=== PATIENT | female | born 1995 | race Caucasian/White ===

== ENCOUNTER 2016-06-17 17:48 | Inpatient (IN) | payer OTHER ==
[~2016-06-17] VITALS: Ht 170.2 cm; Wt 74.9 kg
[~2016-06-17 17:48] MED LIST: ACET50TA PO; IBUP-1114 PO; PRENTAB7 PO
[2016-06-17] MEDS ORDERED: IPRATROPIUM 0.5MG/ALBUTEROL 2.5MG INH SOL UD 3ML (DUONEB)(J7620) As Ordered ONE (18:19)
[2016-06-17] MEDS ORDERED: ALBUTEROL SULFATE 2.5 MG/0.5 ML INH NEB SOLN As Ordered ONE (18:20)
[2016-06-17] MEDS ORDERED: methylPREDNISolone INJ 125 MG/2 ML VIAL (J2930) As Ordered ONE (18:27)
[2016-06-17] MEDS ORDERED: ACETAMINOPHEN 325 MG TAB As Ordered ONE (18:27)
[2016-06-17 18:41] LABS: ABG BASE EXCESS -0.2 (-2.0-2.0); ABG DEVICE NASAL CANN; ABG HCO3 22.5 MEQ/L (22.0-26.0); ABG PARTIAL PRESSURE CO2 30.8 mmHg (35.0-45.0); ABG PARTIAL PRESSURE O2 80.4 mmHg (75.0-100.0); ABG STANDARD HCO3 24.3 MEQ/L (22.0-26.0); ABG TOTAL CO2 23.5 MEQ/L (22.0-29.0); ABG pH (ARTERIAL) 7.482 UNITS (7.350-7.450)
[2016-06-17 19:18] LABS: MEAN CORPUSCULAR HEMOGLOBIN 28.5 pg (27.0-33.0); MEAN CORPUSCULAR HGB CONC 34.3 g/dl (32.0-36.5); MEAN CORPUSCULAR VOLUME 83.1 fl (80.0-96.0); PLATELET COUNT, AUTOMATED 242 k/mm3 (150-450); WHITE BLOOD COUNT 29.4 K/mm3 (4.0-10.0)
[2016-06-17 19:20] LABS: CONTROL LINE HCG INT CTR LINE PRESENT
--- NOTE | 2016-06-17 19:28 | REP ---
Chest one-view HISTORY: Shortness of breath Comparison: 01/23/2015 The lungs are clear. The heart is normal in size. The pulmonary vasculature is normal in appearance. Impression: No acute disease. Signed by Victor Manuel Ramirez MD 06/17/2016 07:20 P
[2016-06-17 19:32] LABS: ALBUMIN 3.4 GM/DL (3.2-5.2); ALBUMIN/GLOBULIN RATIO 0.94 (1.00-1.93); ALKALINE PHOSPHATASE 78 U/L (45-117); ALT/SGPT 32 U/L (12-78); ANION GAP 11 MEQ/L (8-16); AST/SGOT 29 U/L (15-37); BILIRUBIN,DIRECT 0.3 MG/DL (0.0-0.2); BILIRUBIN,TOTAL 0.7 MG/DL (0.2-1.0); BLOOD UREA NITROGEN 5 MG/DL (7-18); CALCIUM LEVEL 8.3 MG/DL (8.5-10.1); CARBON DIOXIDE LEVEL 25 MEQ/L (21-32); CHLORIDE LEVEL 101 MEQ/L (98-107); CREATININE FOR GFR 0.97 MG/DL (0.55-1.02); GLOMERULAR FILTRATION RATE > 60.0 (>60); GLUCOSE, FASTING 134 MG/DL (70-105); POTASSIUM SERUM 3.2 MEQ/L (3.5-5.1); SODIUM LEVEL 137 MEQ/L (136-145)
[2016-06-17] MEDS ORDERED: ONDANSETRON 4MG/2ML VIAL (J2405) IV PRN (20:00)
[2016-06-17] MEDS: IPRATROPIUM 0.5MG/ALBUTEROL 2.5MG INH SOL UD 3ML (DUONEB)(J7620) NEB SCH (20:00)
[2016-06-17] MEDS ORDERED: ALBUTEROL SULFATE 2.5 MG/0.5 ML INH NEB SOLN INH PRN (20:00)
[2016-06-17 20:02] LABS: AMPHETAMINES LEVEL URINE NEGATIVE (NEGATIVE); BENZODIAZEPINES URINE NEGATIVE (NEGATIVE); COCAINE METABOLITE URINE POSITIVE (NEGATIVE); METHADONE URINE NEGATIVE (NEGATIVE); OPIATES URINE POSITIVE (NEGATIVE); TRICYCLIC ANTIDEPRESS URINE NEGATIVE (NEGATIVE)
[2016-06-17 20:03] LABS: CONTROL LINE INT CTR LINE PRESENT
[2016-06-17 20:13] LABS: MAGNESIUM LEVEL 1.6 MG/DL (1.8-2.4)
[2016-06-17 20:29] LABS: BANDS 2 % (< 11); BASOPHILS 1 % (0-4)
[2016-06-17 20:30] LABS: DIFF SLIDE NUMBER 391
--- NOTE | 2016-06-17 20:58 | HPE ---
DATE OF ADMISSION: 06/17/2016 This is a patient without a primary medical provider. CHIEF COMPLAINT: Overdose. The following is a brief summary of her presentation: This is a 20-year-old who experienced an overdose today. She has never had an overdose before. She is a chronic user of four bags of heroin a day for several years. She has been in a 25-day rehabilitation program at [facility] around a year ago. She has not been feeling well for the last few days. She has had a fever and a cough without production of sputum. She describes no chest pain associated with cough, but she has had paroxysms of cough leading to nausea but no vomiting. She has had no change in bowel or bladder habits. No abdominal pain. She has been having chills and diaphoresis. She ALLERGIES: She has no known drug allergies. MEDICATIONS: She does not take any medications at home, does not use any puffers. PAST MEDICAL HISTORY: Notable for: Anxiety. Back pain. Depression. Opiate dependency. PAST SURGICAL HISTORY: Unremarkable. SOCIAL HISTORY: She smokes a half a pack a day. She lives in [place]. She is [place]. She does not use any alcohol. She has been using intravenous (IV) heroin for a couple of years. She has never had a positive HIV test. She denies sharing needles. FAMILY HISTORY: Notable for mother who is 42, alive and well and father who is 46, alive and well. REVIEW OF SYSTEMS: Notable for no headache, no visual changes. No runny nose, no sore throat. No neck pain. She has a cough, which is nonproductive. No chest pain. No palpitations. No focal weakness. She denies any sores on her body or areas of discomfort on her skin. No abdominal pain. No focal weakness. She has never had a seizure. PHYSICAL EXAMINATION: Blood pressure is 112/63, pulse 108, temperature 103.1, 98% on 2 liters nasal cannula. Weight is 58.97 kg giving her a body mass index of 20.4. She is awake and interactive, somewhat flattened affect. She is diaphoretic. Head is normocephalic. Sinuses are nontender. Pupils are equal, round, and reactive, anicteric. Nasal septum is midline. Mucous membranes are moist. Neck is supple. No cervical or supraclavicular adenopathy. Breathing is symmetrical. I:E ratio is 1:3. Somewhat diminished throughout. No wheezes, rales or rhonchi. Heart is in a regular rate and rhythm. Emergency room (ER) physician noted a murmur, which I do not appreciate currently. Radial pulses are 2+. Capillary refill is less than 2 seconds. There are multiple track walter noted on her hand. She has tattoos. Abdomen: Soft, doughy, nontender. Hypoactive bowel sounds. No lower extremity edema. She is moving all four extremities. Cranial nerves II-XII are grossly intact. Sodium is 137, potassium 3.2, chloride 101, carbon dioxide 25, BUN 5, creatinine 0.97, glucose is 134, calcium is 8.3, total bilirubin is 0.7, direct bilirubin is 0.3. AST 29, ALT 32, alkaline phosphatase is 78, C-reactive protein is 10.9, albumin 3.4, TSH is 0.117. White cell count is 29.4 without a differential. Hemoglobin 11.9. Platelets 242. ESR 47. UA is pending. Toxicology screen is pending. Urine and blood culture are pending. Chest x-ray shows no acute disease. EKG shows no prolongation of the NC interval and sinus tachycardia with a rate of 101. ASSESSMENT: This is a 20-year-old with a likely upper respiratory infection. No evidence of pneumonia at this point on x-ray but possible bronchitis and/or endocarditis. The patient will require a two midnight hospital stay. PLAN: 1. Infectious disease. To treat for early pneumonia and/or bronchitis as well as endocarditis. The patient will be treated with ceftriaxone, Zithromax, as well as IV vancomycin. Blood cultures have been sent in the emergency department. Transthoracic echo is ordered. Erythrocyte sedimentation rate (ESR) will be repeated in the morning. The patient has a significant white cell count which may be augmented by the demargination related to her overdose event. 2. The patient has opiate dependence. Will likely go into withdrawal. I have started her on methadone with instructions to hold for sedation. 3. The patient has hypokalemia which will be repleted. 4. The patient has a low thyroid-stimulating hormone (TSH). Will check a free T4. 5. The patient uses tobacco. Will order a nicotine patch.
[2016-06-17] MEDS ORDERED: cefTRIAXone SOD 1 GM VIAL (J0696) As Ordered ONE (21:13)
[2016-06-17 21:42] LABS: FREE T4 1.51 NG/DL (0.76-1.46)
--- NOTE | 2016-06-17 22:05 | ECGEPIP ---
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
[2016-06-17] MEDS ORDERED: POTASSIUM CHLORIDE 10 MEQ SR TABLET PO SCH (23:00)
[2016-06-18] MEDS ORDERED: VANCOMYCIN 1000 MG/20 ML VIAL (J3370) As Ordered ONE ×3 (00:41→16:22)
[2016-06-18] MEDS: VANCOMYCIN HCL 1,000 MG, VIAL MATE ADAPTER 1 EACH in D5W 250 ML IV SCH ×3 (00:58→16:26)
[2016-06-18] MEDS ORDERED: POTASSIUM CHLORIDE 10 MEQ SR TABLET As Ordered ONE (01:00)
[2016-06-18] MEDS: SENOKOT S TAB PO SCH ×3 (01:02→20:23)
[2016-06-18] MEDS: METHADONE 10 MG TAB (S0109) PO SCH ×4 (01:03→20:24)
--- NOTE | 2016-06-18 01:37 | PHACANCOPD ---
PHARMACY VANCOMYCIN DOSING Pt Demographics Demographics Patient Age:20 , Weight: , Gender: female Adjusted Body Weight Date: 06/18/16, Adjusted Body Weight: [58.97] Kg(ACTUAL WT) Vancomycin Vancomycin Target Ranges: 15-20 mcg/ml Vancomycin Load Y/N: No Load Dose Date Time Vancomycin Load Dose: Date: Time: Vancomycin Dose Date: 06/18/16. Current Vancomycin Dose: [1 gm iv Q8H] Intermittent Dosing?: No Labs Labs Laboratory Tests 06/17/16 18:43 Red Blood Count 4.13, Mean Corpuscular Volume 83.1, Mean Corpuscular Hemoglobin 28.5, Mean Corpuscular Hemoglobin Concent 34.3, Red Cell Distribution Width 13.0 Micro Microbiology 06/17/16 Blood Culture, Received Pending 06/17/16 Blood Culture, Received Pending 06/17/16 Blood Culture, Received Pending 06/17/16 Influenza Virus Type A Antigen - Final, Complete 06/17/16 Influenza Virus Type B Antigen - Final, Complete 06/17/16 Urine Culture, Received Pending Creatinine Clearance Date:06/18/16. Creatinine Clearance: [86.9]CALCULATED. Pending Labs VANCO TROUGH ORDERED FOR 06/18@1500 Assessment and Plan Maintaining Current Dose?: Yes Reason for dose change: No Dose Change Pharmacist Note Pharmacist Note Date: 06/18/16. Pharmacist note:NEW ADMISSION W/Vancomycin consult to treat pneumonia(Azithromycin 500mg IV Q24H,Ceftriaxone 2 GM Q24H and Vancomycin ordered).Patient CRCL calculated as 86.9>Will begin w/Vancomycin 1 GM IV Q8H- draw trough @ 1500 on 06/18 .Will continue to monitor SCr and levels. TING GANDHI [facility]ARMAC[facility] Jun 18, 2016 01:37
[2016-06-18] MEDS ORDERED: AZITHROMYCIN INJ 500MG VIAL (J0456) As Ordered ONE (01:52)
[2016-06-18] MEDS: AZITHROMYCIN INJ 500 MG, VIAL MATE ADAPTER 1 EACH in D5W 250 ML IV SCH ×2 (01:56→23:19)
[2016-06-18] MEDS: NS 1,000 ML IV SCH ×2 (01:56→02:32)
[2016-06-18 04:00] VITALS: BP 109/63
[2016-06-18 08:00] VITALS: BP 107/70
[2016-06-18 08:21] LABS: ANION GAP 9 MEQ/L (8-16); BLOOD UREA NITROGEN 5 MG/DL (7-18); CALCIUM LEVEL 8.5 MG/DL (8.5-10.1); CARBON DIOXIDE LEVEL 25 MEQ/L (21-32); CHLORIDE LEVEL 112 MEQ/L (98-107); CREATININE FOR GFR 0.59 MG/DL (0.55-1.02); GLOMERULAR FILTRATION RATE > 60.0 (>60); GLUCOSE, FASTING 102 MG/DL (70-105); POTASSIUM SERUM 3.9 MEQ/L (3.5-5.1); SODIUM LEVEL 146 MEQ/L (136-145)
[2016-06-18] MEDS ORDERED: D5W 1,000 ML IV SCH (08:30)
[2016-06-18] MEDS: IPRATROPIUM 0.5MG/ALBUTEROL 2.5MG INH SOL UD 3ML (DUONEB)(J7620) NEB SCH ×4 (08:35→20:41)
[2016-06-18] MEDS ORDERED: IPRATROPIUM 0.5MG/ALBUTEROL 2.5MG INH SOL UD 3ML (DUONEB)(J7620) As Ordered ONE ×3 (08:35→15:40)
[2016-06-18 08:40] LABS: BASO # 0.1 K/mm3 (0.0-0.2); BASO % 0.4 % (0.0-1.0); EOS % 0.2 % (0.0-3.0); LARGE UNSTAINED CELL # 0.1 K/mm3 (0.0-0.4); LARGE UNSTAINED CELL % 0.3 % (0.0-4.0); LYMPH % 4.6 % (24.0-44.0); MEAN CORPUSCULAR HEMOGLOBIN 27.1 pg (27.0-33.0); MEAN CORPUSCULAR VOLUME 84.9 fl (80.0-96.0); MONO # 0.4 K/mm3 (0.0-0.8); MONO % 2.1 % (0.0-5.0); NEUTROPHILS # 18.6 K/mm3 (1.8-7.7); NEUTROPHILS % 92.4 % (36.0-66.0); PLATELET COUNT, AUTOMATED 206 k/mm3 (150-450); RED CELL DISTRIBUTION WIDTH 14.4 % (11.5-14.5); WHITE BLOOD COUNT 20.1 K/mm3 (4.0-10.0)
[2016-06-18] MEDS ORDERED: ENOXAPARIN 40 MG/0.4 ML SYRINGE (J1650) As Ordered ONE (08:55)
[2016-06-18] MEDS ORDERED: NICOTINE 21MG/24HR 1 EA TRANSDERMAL As Ordered ONE (08:55)
[2016-06-18] MEDS: ENOXAPARIN 40 MG/0.4 ML SYRINGE (J1650) SC SCH (09:00)
[2016-06-18 09:28] LABS: ERYTHROCYTE SEDIMENTATION RATE 48 mm/hr (0-20)
[2016-06-18] MEDS: NICOTINE 14 MG/24 HR TRANSDERMAL TD SCH (09:51)
[2016-06-18 10:08] LABS: CONTROL LINE INT CTR LINE PRESENT; HIV SCRN NEGATIVE (NEGATIVE); HIV SCRN1 NEGATIVE (NEGATIVE)
[2016-06-18 12:00] VITALS: BP 106/66
[2016-06-18 15:36] LABS: ANION GAP 12 MEQ/L (8-16); BLOOD UREA NITROGEN 5 MG/DL (7-18); CALCIUM LEVEL 8.4 MG/DL (8.5-10.1); CARBON DIOXIDE LEVEL 23 MEQ/L (21-32); CHLORIDE LEVEL 110 MEQ/L (98-107); CREATININE FOR GFR 0.77 MG/DL (0.55-1.02); GLOMERULAR FILTRATION RATE > 60.0 (>60); GLUCOSE, FASTING 150 MG/DL (70-105); POTASSIUM SERUM 3.1 MEQ/L (3.5-5.1); SODIUM LEVEL 145 MEQ/L (136-145)
[2016-06-18 16:00] VITALS: BP 108/66
[2016-06-18] MEDS ORDERED: METHADONE 10 MG TAB (S0109) As Ordered ONE (16:22)
[2016-06-18] MEDS ORDERED: VANCOMYCIN HCL 500 MG in D5W MINI-BAG PLUS 100 ML IV ONE (17:00)
[2016-06-18] MEDS ORDERED: POTASSIUM CHLORIDE 10% LIQ 20 MEQ/15 ML UDC PO ONE (18:00)
--- NOTE | 2016-06-18 18:17 | IPNPDOC ---
Assessment/Plan Date Seen The patient was seen on 06/18/16. Plan / VTE VTE Prophylaxis Ordered?: Yes Plan Plan Text Viral Upper respiratory tract infection versus early pneumonia Chest x-ray with no acute findings noted Respiratory panel ordered Continue with ceftriaxone, Zithromax IV vancomycin for possible underlying endocarditis given the patient's history of IV drug use Blood cultures pending Transthoracic echo pending. Patient's respiratory status improved since admission Leukocytosis Likely secondary to above Downward trending from 29-20K this morning Blood cultures pending Patient has been afebrile today We will continue to monitor her white blood cell count Opiate dependence I discussed extensively the need for the patient abstain from drug abuse as her toxicology screen was positive for cannabinoids, cocaine, and opiates We Have offered her help regarding getting into a rehabilitation facility-she states that she is on the waiting list for [facility] Continue methadone Hypokalemia Repleted Tobacco use. Continue nicotine patch. Subjective Review of Systems CC/HPI The patient is a 20-year-old female admitted with a reason for visit of Pneumonia. General: Denies: Chills, Night Sweats Constitutional: Denies: Chills, Fever Skin: Denies: Lesions, Rash Pulmonary: Reports: Cough, Denies: Dyspnea Gastrointestinal: Denies: Abdominal Pain, Nausea, Vomiting Hematologic: Denies: Bleeding Excessively, Bruising Objective Physical Examination General Exam: Positive: Alert, Cooperative, No Acute Distress ENT Exam: Positive: Atraumatic, Mucous membr. moist/pink Neck Exam: Negative: JVD Chest Exam: Positive: Clear to auscultation, Negative: Rales, Rhonchi, Wheezing Heart Exam: Positive: Normal S1, Normal S2, Rate Normal Abdomen Exam: Positive: Soft, Negative: Tenderness Extremity Exam: Negative: Edema, Tenderness Vital Signs/I&O Vital Signs Date Time Temp Pulse Resp B/P Pulse Ox O2 Delivery O2 Flow Rate FiO2 06/18/16 16:26 18 06/18/16 16:00 97.2 69 108/66 94 Room Air I&O- Last 24 Hours up to 6 AM 06/18/16 06:00 Output Total 300 ml Balance -300 ml Laboratory Data Labs 24H Laboratory Tests 2 06/17/16 18:27: Arterial Blood pH 7.482H, Arterial Blood Partial Pressure CO2 30.8L, Arterial Blood Partial Pressure O2 80.4, Arterial Blood Total CO2 23.5, Arterial Blood HCO3 22.5, Arterial Blood Base Excess -0.2, Arterial Blood Oxygen Saturation 96.6, Blood Gas Bicarbonate Standard 24.3, Oxygen Delivery Device NASAL ANMOL 06/17/16 18:43: Acetaminophen Level < 2.0L, Aspartate Amino Transf (AST/SGOT) 29, Alanine Aminotransferase (ALT/SGPT) 32, Alkaline Phosphatase 78, Total Bilirubin 0.7, Direct Bilirubin 0.3H, Albumin 3.4, Albumin/Globulin Ratio 0.94L, Anion Gap 11, Neutrophils 87H, Band Neutrophils 2, Lymphocytes (Manual) 7L, Monocytes (Manual ) 3, Basophils (Manual) 1, Red Blood Cell Morphology NORMAL, Platelet Estimate NORMAL, C-Reactive Protein, Quantitative 10.90H, Calcium Level 8.3L, Erythrocyte Sedimentation Rate 47H, Ethyl Alcohol Level 0.003, Free Thyroxine 1.51H, Glomerular Filtration Rate > 60.0, Human Chorionic Gonadotropin, Qual NEGATIVE, Lactic Acid Level 1.1, Magnesium Level 1.6L, Salicylates Level 1.9L, Thyroid Stimulating Hormone (TSH) 0.117L, Total Protein 7.0 06/17/16 19:39: Urine Amorphous Sediment SMALLH, Urine Amphetamine Level NEGATIVE, Urine Benzodiazepines Screen NEGATIVE, Urine Cannabinoids POSITIVEH, Urine Cocaine Metabolite POSITIVEH, Urine Opiates Screen POSITIVEH, Urine Appearance CLEAR, Urine Color STRAW, Urine pH 7.0, Urine Specific [place] 1.001L, Urine Protein NEGATIVE, Urine Glucose (UA) NEGATIVE, Urine Ketones NEGATIVE, Urine Urobilinogen 0.2, Urine Bilirubin NEGATIVE, Urine Leukocyte Esterase 1+H, Urine Bacteria (Auto) 1+H, Urine Barbiturates, Qualitative NEGATIVE, Urine Blood 1+H, Urine Calcium Carbonate Cryst(Auto) , Urine Calcium Oxalate Cryst (Auto) , Urine Calcium Phosphate [place] (Auto) , Urine Cellular Casts , Urine Cystine Crystals , Urine Granular Casts (Auto) , Urine Hyaline Casts (Auto) 0, Urine Leucine Crystals , Urine Methadone Screen NEGATIVE, Urine Mucus (Auto) , Urine Nitrite NEGATIVE, Urine Oval Fat Bodies (Auto) , Urine RBC (Auto) 0, Urine Renal Epithelial Cells , Urine Sperm (Auto) , Urine Squamous Epithelial Cells 1 , Urine Transitional Epithelial Cells , Urine Trichomonas (Auto) , Urine Tricyclic Antidepressants NEGATIVE, Urine Triple Phosphate Cryst (Auto) , Urine Tyrosine Crystals , Urine Uric Acid Crystals (Auto) , Urine WBC (Auto) 1, Urine Waxy Casts (Auto) , Urine Yeast-Like Cells (Auto) 06/18/16 07:39: Anion Gap 9, C-Reactive Protein, Quantitative 12.10H, Calcium Level 8.5, Erythrocyte Sedimentation Rate 48H, Glomerular Filtration Rate > 60.0, Magnesium Level 2.0, White Blood Count 20.1H, Red Blood Count 4.22, Hemoglobin 11.4L, Hematocrit 35.8L, Mean Corpuscular Volume 84.9, Mean Corpuscular Hemoglobin 27.1, Mean Corpuscular Hemoglobin Concent 32.0, Red Cell Distribution Width 14.4, Platelet Count 206, Neutrophils (%) (Auto) 92.4H, Lymphocytes (%) (Auto) 4.6L, Monocytes (%) (Auto) 2.1, Eosinophils (%) (Auto) 0.2, Basophils (%) (Auto) 0.4, Neutrophils # (Auto) 18.6H, Lymphocytes # (Auto) 1.0L, Monocytes # (Auto) 0.4, Eosinophils # (Auto) 0.0, Basophils # (Auto) 0.1, Blood Urea Nitrogen 5L, Creatinine 0.59, Sodium Level 146#H, Potassium Level 3.9 #, Chloride Level 112H, Carbon Dioxide Level 25, HIV (1&2) Antibody NEGATIVE, HIV P24 Antigen NEGATIVE, Large Unclassified Cells # 0.1, Large Unclassified Cells % 0.3 06/18/16 14:57: Anion Gap 12, Blood Urea Nitrogen 5L, Creatinine 0.77, Sodium Level 145, Potassium Level 3.1#L, Chloride Level 110H, Carbon Dioxide Level 23, Calcium Level 8.4L, Glomerular Filtration Rate > 60.0, Vancomycin Level Trough 11.5 CBC/BMP Laboratory Tests 06/17/16 18:43 Red Blood Count 4.13, Mean Corpuscular Volume 83.1, Mean Corpuscular Hemoglobin 28.5, Mean Corpuscular Hemoglobin Concent 34.3, Red Cell Distribution Width 13.0 06/18/16 07:39 Red Blood Count 4.22, Mean Corpuscular Volume 84.9, Mean Corpuscular Hemoglobin 27.1, Mean Corpuscular Hemoglobin Concent 32.0, Red Cell Distribution Width 14.4 , Calcium Level 8.5, Neutrophils (%) (Auto) 92.4 H, Lymphocytes (%) (Auto) 4.6 L , Monocytes (%) (Auto) 2.1, Eosinophils (%) (Auto) 0.2, Basophils (%) (Auto) 0.4 , Neutrophils # (Auto) 18.6 H, Lymphocytes # (Auto) 1.0 L, Monocytes # (Auto) 0.4, Eosinophils # (Auto) 0.0, Basophils # (Auto) 0.1 06/18/16 14:57 Calcium Level 8.4 L Microbiology Microbiology 06/17/16 Blood Culture, Received Pending 06/17/16 Blood Culture, Received Pending 06/17/16 Blood Culture, Received Pending 06/17/16 Influenza Virus Type A Antigen - Final, Complete 06/17/16 Influenza Virus Type B Antigen - Final, Complete 06/17/16 Urine Culture - Final, Complete IGNACIO TOBAR MD Jun 18, 2016 18:17
--- NOTE | 2016-06-18 19:53 | ECHO ---
DATE OF PROCEDURE: 06/18/2016 REFERRING PHYSICIAN: Dr. Guthrie INDICATION: Fever. HEIGHT: 170 cm WEIGHT:59 kg. DIMENSIONS: IVS- 0.7 LV- 4.6 LVPW- 0.7 LA- 3.7 Aorta- 3.0 FINDINGS: The study is of good technical quality. Left ventricle is normal size and systolic function with estimated ejection fraction (EF) 60-65%. Right ventricle is also normal size and systolic function. All four cardiac valves were well seen and appear normal. No pericardial effusion is noted. Inferior vena cava is normal size. Aortic root, aortic arch and visualized segment of abdominal aorta all appear normal. Doppler interrogation reveals trace aortic insufficiency and no aortic stenosis. There is no significant mitral stenosis or insufficiency and trace tricuspid insufficiency. Calculated pulmonary artery pressure is within normal limits. Trace pulmonic insufficiency is also seen. Mitral inflow pattern and tissue Doppler imaging of mitral annulus reveal normal diastolic function. CONCLUSIONS: 1. Study is of good technical quality. 2. Normal left ventricle (LV) size, systolic and diastolic function. 3. No hemodynamically significant valvular disease. 4. Normal central venous pressure and pulmonary artery pressure. COMMENTS: Subacute bacterial endocarditis (SBE) prophylaxis is not recommended. Study does not provide supportive evidence for bacterial endocarditis, but if high clinical suspicion is present transesophageal echocardiogram will provide more anatomical detail. [facility]
--- NOTE | 2016-06-18 19:57 | EDDOCDS ---
Nurse's Notes [facility] Name: Mily Pagan Age: 20 yrs Sex: Female : 1995 Arrival Date: 06/17/2016 Time: 17:48 Bed Admit Hold Private MD: Diagnosis: Fever, unspecified-rule out endocarditis; heart murmur;Poisoning by unspecified drugs, medicaments and biological substances, accidental (unintentional)-heroine overdose;Hypoxemia Presentation: 06/17 17:52 Presenting complaint: EMS states: Patient was found unconscious after using 4 bags of kcs heroin - given 2 mg of Narcan IN and then followed with a 2nd 2 mg after unable to get IV access - patient was coming around after that. Initially patient had agonal respirations and respirations were being assisted. Suicide/Homicide risk assessment- the patient denies having any suicidal and/or homicidal ideations and does not present with any other emotional, behavioral or mental health complaints. 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 Transition of care: patient was not received from another setting of care. Care prior to arrival: See EMS report. Medications administered prior to arrival: Narcan Glucose check. 220. 17:52 Method Of Arrival: Ambulance kcs 18:01 Adult Sepsis Screening: Patient has new or worsening altered mentation (1 point). kcs Patient's respiratory rate is less than 22. Systolic blood pressure is greater than 100. Patient has a qSOFA score of 0- Negative Sepsis Screen. 18:01 Acuity: SUZIE Level 3 kcs Triage Assessment: 17:55 General: Appears comfortable, well developed, well nourished, well groomed, Behavior is kcs cooperative, quiet. Pain: Location: head Pain currently is 10 out of 10 on a pain scale. HIV screening NA for this visit Offered previously. The patient is triaged at the bedside. See Assessment in Nurses Notes section of ED record. Neurological: Level of Consciousness is awake, alert. Respiratory: Airway is patent Respiratory effort is even, unlabored, Respiratory pattern is regular, symmetrical. Derm: Skin is intact, is healthy with good turgor, Skin is dry, Skin is normal. APPLICATIONS SUPPORT ANALYST: 06/18 00:53 Unknown cf2 Historical: - Allergies: No known drug Allergies; - Home Meds: 1. none - PMHx: Anxiety; back pain; Depression; opiate dependency; - PSHx: none; - Social history: Smoking status: Patient uses tobacco products, light tobacco smoker. No barriers to communication noted, The patient speaks fluent Welsh, Patient uses street drugs, heroin. - Family history: Not pertinent. - : The pt / caregiver states he / she is not on anticoagulants. Home medication list is obtained from family members. - Exposure Risk Screening:: None identified. Screenin/23 19:28 Screening information is obtained from the patient. Fall risk: At risk due to apparent kc3 chemical impairment, The following interventions are performed due to a positive Fall Risk Screen: Fall Risk is added to Special Handling on the patient Summary Screen. A Fall Risk Bracelet was applied to the patient. Side Rails are placed in the up position. A Call Ponce is given with instruction to call for help when getting out of bed. Fall Alert bracelet is placed on the patient. Assistance ADL's: requires no assistance with activities of daily living. 22:00 Abuse/DV Screen: The patient / caregiver reports he/she is: not in a situation that cf2 causes fear, pain or injury. Nutritional screening: No deficits noted. Advance Directives: Further advance directive information is declined. home support is adequate. Assessment: 18:30 General: Appears uncomfortable, Behavior is appropriate for age, cooperative, fussy. kc3 Pain: Denies pain. Neurological: Level of Consciousness is awake, alert, obeys commands, Oriented to person, place, time. Cardiovascular: Rhythm is regular. Respiratory: Respiratory effort is even, unlabored. Derm: Skin is intact, Skin temperature is hot multiple minor lacerations from previous drug use to multiple body areas. Musculoskeletal: Circulation, motion, and sensation intact. 19:30 General: Appears in no apparent distress, Behavior is appropriate for age, cooperative. js15 Neurological: Level of Consciousness is awake, alert, obeys commands, Oriented to person, place, time. Cardiovascular: Rhythm is sinus tachycardia. Respiratory: Airway is patent Respiratory effort is even, unlabored, Respiratory pattern is regular, symmetrical. Derm: Skin is intact, Skin is moist, Skin temperature is hot. 19:41 General: Patient up to bedside commode to urinate with help of RN. Sample obtained and kas2 sent to lab.. 20:30 Reassessment: Patient appears in no apparent distress at this time. Pt resting on js15 stretcher with eyes open, significant other at bedside, respirations even and unlabored; skin pink, moist, warm, will continue to monitor. 21:30 Reassessment: Patient appears in no apparent distress at this time. Pt resting on js15 stretcher with eyes closed, respirations even and unlabored; skin pink, warm, dry. 22:30 General: Appears in no apparent distress, to be sleeping. Cardiovascular: Rhythm is. js15 Cardiovascular: Rhythm is sinus rhythm. Respiratory: Airway is patent Respiratory effort is even, unlabored, Respiratory pattern is regular, symmetrical. Derm: Skin is intact, Skin is normal. 23:46 General: Patient received from previous shift resting comfortably, offers no complaints cf2 at present time. 06/18 00:49 Adult Sepsis Screening: The patient does not have new or worsening altered mentation. cf2 Patient's respiratory rate is less than 22. Systolic blood pressure is greater than 100. Patient has a qSOFA score of 0- Negative Sepsis Screen. General: Patient resting comfortably. Offers no complaints at present time. . 19:46 Adult Sepsis Screening: The patient does not have new or worsening altered mentation. nn1 Patient's respiratory rate is less than 22. Systolic blood pressure is greater than 100. Patient has a qSOFA score of 0- Negative Sepsis Screen. General: Appears in no apparent distress. Pain: Denies pain. Neurological: Level of Consciousness is awake, alert, obeys commands. Respiratory: Airway is patent Respiratory effort is even, unlabored, Respiratory pattern is regular, symmetrical. Derm: Skin is normal. Vital Signs: 06/17 17:59 BP 116 / 57; Pulse 104; Resp 20; Temp 103.1(O); Pulse Ox 90% on 2 lpm NC; Weight 58.97 jlf kg; Height 5 ft. 7 in. (170.18 cm); Pain 10/10; 18:08 BP 107 / 55 (auto/); kc3 18:10 Pulse 112 MON; Pulse Ox 92% ; kc3 18:30 BP 110 / 65 (auto/); kc3 18:30 Pulse 100 MON; Pulse Ox 95% ; kc3 19:07 BP 112 / 63 (auto/); kc3 19:07 Pulse 108 MON; Pulse Ox 94% ; kc3 19:29 Pulse 79 MON; Pulse Ox 98% ; js15 19:30 BP 141 / 71 (auto/); js15 20:00 BP 123 / 84 (auto/); js15 20:00 Pulse 81 MON; Pulse Ox 99% ; js15 21:00 Temp 96.9(O); js15 21:26 Pulse 62 MON; Pulse Ox 99% ; js15 21:27 BP 131 / 58 (auto/); js15 21:30 BP 125 / 63 (auto/); js15 21:30 Pulse 61 MON; Pulse Ox 99% ; js15 21:44 Pulse 55 MON; Pulse Ox 100% ; js15 21:45 BP 132 / 69 (auto/); js15 22:00 Pulse Ox 100% ; cf2 22:00 BP 129 / 80 (auto/); cf2 22:12 Pulse 62 MON; Pulse Ox 100% ; js15 22:15 BP 129 / 66 (auto/); 15 22:29 Pulse 53 MON; Pulse Ox 99% ; 15 22:30 BP 133 / 76 (auto/); 15 22:44 Pulse 53 MON; Pulse Ox 99% ; 15 22:45 BP 125 / 72 (auto/); js15 23:00 BP 132 / 80 (auto/); 15 23:00 Pulse 69 MON; Pulse Ox 97% ; js15 23:15 BP 137 / 80 (auto/); js15 23:15 Pulse 62 MON; Pulse Ox 97% ; js15 23:29 Pulse 62 MON; Pulse Ox 97% ; 15 23:30 BP 144 / 88 (auto/); js15 23:44 Pulse 69 MON; Pulse Ox 97% ; js15 23:45 BP 144 / 90 (auto/); 15 06/18 00:00 Pulse 58 MON; Pulse Ox 100% ; cf2 00:00 BP 170 / 129 (auto/); cf2 00:15 Pulse 58 MON; Pulse Ox 99% ; cf2 00:15 BP 168 / 106 (auto/); cf2 00:24 Pulse 74 MON; Pulse Ox 97% ; cf2 00:28 Pulse 64 MON; Pulse Ox 96% ; cf2 00:30 Pulse 62 MON; Pulse Ox 100% ; cf2 00:33 Pulse 56 MON; Pulse Ox 98% ; cf2 00:37 Pulse 60 MON; Pulse Ox 99% ; cf2 00:44 Pulse 62 MON; Pulse Ox 99% ; cf2 19:51 BP 132 / 82; Pulse 54; Resp 18; Temp 96.6(O); Pulse Ox 95% on R/A; nn1 06/17 17:59 Body Mass Index 20.36 (58.97 kg, 170.18 cm) [facility] Vitals: 06/17 17:55 Log In Time N/A - ambulance arrival. [facility] ED Course: 17:48 Patient visited by Summer Chung, Building Performance Specialist. deg 17:48 Patient moved to Waiting deg 17:57 Amalia Duran,RN is Primary Nurse. kcs 17:57 Patient moved to 3 kcs 17:59 Patient visited by Bryce Stoddard PCA. jlf 17:59 Patient visited by Bryce Stoddard PCA. jlf 18:01 Triage Initiated kcs 18:05 Ludwin Wiley MD is Attending Physician. ml 18:06 Patient visited by Ludwin Wiley MD. ml 18:15 Patient visited by Bryce Stoddard PCA. jlf 18:15 Pt greeted and oriented to ED. Patient advised of names of staff involved in care, [facility] location of call ponce, wait times and NPO status. Patient has correct armband on for positive identification. Placed in psych safe attire. Bed in low position. Side rails up X2. ekg monitor on. Pulse ox on. NIBP on. 18:16 Patient visited by Bryce Stoddard PCA. jlf 18:33 -Arterial Blood Gas Sent. js11 18:40 Inserted saline lock: 20 gauge in right and blood collected. The patient tolerated the kc3 procedure well. right EJ placed by Dr. Woody. 18:46 BLOOD CULTURES Sent. kc3 18:46 BLOOD CULTURES Sent. kc3 18:50 Lactic Acid (Woody tube on ice) Sent. kc3 18:50 Acetaminophen Level Sent. kc3 18:50 Basic Metabolic Profile Sent. kc3 18:50 Complete Blood Count Sent. kc3 18:50 Ethyl Alcohol (ethanol) Sent. kc3 18:50 HCG,Serum Qualitative Sent. kc3 18:50 Liver Profile Sent. kc3 18:50 Thyroid Stimulating Hormone Sent. kc3 18:50 Salicylate Level Sent. kc3 19:21 Jasson Guthrie MD is Hospitalizing Provider. ml 19:26 EKG done. (by ED staff). Reviewed by Ludwin Wiley MD. jlm 19:42 Patient visited by Jessica Ramos RN. kas2 19:42 Urine collected. Clean catch specimen. Urine specimen sent to lab. kas2 19:58 Chest, 1 View Returned. EDMS 20:04 -Influenza A&B Rapid Antigen - Nose Sent. js15 20:43 Patient moved to Admit Hold tmm1 20:44 [facility] Payment Agreement was scanned into [employer] and attached to record. gjb 21:45 Primary Nurse role handed off by Amalia Duran RN carol 22:00 The patient / caregiver is instructed regarding the plan of care and ED course. Report cf2 given to ER hold Nurse. 22:00 No procedures done that require assistance. cf2 22:08 EKG-ADULT Returned. EDMS 23:25 Paty Martinez RN is Primary Nurse. cf2 23:25 Patient visited by Paty Martinez RN. cf2 23:40 Patient visited by Paty Martinez RN. cf2 06/18 00:16 Mary Kay Gomes RN is Primary Nurse. carol 00:27 moved to hospital bed. Repositioned patient. Linen changed. ekg monitor on. Pulse jlm ox on. NIBP on. 00:29 Patient visited by Petra Muhammad, Building Performance Specialist. jlm 00:40 Patient visited by Petra Muhammad, Building Performance Specialist. jlm 00:40 Assisted to bedside commode. jlm 00:49 Patient visited by Paty Martinez RN. cf2 01:29 Primary Nurse role handed off by Mary Kay Gomes RN carol 09:34 T-Sheet-- Draft Copy was scanned into [employer] and attached to record. gb 19:04 Patient visited by Montez Price PCA. kb5 Administered Medications: 06/17 18:41 Drug: Albuterol 5 mg [albuterol sulfate 2.5 mg/0.5 mL solution for nebulization (1 mL)] js11 Route: Nebulizer; 18:41 Drug: Albuterol-Ipratropium 3 ml [ipratropium-albuterol 0.5 mg-3 mg(2.5 mg base)/3 mL js11 nebulization soln (3 mL)] Route: Inhalation; 18:50 Drug: Acetaminophen 650 mg [acetaminophen 325 mg tablet (2 tabs)] Route: PO; kc3 21:00 Follow up: Temp 96.9 Oral; Response: Temperature is decreased 15 19:00 Drug: NS 0.9% 1000 ml [sodium chloride 0.9 % intravenous solution] Route: IV; Rate: js15 bolus; Site: right jugular; 21:30 Follow up: IV Status: Completed infusion; IV Intake: 1000ml 15 19:01 Drug: Solu-MEDROL 125 mg [Solu-Medrol 500 mg intravenous solution (125 mg)] Route: IVP; kc3 Site: right jugular; 21:25 Drug: cefTRIAXone 2 grams [ceftriaxone 1 gram solution for injection] Route: IVPB; js15 Infused Over: 30 mins; Site: right jugular; 21:30 Drug: NS 0.9% 1000 ml [sodium chloride 0.9 % intravenous solution] Route: IV; Rate: js15 bolus; Site: right jugular; 06/18 00:45 Drug: vancomycin (loading dose for pt. wt. 40-49kg) 1000 mg [vancomycin 500 mg cf2 intravenous solution] Route: IVPB; Site: left antecubital; Intake: 06/17 21:30 IV: 1000.00ml; Total: 1000.00ml. js15 RT: 18:33 ABG's drawn from left radial artery allens test done and positive pressure held for 5 js11 minutes no bleeding noted specimen sent pt. tolerated well. 18:41 Initial Med Neb Given as ordered Patient was instructed and evaluated on procedure js11 Patient tolerated procedure well without adverse effect. Respiratory: Breath sounds are diminished bilaterally. Order Results: Lab Order: -Arterial Blood Gas; SPEC'M 06/17/16 18:27 Test: ABG pH (ARTERIAL); Value: 7.482; Range: 7.350-7.450; Abnormal: Above high normal; Units: UNITS; Status: F Test: ABG PARTIAL PRESSURE CO2; Value: 30.8; Range: 35.0-45.0; Abnormal: Below low normal; Units: mmHg; Status: F Test: ABG PARTIAL PRESSURE O2; Value: 80.4; Range: 75.0-100.0; Units: mmHg; Status: F Test: ABG TOTAL CO2; Value: 23.5; Range: 22.0-29.0; Units: MEQ/L; Status: F Test: ABG HCO3; Value: 22.5; Range: 22.0-26.0; Units: MEQ/L; Status: F Test: ABG BASE EXCESS; Value: -0.2; Range: -2.0-2.0; Status: F Test: ABG STANDARD HCO3; Value: 24.3; Range: 22.0-26.0; Units: MEQ/L; Status: F Test: ABG O2 SATURATION; Value: 96.6; Range: 95.0-99.0; Units: %; Status: F Test: ABG DEVICE; Value: NASAL ANMOL; Status: F Lab Order: Acetaminophen Level; SPEC'M 06/17/16 18:43 Test: ACETAMINOPHEN LEVEL; Value: < 2.0; Range: 10.0-30.0; Abnormal: Below low normal; Units: UG/ML; Status: F Lab Order: Basic Metabolic Profile; SPEC'M 06/17/16 18:43 Test: GLUCOSE, FASTING; Value: 134; Range: 70-105; Abnormal: Above high normal; Units: MG/DL; Status: F Test: BLOOD UREA NITROGEN; Value: 5; Range: 7-18; Abnormal: Below low normal; Units: MG/DL; Status: F Test: CREATININE FOR GFR; Value: 0.97; Range: 0.55-1.02; Units: MG/DL; Status: F Test: SODIUM LEVEL; Range: 136-145; Units: MEQ/L; Status: I Test: POTASSIUM SERUM; Range: 3.5-5.1; Units: MEQ/L; Status: I Test: CHLORIDE LEVEL; Range: 98-107; Units: MEQ/L; Status: I Test: CARBON DIOXIDE LEVEL; Range: 21-32; Units: MEQ/L; Status: I Test: ANION GAP; Range: 8-16; Units: MEQ/L; Status: I Test: CALCIUM LEVEL; Range: 8.5-10.1; Units: MG/DL; Status: I Test: GLOMERULAR FILTRATION RATE; Value: > 60.0; Range: >60; Status: F Test: SODIUM LEVEL; Value: 137; Range: 136-145; Units: MEQ/L; Status: F Test: POTASSIUM SERUM; Value: 3.2; Range: 3.5-5.1; Abnormal: Below low normal; Units: MEQ/L; Status: F Test: CHLORIDE LEVEL; Value: 101; Range: 98-107; Units: MEQ/L; Status: F Test: CARBON DIOXIDE LEVEL; Value: 25; Range: 21-32; Units: MEQ/L; Status: F Test: ANION GAP; Value: 11; Range: 8-16; Units: MEQ/L; Status: F Test: CALCIUM LEVEL; Value: 8.3; Range: 8.5-10.1; Abnormal: Below low normal; Units: MG/DL; Status: F Test Note: ; Units are mL/min/1.73 m2 Chronic Kidney Disease Staging per NKF: Stage I & II GFR >=60 Normal to Mildly Decreased Stage III GFR 30-59 Moderately Decreased Stage IV GFR 15-29 Severely Decreased Stage V GFR <15 Very Little GFR Left ESRD GFR <15 on 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 Lab Order: Complete Blood Count; [facility] 06/17/16 18:43 Test: WHITE BLOOD COUNT; Value: 29.4; Range: 4.0-10.0; Abnormal: Above high normal; Units: K/mm3; Status: F Test: RED BLOOD COUNT; Value: 4.13; Range: 4.00-5.40; Units: M/mm3; Status: F Test: HEMOGLOBIN; Value: 11.8; Range: 12.0-16.0; Abnormal: Below low normal; Units: g/dl; Status: F Test: HEMATOCRIT; Value: 34.3; Range: 36.0-47.0; Abnormal: Below low normal; Units: %; Status: F Test: MEAN CORPUSCULAR VOLUME; Value: 83.1; Range: 80.0-96.0; Units: fl; Status: F Test: MEAN CORPUSCULAR HEMOGLOBIN; Value: 28.5; Range: 27.0-33.0; Units: pg; Status: F Test: MEAN CORPUSCULAR HGB CONC; Value: 34.3; Range: 32.0-36.5; Units: g/dl; Status: F Test: RED CELL DISTRIBUTION WIDTH; Value: 13.0; Range: 11.5-14.5; Units: %; Status: F Test: PLATELET COUNT, AUTOMATED; Value: 242; Range: 150-450; Units: k/mm3; Status: F Lab Order: Drug Eval Toxicology ED Only; SPEC'M 06/17/16 19:39 Test: AMPHETAMINES LEVEL URINE; Value: NEGATIVE; Range: NEGATIVE; Status: F Test: BARBITURATES URINE; Value: NEGATIVE; Range: NEGATIVE; Status: F Test: BENZODIAZEPINES URINE; Value: NEGATIVE; Range: NEGATIVE; Status: F Test: CANNABINOIDS URINE; Value: POSITIVE; Range: NEGATIVE; Abnormal: Above high normal; Status: F Test: COCAINE METABOLITE URINE; Value: POSITIVE; Range: NEGATIVE; Abnormal: Above high normal; Status: F Test: METHADONE URINE; Value: NEGATIVE; Range: NEGATIVE; Status: F Test: OPIATES URINE; Value: POSITIVE; Range: NEGATIVE; Abnormal: Above high normal; Status: F Test: TRICYCLIC ANTIDEPRESS URINE; Value: NEGATIVE; Range: NEGATIVE; Status: F Test Note: ; FALSE POSITIVE RESULTS CAN BE CAUSED BY THE USE OF PANTOPRAZOLE (PROTONIX). Lab Order: Ethyl Alcohol (ethanol); SPEC'M 06/17/16 18:43 Test: ETHYL ALCOHOL (ETHANOL); Value: 0.003; Range: 0.000-0.010; Units: %; Status: F Lab Order: HCG,Serum Qualitative; SPEC'M 06/17/16 18:43 Test: HCG, SERUM QUALITATIVE; Value: NEGATIVE; Range: NEGATIVE; Status: F Lab Order: Liver Profile; SPEC'M 06/17/16 18:43 Test: AST/SGOT; Value: 29; Range: 15-37; Units: U/L; Status: F Test: ALT/SGPT; Value: 32; Range: 12-78; Units: U/L; Status: F Test: ALKALINE PHOSPHATASE; Value: 78; Range: 45-117; Units: U/L; Status: F Test: BILIRUBIN,TOTAL; Value: 0.7; Range: 0.2-1.0; Units: MG/DL; Status: F Test: BILIRUBIN,DIRECT; Value: 0.3; Range: 0.0-0.2; Abnormal: Above high normal; Units: MG/DL; Status: F Test: TOTAL PROTEIN; Value: 7.0; Range: 6.4-8.2; Units: GM/DL; Status: F Test: ALBUMIN; Value: 3.4; Range: 3.2-5.2; Units: GM/DL; Status: F Test: ALBUMIN/GLOBULIN RATIO; Value: 0.94; Range: 1.00-1.93; Abnormal: Below low normal; Status: F Lab Order: Salicylate Level; [facility] 06/17/16 18:43 Test: SALICYLATE LEVEL; Value: 1.9; Range: 5.0-30.0; Abnormal: Below low normal; Units: MG/DL; Status: F Lab Order: Thyroid Stimulating Hormone; [facility] 06/17/16 18:43 Test: THYROID STIMULATING HORMONE; Value: 0.117; Range: 0.358-3.740; Abnormal: Below low normal; Units: uIU/ML; Status: F Lab Order: Lactic Acid (Woody tube on ice); [facility] 06/17/16 18:43 Test: LACTIC ACID LEVEL, LACTATE; Value: 1.1; Range: 0.4-2.0; Units: MMOL/L; Status: F Lab Order: -Blood Culture; [facility] 06/17/16 18:43 Test: BLOOD CULTURE; Value: No growth after 24 hours . All specimens observed; Status: F Test: BLOOD CULTURE; Value: for 7 days. Results final at that time.; Status: F Lab Order: BLOOD CULTURES; [facility] 06/17/16 18:43 Test: BLOOD CULTURE; Value: No growth after 24 hours . All specimens observed; Status: F Test: BLOOD CULTURE; Value: for 7 days. Results final at that time.; Status: F Lab Order: UA; [facility] 06/17/16 19:39 Test: APPEARANCE, URINE; Value: CLEAR; Range: CLEAR; Status: F Test: COLOR, URINE; Value: STRAW; Range: YELLOW; Status: F Test: PH,URINE; Value: 7.0; Range: 5.0-9.0; Units: UNITS; Status: F Test: SPECIFIC GRAVITY URINE AUTO; Value: 1.001; Range: 1.002-1.035; Abnormal: Below low normal; Status: F Test: PROTEIN, URINE AUTO; Value: NEGATIVE; Range: NEGATIVE; Units: mg/dL; Status: F Test: GLUCOSE, URINE (UA) AUTO; Value: NEGATIVE; Range: NEGATIVE; Units: mg/dL; Status: F Test: KETONE, URINE AUTO; Value: NEGATIVE; Range: NEGATIVE; Units: mg/dL; Status: F Test: UROBILINOGEN, URINE AUTO; Value: 0.2; Range: 0.0-2.0; Units: mg/dL; Status: F Test: BILIRUBIN, URINE AUTO; Value: NEGATIVE; Range: NEGATIVE; Status: F Test: NITRITE, URINE AUTO; Value: NEGATIVE; Range: NEGATIVE; Status: F Test: LEUKOCYTE ESTERASE, URINE AUTO; Value: 1+; Range: NEGATIVE; Abnormal: Above high normal; Status: F Test: BLOOD, URINE BLOOD; Value: 1+; Range: NEGATIVE; Abnormal: Above high normal; Status: F Test: WBC, URINE AUTO; Value: 1; Range: 0-3; Units: /HPF; Status: F Test: RBC, URINE AUTO; Value: 0; Range: 0-3; Units: /HPF; Status: F Test: BACTERIA, URINE AUTO; Value: 1+; Range: NEGATIVE; Abnormal: Above high normal; Status: F Test: SQUAMOUS EPITHELIAL CELL UR AU; Value: 1; Range: 0-6; Units: /HPF; Status: F Test: HYALINE CAST, URINE AUTO; Value: 0; Range: 0-1; Units: /LPF; Status: F Test: AMORPHOUS SEDIMENT; Value: SMALL; Range: NEGATIVE; Abnormal: Above high normal; Status: F Lab Order: Urine Culture; SPEC'M 06/17/16 19:39 Test: URINE CULTURE; Value: <EXTERNAL COMMENT eCWMed> FULL REPORT IN LAB NOTES (eCW and Medent).; Status: F Test: URINE CULTURE; Value: URINE CULTURE RESULT NO GROWTH CLINICAL SIGNIFICANCE 1 ORGANISM; Status: F Lab Order: -Influenza A&B Rapid Antigen - Nose; SPEC'M 06/17/16 19:56 Test: INFLUENZA A RAPID SCR by ICA; Value: INFLUENZA A RESULTS NEGATIVE; Status: F Test: INFLUENZA A RAPID SCR by ICA; Value: Comments:; Status: F Test: INFLUENZA B RAPID SCR by ICA; Value: INFLUENZA B RESULTS NEGATIVE; Status: F Test Note: ; The Influenza test is a direct rapid immunoassay for the qualitative detection of Influenza viral antigen. Cell culture (Viral Culture) testing should be considered to confirm NEGATIVE results and to assist in detecting other viruses that can provide similar clinical symptoms. Please contact the lab within 24 hours ([phone] if confirmatory testing is desired. Lab Order: ESR; [facility]' 06/17/16 18:43 Test: ERYTHROCYTE SEDIMENTATION RATE; Value: 47; Range: 0-20; Abnormal: Above high normal; Units: mm/hr; Status: F Lab Order: C REACTIVE PROTEIN QUANTITATIV; [facility]' 06/17/16 18:43 Test: C REACTIVE PROTEIN QUANTITATIV; Value: 10.90; Range: 0.00-0.30; Abnormal: Above high normal; Units: MG/DL; Status: F Lab Order: C REACTIVE PROTEIN QUANTITATIV; [facility]' 06/18/16 07:39 Test: C REACTIVE PROTEIN QUANTITATIV; Value: 12.10; Range: 0.00-0.30; Abnormal: Above high normal; Units: MG/DL; Status: F Lab Order: ERYTHROCYTE SEDIMENTATION RATE; [facility]' 06/18/16 07:39 Test: ERYTHROCYTE SEDIMENTATION RATE; Value: 48; Range: 0-20; Abnormal: Above high normal; Units: mm/hr; Status: F Lab Order: CBC WITH DIFFERENTIAL; [facility] 06/18/16 07:39 Test: WHITE BLOOD COUNT; Value: 20.1; Range: 4.0-10.0; Abnormal: Above high normal; Units: K/mm3; Status: F Test: RED BLOOD COUNT; Value: 4.22; Range: 4.00-5.40; Units: M/mm3; Status: F Test: HEMOGLOBIN; Value: 11.4; Range: 12.0-16.0; Abnormal: Below low normal; Units: g/dl; Status: F Test: HEMATOCRIT; Value: 35.8; Range: 36.0-47.0; Abnormal: Below low normal; Units: %; Status: F Test: MEAN CORPUSCULAR VOLUME; Value: 84.9; Range: 80.0-96.0; Units: fl; Status: F Test: MEAN CORPUSCULAR HEMOGLOBIN; Value: 27.1; Range: 27.0-33.0; Units: pg; Status: F Test: MEAN CORPUSCULAR HGB CONC; Value: 32.0; Range: 32.0-36.5; Units: g/dl; Status: F Test: RED CELL DISTRIBUTION WIDTH; Value: 14.4; Range: 11.5-14.5; Units: %; Status: F Test: PLATELET COUNT, AUTOMATED; Value: 206; Range: 150-450; Units: k/mm3; Status: F Test: NEUTROPHILS %; Value: 92.4; Range: 36.0-66.0; Abnormal: Above high normal; Units: %; Status: F Test: LYMPH %; Value: 4.6; Range: 24.0-44.0; Abnormal: Below low normal; Units: %; Status: F Test: MONO %; Value: 2.1; Range: 0.0-5.0; Units: %; Status: F Test: EOS %; Value: 0.2; Range: 0.0-3.0; Units: %; Status: F Test: BASO %; Value: 0.4; Range: 0.0-1.0; Units: %; Status: F Test: LARGE UNSTAINED CELL %; Value: 0.3; Range: 0.0-4.0; Units: %; Status: F Test: NEUTROPHILS #; Value: 18.6; Range: 1.8-7.7; Abnormal: Above high normal; Units: K/mm3; Status: F Test: LYMPH #; Value: 1.0; Range: 1.5-6.5; Abnormal: Below low normal; Units: K/mm3; Status: F Test: MONO #; Value: 0.4; Range: 0.0-0.8; Units: K/mm3; Status: F Test: EOS #; Value: 0.0; Range: 0.0-0.50; Units: K/mm3; Status: F Test: BASO #; Value: 0.1; Range: 0.0-0.2; Units: K/mm3; Status: F Test: LARGE UNSTAINED CELL #; Value: 0.1; Range: 0.0-0.4; Units: K/mm3; Status: F Lab Order: BASIC METABOLIC PROFILE; SPEC'M 06/18/16 07:39 Test: GLUCOSE, FASTING; Value: 102; Range: 70-105; Units: MG/DL; Status: F Test: BLOOD UREA NITROGEN; Value: 5; Range: 7-18; Abnormal: Below low normal; Units: MG/DL; Status: F Test: CREATININE FOR GFR; Value: 0.59; Range: 0.55-1.02; Units: MG/DL; Status: F Test: GLOMERULAR FILTRATION RATE; Value: > 60.0; Range: >60; Status: F Test: SODIUM LEVEL; Value: 146; Range: 136-145; Abnormal: High; Units: MEQ/L; Status: F Test: POTASSIUM SERUM; Value: 3.9; Range: 3.5-5.1; Abnormal: Delta; Units: MEQ/L; Status: F Test: CHLORIDE LEVEL; Value: 112; Range: 98-107; Abnormal: Above high normal; Units: MEQ/L; Status: F Test: CARBON DIOXIDE LEVEL; Value: 25; Range: 21-32; Units: MEQ/L; Status: F Test: ANION GAP; Value: 9; Range: 8-16; Units: MEQ/L; Status: F Test: CALCIUM LEVEL; Value: 8.5; Range: 8.5-10.1; Units: MG/DL; Status: F Test Note: ; Units are mL/min/1.73 m2 Chronic Kidney Disease Staging per NKF: Stage I & II GFR >=60 Normal to Mildly Decreased Stage III GFR 30-59 Moderately Decreased Stage IV GFR 15-29 Severely Decreased Stage V GFR <15 Very Little GFR Left ESRD GFR <15 on TRACER 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 Lab Order: HIV 1&2 ANTIBODY SCREEN; SPEC'M 06/18/16 07:39 Test: HIV SCRN; Value: NEGATIVE; Range: NEGATIVE; Status: F Test: HIV SCRN1; Value: NEGATIVE; Range: NEGATIVE; Status: F Test Note: ; This assay was performed utilizing an immunochromatographic principle technique for the simultaneous & separate qualitative detection of free HIV-1 p24 antigen & antibodies to HIV-1 & HIV-2. The estimated sensitivity of this antigen/antibody combination assay for HIV-1 infection is 99.9%. The overall specificity is 99.6%. Lab Order: HEPATITIS PROFILE; SPEC'M 06/18/16 07:39 Test: HEPATITIS C VIRUS SERGEY INDEX; Range: <0.8; Units: INDEX; Status: I Test: HEPATITIS B SURFACE ANTIGEN; Range: NEGATIVE; Status: I Test: HEPATITIS B CORE ANTIBODY IGM; Range: NEGATIVE; Status: I Test: HEPATITIS A ANTIBODY IGM; Range: NEGATIVE; Status: I Lab Order: MAGNESIUM LEVEL; [facility] 06/17/16 18:43 Test: MAGNESIUM LEVEL; Value: 1.6; Range: 1.8-2.4; Abnormal: Below low normal; Units: MG/DL; Status: F Lab Order: DIFFERENTIAL; [facility] 06/17/16 18:43 Test: PLATELET ESTIMATE; Range: NORMAL; Status: I Test: NEUTROPHILS; Value: 87; Range: 35-75; Abnormal: Above high normal; Units: %; Status: F Test: BANDS; Value: 2; Range: < 11; Units: %; Status: F Test: LYMPHOCYTES; Value: 7; Range: 16-52; Abnormal: Below low normal; Units: %; Status: F Test: MONOCYTES; Value: 3; Range: 0-8; Units: %; Status: F Test: BASOPHILS; Value: 1; Range: 0-4; Units: %; Status: F Test: RBC MORPHOLOGY; Value: NORMAL; Status: F Test: PLATELET ESTIMATE; Value: NORMAL; Range: NORMAL; Status: F Lab Order: FREE T4; [facility] 06/17/16 18:43 Test: FREE T4; Value: 1.51; Range: 0.76-1.46; Abnormal: Above high normal; Units: NG/DL; Status: F Lab Order: MAGNESIUM LEVEL; [facility] 06/18/16 07:39 Test: MAGNESIUM LEVEL; Value: 2.0; Range: 1.8-2.4; Units: MG/DL; Status: F Lab Order: VANCOMYCIN LEVEL TROUGH; [facility] 06/18/16 14:57 Test: VANCOMYCIN LEVEL TROUGH; Value: 11.5; Range: 10.0-20.0; Units: UG/ML; Status: F Lab Order: BASIC METABOLIC PROFILE; [facility] 06/18/16 14:57 Test: GLUCOSE, FASTING; Value: 150; Range: 70-105; Abnormal: Above high normal; Units: MG/DL; Status: F Test: BLOOD UREA NITROGEN; Value: 5; Range: 7-18; Abnormal: Below low normal; Units: MG/DL; Status: F Test: CREATININE FOR GFR; Value: 0.77; Range: 0.55-1.02; Units: MG/DL; Status: F Test: GLOMERULAR FILTRATION RATE; Value: > 60.0; Range: >60; Status: F Test: SODIUM LEVEL; Value: 145; Range: 136-145; Units: MEQ/L; Status: F Test: POTASSIUM SERUM; Value: 3.1; Range: 3.5-5.1; Units: MEQ/L; Status: F Test: CHLORIDE LEVEL; Value: 110; Range: 98-107; Abnormal: Above high normal; Units: MEQ/L; Status: F Test: CARBON DIOXIDE LEVEL; Value: 23; Range: 21-32; Units: MEQ/L; Status: F Test: ANION GAP; Value: 12; Range: 8-16; Units: MEQ/L; Status: F Test: CALCIUM LEVEL; Value: 8.4; Range: 8.5-10.1; Abnormal: Below low normal; Units: MG/DL; Status: F Test Note: ; Units are mL/min/1.73 m2 Chronic Kidney Disease Staging per NKF: Stage I & II GFR >=60 Normal to Mildly Decreased Stage III GFR 30-59 Moderately Decreased Stage IV GFR 15-29 Severely Decreased Stage V GFR <15 Very Little GFR Left ESRD GFR <15 on TRACER 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 Radiology Order: EKG-ADULT Test: EKG-ADULT REASON FOR EXAMINATION: fever, sob; Stationary ECG Study; [facility] - ED; ; Test Date: 2016-06-17; Pat Name: MILY PAGAN Department:; Room: -; Gender: F 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 The heart is normal in size. The pulmonary vasculature is; normal in appearance.; ; Impression: No acute disease.; ; ; Signed by; Victor Manuel Ramirez MD 06/17/2016 07:20 P; Outcome: 19:23 Decision to Hospitalize by Provider. ml 22:00 Discharge Assessment: Patient awake, alert and oriented x 3. No cognitive and/or cf2 functional deficits noted. Patient verbalized understanding of disposition instructions. Patient awake and alert. Oriented to person, place and time. Patient verbalized understanding of disposition instructions. patient administered narcotics - no. The following High Risk Discharge criteria are identified: None. Admitted ER hold admission. Condition: stable. Property :Personal belongings accompany Pt. 06/18 00:53 No special radiology studies were completed. cf2 19:45 Discharge Assessment: Patient awake, alert and oriented x 3. No cognitive and/or nn1 functional deficits noted. Patient verbalized understanding of disposition instructions. Admitted to PCU accompanied by nurse, accompanied by tech, via stretcher, on monitor, with chart. Admission hand-off: Report called to Jessica Forrester RN. Property :Personal belongings accompany Pt. 19:56 Patient left the ED. nn1 Signatures: Dispatcher [employer] EDMS Ludwin Wiley MD MD ml Sleeman, Kacey, RN RN kcs Summer Chung, Building Performance Specialist Unit deg Barnhardt, Edith, Reg Reg gb Dee, Montez, PETROLEUM SUPPLY SPECIALIST PETROLEUM SUPPLY SPECIALIST [id number] Chyna Cooper, PETROLEUM SUPPLY SPECIALIST PETROLEUM SUPPLY SPECIALIST carol Baltazar Albarran js11 Amirah Vizcaino, PETROLEUM SUPPLY SPECIALIST PETROLEUM SUPPLY SPECIALIST tmm1 Bryce Stoddard, PETROLEUM SUPPLY SPECIALIST PETROLEUM SUPPLY SPECIALIST jlf Petra Muhammad, Building Performance Specialist Unit [facility] Kianna RodriguezRN RN js15 Yolande Hong,RN RN nn1 Amalia Duran,YNES RN kc3 Samantha Costello Kim, RN RN kas2 Paty Martinez,RN RN cf2 Corrections: (The following items were deleted from the chart) 06/17 18:15 17:59 BP 116 / 57; Pulse 104bpm; Resp 20bpm; Pulse Ox 92%; Temp 103.1F Oral; 58.97 kg; jlf Height 5 ft. 7 in.; BMI: 20.3; Pain 10/10; jlf 19:39 19:36 C REACTIVE PROTEIN QUANTITATIV+LAB sent. js15 EDMS MTDD
--- NOTE | 2016-06-18 19:57 | EDDOCDS ---
Physician Documentation [facility] Name: Mily Howell Age: 20 yrs Sex: Female : 1995 Arrival Date: 06/17/2016 Time: 17:48 Bed Admit Hold Private MD: Disposition: 06/17/16 19:23 Hospitalization ordered by Jasson Guthrie for Inpatient Admission. Preliminary diagnosis are Fever, unspecified - rule out endocarditis; heart murmur, Poisoning by unspecified drugs, medicaments and biological substances, accidental (unintentional) - heroine overdose, Hypoxemia. - Bed requested for PCU. - Status is Inpatient Admission. nn1 - Condition is Stable. - Problem is new. - Symptoms are unchanged. Historical: - Allergies: No known drug Allergies; - Home Meds: 1. none - PMHx: Anxiety; back pain; Depression; opiate dependency; - PSHx: none; - Social history: Smoking status: Patient uses tobacco products, light tobacco smoker. No barriers to communication noted, The patient speaks fluent Yoruba, Patient uses street drugs, heroin. - Family history: Not pertinent. - : The pt / caregiver states he / she is not on anticoagulants. Home medication list is obtained from family members. - Exposure Risk Screening:: None identified. 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 7 in. (170.18 cm); Pain 10/10; 18:08 BP 107 / 55 (auto/); kc3 18:10 Pulse 112 MON; Pulse Ox 92% ; kc3 18:30 BP 110 / 65 (auto/); kc3 18:30 Pulse 100 MON; Pulse Ox 95% ; kc3 19:07 BP 112 / 63 (auto/); kc3 19:07 Pulse 108 MON; Pulse Ox 94% ; kc3 19:29 Pulse 79 MON; Pulse Ox 98% ; js15 19:30 BP 141 / 71 (auto/); js15 20:00 BP 123 / 84 (auto/); js15 20:00 Pulse 81 MON; Pulse Ox 99% ; js15 21:00 Temp 96.9(O); js15 21:26 Pulse 62 MON; Pulse Ox 99% ; js15 21:27 BP 131 / 58 (auto/); js15 21:30 BP 125 / 63 (auto/); js15 21:30 Pulse 61 MON; Pulse Ox 99% ; js15 21:44 Pulse 55 MON; Pulse Ox 100% ; js15 21:45 BP 132 / 69 (auto/); js15 22:00 Pulse Ox 100% ; cf2 22:00 BP 129 / 80 (auto/); cf2 22:12 Pulse 62 MON; Pulse Ox 100% ; js15 22:15 BP 129 / 66 (auto/); js15 22:29 Pulse 53 MON; Pulse Ox 99% ; js15 22:30 BP 133 / 76 (auto/); js15 22:44 Pulse 53 MON; Pulse Ox 99% ; js15 22:45 BP 125 / 72 (auto/); js15 23:00 BP 132 / 80 (auto/); js15 23:00 Pulse 69 MON; Pulse Ox 97% ; js15 23:15 BP 137 / 80 (auto/); js15 23:15 Pulse 62 MON; Pulse Ox 97% ; js15 23:29 Pulse 62 MON; Pulse Ox 97% ; js15 23:30 BP 144 / 88 (auto/); js15 23:44 Pulse 69 MON; Pulse Ox 97% ; js15 23:45 BP 144 / 90 (auto/); 15 06/18 00:00 Pulse 58 MON; Pulse Ox 100% ; cf2 00:00 BP 170 / 129 (auto/); cf2 00:15 Pulse 58 MON; Pulse Ox 99% ; cf2 00:15 BP 168 / 106 (auto/); cf2 00:24 Pulse 74 MON; Pulse Ox 97% ; cf2 00:28 Pulse 64 MON; Pulse Ox 96% ; cf2 00:30 Pulse 62 MON; Pulse Ox 100% ; cf2 00:33 Pulse 56 MON; Pulse Ox 98% ; cf2 00:37 Pulse 60 MON; Pulse Ox 99% ; cf2 00:44 Pulse 62 MON; Pulse Ox 99% ; cf2 19:51 BP 132 / 82; Pulse 54; Resp 18; Temp 96.6(O); Pulse Ox 95% on R/A; 06/17 17:59 Body Mass Index 20.36 (58.97 kg, 170.18 cm) [facility] MDM: 06/17 18:14 Consult PFS/PSA/Negotiations Director ordered. ml 18:14 Consult PFS/PSA/Negotiations Director: Patient's case requires discussion with on-call ml Psychiatrist ordered. 18:14 PSA/PFS to call Nursing Alterations Expert, to enter patient data on [place] Safe Act if patient ml involuntarily admitted or transferred for SI or HI ordered. 18:14 Sounding Device Operator/Pulse Ox/q 15 min VS ordered. ml 18:14 Confirm accurate psychiatric medication list and times of last dosage ordered. ml 18:14 Detain Pt Until Medically/PFS Cleared ordered. ml 18:14 IV Saline Lock ordered. ml 18:14 Rhythm Strip to chart ordered. ml 18:14 Oxygen at 4L/Min NC or Home dosage ordered. ml 18:14 Solu-MEDROL 125 mg IVP once ordered. ml 18:14 Albuterol 5 mg Nebulizer once ordered. ml 18:14 Albuterol-Ipratropium 3 ml Inhalation once ordered. ml 18:14 Call Respiratory ordered. ml 18:14 Call Respiratory ordered. ml 18:14 Acetaminophen Tablet 650 mg PO once ordered. ml 18:15 -Blood Culture (Adults Only), peripheral from different site, or from device/port/PICC ml etc. if present ordered. 18:15 -Arterial Blood Gas Ordered. EDMS 18:15 Acetaminophen Level Ordered. EDMS 18:15 Basic Metabolic Profile Ordered. EDMS 18:15 Complete Blood Count Ordered. EDMS 18:15 Drug Eval Toxicology ED Only Ordered. EDMS 18:15 Ethyl Alcohol (ethanol) Ordered. EDMS 18:15 HCG,Serum Qualitative Ordered. EDMS 18:15 Liver Profile Ordered. EDMS 18:15 Salicylate Level Ordered. EDMS 18:15 Thyroid Stimulating Hormone Ordered. EDMS 18:15 Call Respiratory complete. deg 18:16 Call Respiratory complete. deg 18:16 Lactic Acid (Woody tube on ice) Ordered. EDMS 18:16 NS 0.9% 1000 ml IV at bolus once ordered. ml 18:16 -Blood Culture Ordered. EDMS 18:16 Chest, 1 View Ordered. EDMS 18:16 ECG WITH READING ER PHYS+CARDIAG ordered. EDMS 18:22 -Blood Culture (Adults Only), peripheral from different site, or from device/port/PICC deg etc. if present complete. 18:23 BLOOD CULTURES Ordered. EDMS 18:26 UA Ordered. EDMS 18:26 Urine Culture Ordered. EDMS 18:39 NS 0.9% 1000 ml IV at bolus once ordered. ml 18:41 [facility] Production Lapping Machine Operator Order ordered. ml 18:43 BED REQUEST+ADM ordered. EDMS 18:45 [facility] Production Lapping Machine Operator Order complete. tmm1 18:46 BLOOD CULTURES Ordered. EDMS 18:46 BLOOD CULTURES Ordered. EDMS 19:12 Obtain sample by nasopharyngeal swab ordered. ml 19:13 -Influenza A&B Rapid Antigen - Nose Ordered. EDMS 19:13 Mis. Nursing Order ordered. ml 19:13 cefTRIAXone 2 grams IVPB once over 30 mins; dilute in 50mL of NS or D5W ordered. ml 19:14 vancomycin (loading dose for pt. wt. 40-49kg) 1000 mg IVPB once ordered. ml 19:14 ESR Ordered. EDMS 19:34 Consult PFS/PSA/Negotiations Director complete. cl 19:34 Consult PFS/PSA/Negotiations Director: Patient's case requires discussion with on-call cl Psychiatrist complete. 19:34 PSA/PFS to call Nursing Alterations Expert, to enter patient data on [place] Safe Act if patient cl involuntarily admitted or transferred for SI or HI complete. 19:59 Admission / Observation Status ordered. EDMS 19:59 ECHOCARD,DOPPLER/COLOR FLOW ordered. EDMS 20:00 OTHER CUSTOM DIETS ordered. EDMS 20:00 C REACTIVE PROTEIN QUANTITATIV Ordered. EDMS 20:01 ERYTHROCYTE SEDIMENTATION RATE Ordered. EDMS 20:01 CBC WITH DIFFERENTIAL Ordered. EDMS 20:01 BASIC METABOLIC PROFILE Ordered. EDMS 20:01 HIV 1&2 ANTIBODY SCREEN Ordered. EDMS 20:01 HEPATITIS PROFILE Ordered. EDMS 20:01 RESPIRATORY PANEL Ordered. EDMS 20:13 SPUTUM CULTURE AND GRAM STAIN Ordered. EDMS 20:31 -Arterial Blood Gas Reviewed. ml 20:31 Acetaminophen Level Reviewed. ml 20:31 Basic Metabolic Profile Reviewed. ml 20:31 Complete Blood Count Reviewed. ml 20:31 Drug Eval Toxicology ED Only Reviewed. ml 20:31 Liver Profile Reviewed. ml 20:31 Salicylate Level Reviewed. ml 20:31 Thyroid Stimulating Hormone Reviewed. ml 20:31 UA Reviewed. ml 20:31 ESR Reviewed. ml 20:31 C REACTIVE PROTEIN QUANTITATIV Reviewed. ml 20:31 MAGNESIUM LEVEL Reviewed. ml 20:31 Ethyl Alcohol (ethanol) Reviewed. ml 20:31 HCG,Serum Qualitative Reviewed. ml 20:31 Lactic Acid (Woody tube on ice) Reviewed. ml 20:31 -Influenza A&B Rapid Antigen - Nose Reviewed. ml 20:31 Chest, 1 View Reviewed. ml 20:31 MANUAL DIFFFERENTIAL Ordered. EDMS 20:44 [facility] Payment Agreement was scanned into [employer] and attached to record. b 20:44 Financial registration complete. gjb 22:21 MAGNESIUM LEVEL Ordered. EDMS 06/18 01:32 VANCOMYCIN LEVEL TROUGH Ordered. EDMS 09:34 T-Sheet-- Draft Copy was scanned into [employer] and attached to record. gb 12:14 REGULAR DIET ordered. EDMS 14:16 BASIC METABOLIC PROFILE Ordered. EDMS 18:12 RESPIRATORY PANEL Ordered. EDMS 19:32 CBC WITH DIFFERENTIAL Ordered. EDMS 19:32 BASIC METABOLIC PROFILE Ordered. EDMS 19:34 C REACTIVE PROTEIN QUANTITATIV Ordered. EDMS 19:34 ERYTHROCYTE SEDIMENTATION RATE Ordered. EDMS Administered Medications: 06/17 18:41 Drug: Albuterol 5 mg [albuterol sulfate 2.5 mg/0.5 mL solution for nebulization (1 mL)] js11 Route: Nebulizer; 18:41 Drug: Albuterol-Ipratropium 3 ml [ipratropium-albuterol 0.5 mg-3 mg(2.5 mg base)/3 mL js11 nebulization soln (3 mL)] Route: Inhalation; 18:50 Drug: Acetaminophen 650 mg [acetaminophen 325 mg tablet (2 tabs)] Route: PO; kc3 21:00 Follow up: Temp 96.9 Oral; Response: Temperature is decreased js15 19:00 Drug: NS 0.9% 1000 ml [sodium chloride 0.9 % intravenous solution] Route: IV; Rate: js15 bolus; Site: right jugular; 21:30 Follow up: IV Status: Completed infusion; IV Intake: 1000ml js15 19:01 Drug: Solu-MEDROL 125 mg [Solu-Medrol 500 mg intravenous solution (125 mg)] Route: IVP; kc3 Site: right jugular; 21:25 Drug: cefTRIAXone 2 grams [ceftriaxone 1 gram solution for injection] Route: IVPB; js15 Infused Over: 30 mins; Site: right jugular; 21:30 Drug: NS 0.9% 1000 ml [sodium chloride 0.9 % intravenous solution] Route: IV; Rate: js15 bolus; Site: right jugular; 06/18 00:45 Drug: vancomycin (loading dose for pt. wt. 40-49kg) 1000 mg [vancomycin 500 mg cf2 intravenous solution] Route: IVPB; Site: left antecubital; Signatures: Dispatcher [employer] EDMS Ludwin Wiley MD MD ml Grace Rome, RN RN kcs Summer Chung, Distributor Of Directories Unit deg Theodore, Héctor, PSA PSA cl Barnhardt, Edith, Reg Reg gb McLear, Amirah, SUPPLIES PACKER SUPPLIES PACKER tmm1 Michelle Sorensen, RN RN sls2 Yolande HongRN RN nn1 Samantha Costello Christina,RN RN cf2 Baltazar Albarran js11 Kianna Rodriguez RN js15 Amalia Duran RN kc3 The chart was reviewed and I authenticate all verbal orders and agree with the evaluation and treatment provided.Corrections: (The following items were deleted from the chart) 06/17 18:16 18:15 ARTERIAL BLOOD GAS+LAB ordered. EDMS EDMS 19:39 19:14 C REACTIVE PROTEIN QUANTITATIV+LAB ordered. EDMS EDMS 19:42 18:39 Straight cath ordered. ml js15 20:12 20:00 MAGNESIUM LEVEL ordered. EDMS EDMS 20:28 20:12 DIFFERENTIAL ordered. EDMS EDMS 21:11 20:12 FREE T4 ordered. EDMS EDMS 22:20 20:01 MAGNESIUM LEVEL ordered. EDMS EDMS 06/18 14:16 08:32 BASIC METABOLIC PROFILE ordered. EDMS EDMS Attachments: 06/17 20:44 [facility] Payment Agreement gjb 06/18 09:34 T-Sheet-- Draft Copy gb MTDD
[2016-06-18 20:55] VITALS: BP 114/55
[2016-06-18] MEDS: cefTRIAXone SOD 2 GM in D5W MINI-BAG PLUS 50 ML IV SCH (22:23)
[2016-06-18] MEDS ORDERED: SLF 3 ML SYR IV PRN (22:45)
[2016-06-18 23:59] VITALS: BP 120/69
[2016-06-19] MEDS: VANCOMYCIN HCL 1,000 MG, VIAL MATE ADAPTER 1 EACH in D5W 250 ML IV SCH ×3 (00:57→16:23)
[2016-06-19 04:00] VITALS: BP 135/83
[2016-06-19] MEDS: SLF 3 ML SYR IV SCH ×3 (05:58→22:17)
[2016-06-19] MEDS: KETOROLAC 30 MG/ML VIAL (J1885) IV PRN ×3 (05:58→21:45)
[2016-06-19 06:25] LABS: BASO % 0.1 % (0.0-1.0); EOS % 0.1 % (0.0-3.0); LARGE UNSTAINED CELL # 0.2 K/mm3 (0.0-0.4); LARGE UNSTAINED CELL % 0.9 % (0.0-4.0); LYMPH # 2.4 K/mm3 (1.5-6.5); LYMPH % 13.2 % (24.0-44.0); MEAN CORPUSCULAR HEMOGLOBIN 27.6 pg (27.0-33.0); MEAN CORPUSCULAR HGB CONC 32.6 g/dl (32.0-36.5); MEAN CORPUSCULAR VOLUME 84.5 fl (80.0-96.0); MONO # 0.6 K/mm3 (0.0-0.8); MONO % 3.4 % (0.0-5.0); NEUTROPHILS # 14.7 K/mm3 (1.8-7.7); NEUTROPHILS % 82.4 % (36.0-66.0); PLATELET COUNT, AUTOMATED 195 k/mm3 (150-450); RED CELL DISTRIBUTION WIDTH 13.2 % (11.5-14.5); WHITE BLOOD COUNT 17.9 K/mm3 (4.0-10.0)
[2016-06-19 06:40] LABS: ANION GAP 9 MEQ/L (8-16); BLOOD UREA NITROGEN 6 MG/DL (7-18); CALCIUM LEVEL 8.4 MG/DL (8.5-10.1); CARBON DIOXIDE LEVEL 25 MEQ/L (21-32); CHLORIDE LEVEL 111 MEQ/L (98-107); CREATININE FOR GFR 0.73 MG/DL (0.55-1.02); GLOMERULAR FILTRATION RATE > 60.0 (>60); GLUCOSE, FASTING 84 MG/DL (70-105); POTASSIUM SERUM 3.9 MEQ/L (3.5-5.1); SODIUM LEVEL 145 MEQ/L (136-145)
[2016-06-19 06:51] LABS: ERYTHROCYTE SEDIMENTATION RATE 40 mm/hr (0-20)
[2016-06-19] MEDS: IPRATROPIUM 0.5MG/ALBUTEROL 2.5MG INH SOL UD 3ML (DUONEB)(J7620) NEB SCH ×4 (07:24→20:00)
[2016-06-19 08:00] VITALS: BP 112/67
[2016-06-19] MEDS: METHADONE 10 MG TAB (S0109) PO SCH ×3 (09:16→20:28)
[2016-06-19] MEDS: SENOKOT S TAB PO SCH ×2 (09:16→20:27)
[2016-06-19] MEDS: NICOTINE 14 MG/24 HR TRANSDERMAL TD SCH (09:17)
[2016-06-19] MEDS: ENOXAPARIN 40 MG/0.4 ML SYRINGE (J1650) SC SCH (09:17)
[2016-06-19] MEDS ORDERED: MOM 30ML SUSPENSION UDC PO PRN (10:30)
--- NOTE | 2016-06-19 11:27 | PHACANCOPD ---
PHARMACY VANCOMYCIN DOSING Pt Demographics Demographics Patient Age:20 , Weight:74.900 , Gender: female Adjusted Body Weight Date: 06/18/16, Adjusted Body Weight: [58.97] Kg(ACTUAL WT) Vancomycin Vancomycin Target Ranges: 15-20 mcg/ml Vancomycin Load Y/N: No Load Dose Date Time Vancomycin Load Dose: Date: Time: Vancomycin Dose Date: 06/18/16. Current Vancomycin Dose: [1 gm iv Q8H] Intermittent Dosing?: No Labs Micro Microbiology 06/17/16 Blood Culture - Preliminary, Resulted No growth after 24 hours . All specim... 06/17/16 Blood Culture - Preliminary, Resulted No growth after 24 hours . All specim... 06/17/16 Blood Culture - Preliminary, Resulted No growth after 24 hours . All specim... 06/17/16 Influenza Virus Type A Antigen - Final, Complete 06/17/16 Influenza Virus Type B Antigen - Final, Complete 06/17/16 Urine Culture - Final, Complete Creatinine Clearance Date:06/18/16. Creatinine Clearance: [86.9]CALCULATED. Pending Labs VANCO TROUGH ORDERED FOR 06/18@1500 Assessment and Plan Maintaining Current Dose?: Yes Reason for dose change: Change in serum Cr, No Dose Change Pharmacist Note Pharmacist Note 06/19/16: I have scheduled a follow-up trough to be drawn 06/20/16 @ 0700. Scr and ouput remain stable. We will continue to monitor and make further dose adjustments as needed. Date: 06/18/16. Pharmacist note:NEW ADMISSION W/Vancomycin consult to treat pneumonia(Azithromycin 500mg IV Q24H,Ceftriaxone 2 GM Q24H and Vancomycin ordered).Patient CRCL calculated as 86.9>Will begin w/Vancomycin 1 GM IV Q8H- draw trough @ 1500 on 06/18 .Will continue to monitor SCr and levels. EMEKA SEBASTIAN PHARMACY Jun 19, 2016 11:27
--- NOTE | 2016-06-19 11:43 | IPNPDOC ---
Assessment/Plan Date Seen The patient was seen on 06/19/16. Plan / VTE VTE Prophylaxis Ordered?: Yes Plan Plan Text Viral Upper respiratory tract infection versus early pneumonia Chest x-ray with no acute findings noted Respiratory panel pending Continue with ceftriaxone, Zithromax Blood cultures negative thus far Transthoracic echo with no obvious vegetations noted Patient's respiratory status improved since admission Leukocytosis Likely secondary to above Downward trending from 29-20K-->17K this morning Blood cultures unrevealing thus far Patient has been afebrile today We will continue to monitor her white blood cell count Hepatitis C Infection Patient noted to have a positive Hepatitis C Ab test HCV RNA level pending Will follow up Opiate dependence I discussed extensively the need for the patient abstain from drug abuse as her toxicology screen was positive for cannabinoids, cocaine, and opiates We Have offered her help regarding getting into a rehabilitation facility-[facility] Continue methadone Hypokalemia Repleted Tobacco use. Continue nicotine patch. Subjective Review of Systems CC/HPI The patient is a 20-year-old female admitted with a reason for visit of Pneumonia. General: Denies: Chills, Night Sweats Constitutional: Denies: Chills, Fever Eyes: Denies: Pain, Vision change ENT: Denies: Ear Pain, Head Aches Pulmonary: Denies: Dyspnea Gastrointestinal: Denies: Abdominal Pain, Nausea, Vomiting Hematologic: Denies: Bleeding Excessively, Bruising Objective Physical Examination General Exam: Positive: Alert, Cooperative, No Acute Distress ENT Exam: Positive: Atraumatic, Mucous membr. moist/pink Neck Exam: Negative: JVD Chest Exam: Positive: Clear to auscultation, Negative: Rales, Rhonchi, Wheezing Heart Exam: Positive: Normal S1, Normal S2, Rate Normal Abdomen Exam: Positive: Soft, Negative: Tenderness Extremity Exam: Negative: Edema, Tenderness Vital Signs/I&O Vital Signs Date Time Temp Pulse Resp B/P Pulse Ox O2 Delivery O2 Flow Rate FiO2 06/19/16 09:16 18 06/19/16 08:07 Room Air 06/19/16 08:00 96.2 67 112/67 94 I&O- Last 24 Hours up to 6 AM 06/19/16 06:00 Intake Total 2535 ml Output Total 1250 ml Balance 1285 ml Laboratory Data Labs 24H Laboratory Tests 2 06/18/16 14:57: Anion Gap 12, Blood Urea Nitrogen 5L, Creatinine 0.77, Sodium Level 145, Potassium Level 3.1#L, Chloride Level 110H, Carbon Dioxide Level 23, Calcium Level 8.4L, Glomerular Filtration Rate > 60.0, Vancomycin Level Trough 11.5 06/19/16 05:51: Anion Gap 9, Blood Urea Nitrogen 6L, Creatinine 0.73, Sodium Level 145, Potassium Level 3.9#, Chloride Level 111H, Carbon Dioxide Level 25, Calcium Level 8.4L, Glomerular Filtration Rate > 60.0, White Blood Count 17.9H, Red Blood Count 3.92L, Hemoglobin 10.8L, Hematocrit 33.1L, Mean Corpuscular Volume 84.5, Mean Corpuscular Hemoglobin 27.6, Mean Corpuscular Hemoglobin Concent 32.6 , Red Cell Distribution Width 13.2, Platelet Count 195, Neutrophils (%) (Auto) 82.4H, Lymphocytes (%) (Auto) 13.2L, Monocytes (%) (Auto) 3.4, Eosinophils (%) ( Auto) 0.1, Basophils (%) (Auto) 0.1, Neutrophils # (Auto) 14.7H, Lymphocytes # ( Auto) 2.4, Monocytes # (Auto) 0.6, Eosinophils # (Auto) 0.0, Basophils # (Auto) 0.0, C-Reactive Protein, Quantitative 6.11H, Erythrocyte Sedimentation Rate 40H , Large Unclassified Cells # 0.2, Large Unclassified Cells % 0.9 CBC/BMP Laboratory Tests 06/18/16 14:57 Calcium Level 8.4 L 06/19/16 05:51 Calcium Level 8.4 L, Red Blood Count 3.92 L, Mean Corpuscular Volume 84.5, Mean Corpuscular Hemoglobin 27.6, Mean Corpuscular Hemoglobin Concent 32.6, Red Cell Distribution Width 13.2, Neutrophils (%) (Auto) 82.4 H, Lymphocytes (%) (Auto) 13.2 L, Monocytes (%) (Auto) 3.4, Eosinophils (%) (Auto) 0.1, Basophils (%) ( Auto) 0.1, Neutrophils # (Auto) 14.7 H, Lymphocytes # (Auto) 2.4, Monocytes # ( Auto) 0.6, Eosinophils # (Auto) 0.0, Basophils # (Auto) 0.0 Microbiology Microbiology 06/17/16 Blood Culture - Preliminary, Resulted No growth after 24 hours . All specim... 06/17/16 Blood Culture - Preliminary, Resulted No growth after 24 hours . All specim... 06/17/16 Blood Culture - Preliminary, Resulted No growth after 24 hours . All specim... 06/17/16 Influenza Virus Type A Antigen - Final, Complete 06/17/16 Influenza Virus Type B Antigen - Final, Complete 06/17/16 Urine Culture - Final, Complete IGNACIO TOBAR MD Jun 19, 2016 11:42
[2016-06-19 12:00] VITALS: BP 128/76
[2016-06-19] MEDS: ACETAMINOPHEN TAB 650MG DOSE (2X325MG) PO PRN ×2 (12:26→16:24)
[2016-06-19 14:35] VITALS: BP 138/72
[2016-06-19 22:00] VITALS: BP 138/87
[2016-06-19] MEDS: cefTRIAXone SOD 2 GM in D5W MINI-BAG PLUS 50 ML IV SCH (22:17)
[2016-06-19] MEDS: AZITHROMYCIN INJ 500 MG, VIAL MATE ADAPTER 1 EACH in D5W 250 ML IV SCH (22:17)
[2016-06-20] MEDS: VANCOMYCIN HCL 1,000 MG, VIAL MATE ADAPTER 1 EACH in D5W 250 ML IV SCH ×2 (00:19→08:41)
[2016-06-20 06:00] VITALS: BP 140/84
[2016-06-20] MEDS: SLF 3 ML SYR IV SCH ×3 (06:01→21:31)
[2016-06-20] MEDS: IPRATROPIUM 0.5MG/ALBUTEROL 2.5MG INH SOL UD 3ML (DUONEB)(J7620) NEB SCH ×4 (07:04→19:20)
[2016-06-20 08:18] LABS: BASO # 0.1 K/mm3 (0.0-0.2); BASO % 1.1 % (0.0-1.0); EOS # 0.1 K/mm3 (0.0-0.50); EOS % 1.3 % (0.0-3.0); LARGE UNSTAINED CELL # 0.1 K/mm3 (0.0-0.4); LARGE UNSTAINED CELL % 1.1 % (0.0-4.0); LYMPH # 2.1 K/mm3 (1.5-6.5); LYMPH % 18.6 % (24.0-44.0); MEAN CORPUSCULAR HEMOGLOBIN 27.1 pg (27.0-33.0); MEAN CORPUSCULAR HGB CONC 32.4 g/dl (32.0-36.5); MEAN CORPUSCULAR VOLUME 83.7 fl (80.0-96.0); MONO # 0.5 K/mm3 (0.0-0.8); MONO % 4.3 % (0.0-5.0); NEUTROPHILS # 7.9 K/mm3 (1.8-7.7); NEUTROPHILS % 73.6 % (36.0-66.0); PLATELET COUNT, AUTOMATED 199 k/mm3 (150-450); RED CELL DISTRIBUTION WIDTH 14.2 % (11.5-14.5); WHITE BLOOD COUNT 10.7 K/mm3 (4.0-10.0)
[2016-06-20 08:35] LABS: ANION GAP 9 MEQ/L (8-16); BLOOD UREA NITROGEN 4 MG/DL (7-18); CALCIUM LEVEL 8.9 MG/DL (8.5-10.1); CARBON DIOXIDE LEVEL 29 MEQ/L (21-32); CHLORIDE LEVEL 101 MEQ/L (98-107); CREATININE FOR GFR 0.79 MG/DL (0.55-1.02); GLOMERULAR FILTRATION RATE > 60.0 (>60); GLUCOSE, FASTING 90 MG/DL (70-105); POTASSIUM SERUM 3.9 MEQ/L (3.5-5.1); SODIUM LEVEL 139 MEQ/L (136-145)
[2016-06-20] MEDS: KETOROLAC 30 MG/ML VIAL (J1885) IV PRN ×2 (08:40→16:19)
[2016-06-20] MEDS: NICOTINE 14 MG/24 HR TRANSDERMAL TD SCH (08:41)
[2016-06-20] MEDS: SENOKOT S TAB PO SCH ×2 (08:41→20:50)
[2016-06-20] MEDS: METHADONE 10 MG TAB (S0109) PO SCH ×3 (08:41→20:50)
[2016-06-20] MEDS: ENOXAPARIN 40 MG/0.4 ML SYRINGE (J1650) SC SCH (08:42)
--- NOTE | 2016-06-20 11:28 | IPNPDOC ---
Assessment/Plan Date Seen The patient was seen on 06/20/16. Plan / VTE VTE Prophylaxis Ordered?: Yes Plan Plan Text Viral Upper respiratory tract infection versus Pneumonia Chest x-ray with no acute findings noted Respiratory panel negative Continue with ceftriaxone, Zithromax Transthoracic echo with no obvious vegetations noted Patient is complaining of some pleuritic chest pain this morning, we will order a CTA to r/o PE ?Bacteremia 1 Bottle Preliminarily Positive for Gram Positive Rods 2 Previous Blood Cultures negative Possibly a contaminant--No obvious source of infection identified at this time, patient is afebrile with downward trending WBC Will repeat BC x 2 Patient already covered with Vancomycin Will continue to monitor Leukocytosis Likely secondary to above Downward trending from 29-20K-->17K-->10K this morning Patient has been afebrile today We will continue to monitor her white blood cell count Hepatitis C Infection Patient noted to have a positive Hepatitis C Ab test on this admission However, upon looking back on previous lab studies--it appears that the patient is already noted to have Hepatitis C Patient asked today about this---she states that she has been following up with Dr. Osuna as an outpatient for this. Advised to continue to do so Opiate dependence I discussed extensively the need for the patient abstain from drug abuse as her toxicology screen was positive for cannabinoids, cocaine, and opiates We Have offered her help regarding getting into a rehabilitation facility-she states that she is on the waiting list for [facility] Continue methadone Accidental Overdose Patient states that she had been feeling sick from a viral infection and was still taking IV Heroin despite not feeling well, she reports that she has been abusing drugs for years She became more lethargic and was brought to the ER for evaluation The patient denies any intent to harm herself or others, she denies any depressive symptoms, she denies any history of suicidal attempts or thoughts in the past, and she denies any stressors in her life at this time Her boyfriend was next to her when the incident occurred and he reports that it was not an intentional episode, and his story also corroborates with the patient 's The patient reports that she is scheduled to follow up at [facility] for enrollment into a Methadone program I did discuss the case with Dr. Valenzuela of Psychiatry and he agrees that there is no need for involuntary inpatient psych commitment at this time given the patient's presentation noted above Hypokalemia Repleted Tobacco use. Continue nicotine patch. Subjective Review of Systems CC/HPI The patient is a 20-year-old female admitted with a reason for visit of Pneumonia. General: Denies: Chills, Night Sweats Constitutional: Denies: Chills, Fever Eyes: Denies: Pain, Vision change ENT: Denies: Ear Pain, Head Aches Skin: Denies: Lesions, Rash Pulmonary: Denies: Cough, Dyspnea Cardiovascular: Denies: Chest Pain, Palpitations Gastrointestinal: Denies: Nausea, Vomiting Genitourinary: Denies: Dysuria, Frequency Hematologic: Denies: Bleeding Excessively, Bruising Objective Physical Examination General Exam: Positive: Alert, Cooperative, No Acute Distress ENT Exam: Positive: Atraumatic, Mucous membr. moist/pink Neck Exam: Negative: JVD Chest Exam: Positive: Clear to auscultation, Negative: Rales, Rhonchi, Wheezing Heart Exam: Positive: Normal S1, Normal S2, Rate Normal Abdomen Exam: Positive: Soft, Negative: Tenderness Extremity Exam: Negative: Edema, Tenderness Vital Signs/I&O Vital Signs Date Time Temp Pulse Resp B/P Pulse Ox O2 Delivery O2 Flow Rate FiO2 06/20/16 09:00 Room Air 06/20/16 08:41 20 06/20/16 06:00 98.9 71 140/84 91 I&O- Last 24 Hours up to 6 AM 06/20/16 06:00 Intake Total 2045 ml Output Total 2475 ml Balance -430 ml Laboratory Data Labs 24H Laboratory Tests 2 06/20/16 08:00: Anion Gap 9, White Blood Count 10.7H, Red Blood Count 4.70, Hemoglobin 12.7, Hematocrit 39.4, Mean Corpuscular Volume 83.7, Mean Corpuscular Hemoglobin 27.1 , Mean Corpuscular Hemoglobin Concent 32.4, Red Cell Distribution Width 14.2, Platelet Count 199, Neutrophils (%) (Auto) 73.6H, Lymphocytes (%) (Auto) 18.6L, Monocytes (%) (Auto) 4.3, Eosinophils (%) (Auto) 1.3, Basophils (%) (Auto) 1.1H , Neutrophils # (Auto) 7.9H, Lymphocytes # (Auto) 2.1, Monocytes # (Auto) 0.5, Eosinophils # (Auto) 0.1, Basophils # (Auto) 0.1, C-Reactive Protein, Quantitative 10.10H, Blood Urea Nitrogen 4L, Creatinine 0.79, Sodium Level 139, Potassium Level 3.9, Chloride Level 101, Carbon Dioxide Level 29, Calcium Level 8.9, Glomerular Filtration Rate > 60.0, Large Unclassified Cells # 0.1, Large Unclassified Cells % 1.1, Vancomycin Level Trough 18.0 CBC/BMP Laboratory Tests 06/20/16 08:00 Calcium Level 8.9, Red Blood Count 4.70, Mean Corpuscular Volume 83.7, Mean Corpuscular Hemoglobin 27.1, Mean Corpuscular Hemoglobin Concent 32.4, Red Cell Distribution Width 14.2, Neutrophils (%) (Auto) 73.6 H, Lymphocytes (%) (Auto) 18.6 L, Monocytes (%) (Auto) 4.3, Eosinophils (%) (Auto) 1.3, Basophils (%) ( Auto) 1.1 H, Neutrophils # (Auto) 7.9 H, Lymphocytes # (Auto) 2.1, Monocytes # ( Auto) 0.5, Eosinophils # (Auto) 0.1, Basophils # (Auto) 0.1 Microbiology Microbiology 06/19/16 Blood Culture, Received Pending 06/19/16 Blood Culture, Received Pending 06/17/16 Blood Culture - Preliminary, Resulted 06/17/16 Blood Culture - Preliminary, Resulted No Growth after 48 hours. All Specime... 06/17/16 Blood Culture - Preliminary, Resulted No Growth after 48 hours. All Specime... 06/19/16 Respiratory Virus Panel (PCR) ([facility]) - Final, Complete 06/17/16 Influenza Virus Type A Antigen - Final, Complete 06/17/16 Influenza Virus Type B Antigen - Final, Complete 06/17/16 Urine Culture - Final, Complete IGNACIO TOBAR MD Jun 20, 2016 11:28
[2016-06-20] MEDS ORDERED: ISOVUE-370 76% 100ML VIAL (Q9967) As Ordered ONE (11:48)
[2016-06-20] MEDS: ACETAMINOPHEN TAB 650MG DOSE (2X325MG) PO PRN ×2 (12:34→20:51)
--- NOTE | 2016-06-20 12:51 | REP ---
CT pulmonary angiogram: With IV contrast. History: Shortness of breath. Question pulmonary embolism. Comparison studies: Comparison chest x-ray June 17, 2016. Contrast dose: 75 cc's of Isovue [address] technique: Helical scanning is acquired and overlapping 1.5 mm and contiguous 3 mm axial images are reformatted. In addition, a 3-D work station is deployed to generate thick slab maximum intensity projection images in sagittal and coronal imaging projections. CT pulmonary angiographic findings: There is good opacification of the pulmonary arterial tree. There is no CT evidence of pulmonary embolism. Maximum intensity projection images show no filling defect or vessel cutoff. The thoracic aorta is normal in coarse, contour, and homogeneous in contrast enhancement. No evidence of dissection or aneurysm seen. There is no evidence of pericardial effusion. There is a small quantity of left pleural fluid. There is a large infiltrate in the left lower lobe with some partial atelectasis in the basilar segments of the left lower lobe. Discoid atelectasis is seen in the right lower lobe as well. The infiltrate in the left lower lobe extends to the superior segment and is compatible with pneumonia. Visualized upper abdominal structures are unremarkable. No bony destructive lesion is seen. Impression: Large dense infiltrate left lower lobe consistent with pneumonia. Small left pleural effusion. No CT evidence of pulmonary embolism. Otherwise unremarkable. Signed by Paresh Ellington MD 06/20/2016 02:59 P
[2016-06-20 14:00] VITALS: BP 124/78
[2016-06-20] MEDS: AZITHROMYCIN 250 MG TAB PO SCH (14:38)
[2016-06-20 20:35] VITALS: BP 121/82
[2016-06-20] MEDS: cefTRIAXone SOD 2 GM in D5W MINI-BAG PLUS 50 ML IV SCH (20:50)
--- NOTE | 2016-06-20 20:57 | EDDOCDS ---
Physician Documentation [facility] Name: Mily Howell Age: 20 yrs Sex: Female : 1995 Arrival Date: 06/17/2016 Time: 17:48 Bed Admit Hold Private MD: Disposition: 06/17/16 19:23 Hospitalization ordered by Jasson Guthrie for Inpatient Admission. Preliminary diagnosis are Fever, unspecified - rule out endocarditis; heart murmur, Poisoning by unspecified drugs, medicaments and biological substances, accidental (unintentional) - heroine overdose, Hypoxemia. - Bed requested for PCU. - Status is Inpatient Admission. nn1 - Condition is Stable. - Problem is new. - Symptoms are unchanged. Historical: - Allergies: No known drug Allergies; - Home Meds: 1. none - PMHx: Anxiety; back pain; Depression; opiate dependency; - PSHx: none; - Social history: Smoking status: Patient uses tobacco products, light tobacco smoker. No barriers to communication noted, The patient speaks fluent Welsh, Patient uses street drugs, heroin. - Family history: Not pertinent. - : The pt / caregiver states he / she is not on anticoagulants. Home medication list is obtained from family members. - Exposure Risk Screening:: None identified. 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 7 in. (170.18 cm); Pain 10/10; 18:08 BP 107 / 55 (auto/); kc3 18:10 Pulse 112 MON; Pulse Ox 92% ; kc3 18:30 BP 110 / 65 (auto/); kc3 18:30 Pulse 100 MON; Pulse Ox 95% ; kc3 19:07 BP 112 / 63 (auto/); kc3 19:07 Pulse 108 MON; Pulse Ox 94% ; kc3 19:29 Pulse 79 MON; Pulse Ox 98% ; js15 19:30 BP 141 / 71 (auto/); js15 20:00 BP 123 / 84 (auto/); js15 20:00 Pulse 81 MON; Pulse Ox 99% ; js15 21:00 Temp 96.9(O); js15 21:26 Pulse 62 MON; Pulse Ox 99% ; js15 21:27 BP 131 / 58 (auto/); js15 21:30 BP 125 / 63 (auto/); js15 21:30 Pulse 61 MON; Pulse Ox 99% ; js15 21:44 Pulse 55 MON; Pulse Ox 100% ; js15 21:45 BP 132 / 69 (auto/); js15 22:00 Pulse Ox 100% ; cf2 22:00 BP 129 / 80 (auto/); cf2 22:12 Pulse 62 MON; Pulse Ox 100% ; js15 22:15 BP 129 / 66 (auto/); js15 22:29 Pulse 53 MON; Pulse Ox 99% ; js15 22:30 BP 133 / 76 (auto/); js15 22:44 Pulse 53 MON; Pulse Ox 99% ; js15 22:45 BP 125 / 72 (auto/); js15 23:00 BP 132 / 80 (auto/); js15 23:00 Pulse 69 MON; Pulse Ox 97% ; js15 23:15 BP 137 / 80 (auto/); js15 23:15 Pulse 62 MON; Pulse Ox 97% ; js15 23:29 Pulse 62 MON; Pulse Ox 97% ; js15 23:30 BP 144 / 88 (auto/); js15 23:44 Pulse 69 MON; Pulse Ox 97% ; js15 23:45 BP 144 / 90 (auto/); 15 06/18 00:00 Pulse 58 MON; Pulse Ox 100% ; cf2 00:00 BP 170 / 129 (auto/); cf2 00:15 Pulse 58 MON; Pulse Ox 99% ; cf2 00:15 BP 168 / 106 (auto/); cf2 00:24 Pulse 74 MON; Pulse Ox 97% ; cf2 00:28 Pulse 64 MON; Pulse Ox 96% ; cf2 00:30 Pulse 62 MON; Pulse Ox 100% ; cf2 00:33 Pulse 56 MON; Pulse Ox 98% ; cf2 00:37 Pulse 60 MON; Pulse Ox 99% ; cf2 00:44 Pulse 62 MON; Pulse Ox 99% ; cf2 19:51 BP 132 / 82; Pulse 54; Resp 18; Temp 96.6(O); Pulse Ox 95% on R/A; 06/17 17:59 Body Mass Index 20.36 (58.97 kg, 170.18 cm) [facility] MDM: 06/17 18:14 Consult PFS/PSA/Developer Programmer ordered. ml 18:14 Consult PFS/PSA/Developer Programmer: Patient's case requires discussion with on-call ml Psychiatrist ordered. 18:14 PSA/PFS to call Nursing Supervisor Roving, to enter patient data on [place] Safe Act if patient ml involuntarily admitted or transferred for SI or HI ordered. 18:14 Analytical Manager/Pulse Ox/q 15 min VS ordered. ml 18:14 Confirm accurate psychiatric medication list and times of last dosage ordered. ml 18:14 Detain Pt Until Medically/PFS Cleared ordered. ml 18:14 IV Saline Lock ordered. ml 18:14 Rhythm Strip to chart ordered. ml 18:14 Oxygen at 4L/Min NC or Home dosage ordered. ml 18:14 Solu-MEDROL 125 mg IVP once ordered. ml 18:14 Albuterol 5 mg Nebulizer once ordered. ml 18:14 Albuterol-Ipratropium 3 ml Inhalation once ordered. ml 18:14 Call Respiratory ordered. ml 18:14 Call Respiratory ordered. ml 18:14 Acetaminophen Tablet 650 mg PO once ordered. ml 18:15 -Blood Culture (Adults Only), peripheral from different site, or from device/port/PICC ml etc. if present ordered. 18:15 -Arterial Blood Gas Ordered. EDMS 18:15 Acetaminophen Level Ordered. EDMS 18:15 Basic Metabolic Profile Ordered. EDMS 18:15 Complete Blood Count Ordered. EDMS 18:15 Drug Eval Toxicology ED Only Ordered. EDMS 18:15 Ethyl Alcohol (ethanol) Ordered. EDMS 18:15 HCG,Serum Qualitative Ordered. EDMS 18:15 Liver Profile Ordered. EDMS 18:15 Salicylate Level Ordered. EDMS 18:15 Thyroid Stimulating Hormone Ordered. EDMS 18:15 Call Respiratory complete. deg 18:16 Call Respiratory complete. deg 18:16 Lactic Acid (Woody tube on ice) Ordered. EDMS 18:16 NS 0.9% 1000 ml IV at bolus once ordered. ml 18:16 -Blood Culture Ordered. EDMS 18:16 Chest, 1 View Ordered. EDMS 18:16 ECG WITH READING ER PHYS+CARDIAG ordered. EDMS 18:22 -Blood Culture (Adults Only), peripheral from different site, or from device/port/PICC deg etc. if present complete. 18:23 BLOOD CULTURES Ordered. EDMS 18:26 UA Ordered. EDMS 18:26 Urine Culture Ordered. EDMS 18:39 NS 0.9% 1000 ml IV at bolus once ordered. ml 18:[facility] Specialist Product Demonstrator Order ordered. ml 18:43 BED REQUEST+ADM ordered. EDMS 18:45 [facility] Event Specialist Product Demonstrator Order complete. tmm1 18:46 BLOOD CULTURES Ordered. EDMS 18:46 BLOOD CULTURES Ordered. EDMS 19:12 Obtain sample by nasopharyngeal swab ordered. ml 19:13 -Influenza A&B Rapid Antigen - Nose Ordered. EDMS 19:13 Mis. Nursing Order ordered. ml 19:13 cefTRIAXone 2 grams IVPB once over 30 mins; dilute in 50mL of NS or D5W ordered. ml 19:14 vancomycin (loading dose for pt. wt. 40-49kg) 1000 mg IVPB once ordered. ml 19:14 ESR Ordered. EDMS 19:34 Consult PFS/PSA/Developer Programmer complete. cl 19:34 Consult PFS/PSA/Developer Programmer: Patient's case requires discussion with on-call cl Psychiatrist complete. 19:34 PSA/PFS to call Nursing Supervisor Roving, to enter patient data on [place] Safe Act if patient cl involuntarily admitted or transferred for SI or HI complete. 19:59 Admission / Observation Status ordered. EDMS 19:59 ECHOCARD,DOPPLER/COLOR FLOW ordered. EDMS 20:00 OTHER CUSTOM DIETS ordered. EDMS 20:00 C REACTIVE PROTEIN QUANTITATIV Ordered. EDMS 20:01 ERYTHROCYTE SEDIMENTATION RATE Ordered. EDMS 20:01 CBC WITH DIFFERENTIAL Ordered. EDMS 20:01 BASIC METABOLIC PROFILE Ordered. EDMS 20:01 HIV 1&2 ANTIBODY SCREEN Ordered. EDMS 20:01 HEPATITIS PROFILE Ordered. EDMS 20:01 RESPIRATORY PANEL Ordered. EDMS 20:13 SPUTUM CULTURE AND GRAM STAIN Ordered. EDMS 20:31 -Arterial Blood Gas Reviewed. ml 20:31 Acetaminophen Level Reviewed. ml 20:31 Basic Metabolic Profile Reviewed. ml 20:31 Complete Blood Count Reviewed. ml 20:31 Drug Eval Toxicology ED Only Reviewed. ml 20:31 Liver Profile Reviewed. ml 20:31 Salicylate Level Reviewed. ml 20:31 Thyroid Stimulating Hormone Reviewed. ml 20:31 UA Reviewed. ml 20:31 ESR Reviewed. ml 20:31 C REACTIVE PROTEIN QUANTITATIV Reviewed. ml 20:31 MAGNESIUM LEVEL Reviewed. ml 20:31 Ethyl Alcohol (ethanol) Reviewed. ml 20:31 HCG,Serum Qualitative Reviewed. ml 20:31 Lactic Acid (Woody tube on ice) Reviewed. ml 20:31 -Influenza A&B Rapid Antigen - Nose Reviewed. ml 20:31 Chest, 1 View Reviewed. ml 20:31 MANUAL DIFFFERENTIAL Ordered. EDMS 20:44 [facility] Payment Agreement was scanned into Ep[employer] and attached to record. b 20:44 Financial registration complete. gjb 22:21 MAGNESIUM LEVEL Ordered. EDMS 06/18 01:32 VANCOMYCIN LEVEL TROUGH Ordered. EDMS 09:34 T-Sheet-- Draft Copy was scanned into Epunch[employer] and attached to record. gb 12:14 REGULAR DIET ordered. EDMS 14:16 BASIC METABOLIC PROFILE Ordered. EDMS 18:12 RESPIRATORY PANEL Ordered. EDMS 19:32 CBC WITH DIFFERENTIAL Ordered. EDMS 19:32 BASIC METABOLIC PROFILE Ordered. EDMS 19:34 C REACTIVE PROTEIN QUANTITATIV Ordered. EDMS 19:34 ERYTHROCYTE SEDIMENTATION RATE Ordered. EDMS Administered Medications: 06/17 18:41 Drug: Albuterol 5 mg [albuterol sulfate 2.5 mg/0.5 mL solution for nebulization (1 mL)] js11 Route: Nebulizer; 18:41 Drug: Albuterol-Ipratropium 3 ml [ipratropium-albuterol 0.5 mg-3 mg(2.5 mg base)/3 mL js11 nebulization soln (3 mL)] Route: Inhalation; 18:50 Drug: Acetaminophen 650 mg [acetaminophen 325 mg tablet (2 tabs)] Route: PO; kc3 21:00 Follow up: Temp 96.9 Oral; Response: Temperature is decreased js15 19:00 Drug: NS 0.9% 1000 ml [sodium chloride 0.9 % intravenous solution] Route: IV; Rate: js15 bolus; Site: right jugular; 21:30 Follow up: IV Status: Completed infusion; IV Intake: 1000ml js15 19:01 Drug: Solu-MEDROL 125 mg [Solu-Medrol 500 mg intravenous solution (125 mg)] Route: IVP; kc3 Site: right jugular; 21:25 Drug: cefTRIAXone 2 grams [ceftriaxone 1 gram solution for injection] Route: IVPB; js15 Infused Over: 30 mins; Site: right jugular; 21:30 Drug: NS 0.9% 1000 ml [sodium chloride 0.9 % intravenous solution] Route: IV; Rate: js15 bolus; Site: right jugular; 06/18 00:45 Drug: vancomycin (loading dose for pt. wt. 40-49kg) 1000 mg [vancomycin 500 mg cf2 intravenous solution] Route: IVPB; Site: left antecubital; Signatures: Dispatcher [employer] EDMS Ludwin Wiley MD MD ml Grace Rome, RN RN kcs Summer Chung, Safety Representative Unit deg Theodore, Héctor, PSA PSA cl Barnhardt, Edith, Reg Reg gb McLear, Amirah, DIVISION ROAD SUPERVISOR DIVISION ROAD SUPERVISOR tmm1 Michelle Sorensen, RN RN sls2 Yolande HongRN RN nn1 Samantha Costello Christina,RN RN cf2 Baltazar Albarran js11 Kianna Rodriguez RN js15 Amalia Duran RN kc3 The chart was reviewed and I authenticate all verbal orders and agree with the evaluation and treatment provided.Corrections: (The following items were deleted from the chart) 06/17 18:16 18:15 ARTERIAL BLOOD GAS+LAB ordered. EDMS EDMS 19:39 19:14 C REACTIVE PROTEIN QUANTITATIV+LAB ordered. EDMS EDMS 19:42 18:39 Straight cath ordered. ml js15 20:12 20:00 MAGNESIUM LEVEL ordered. EDMS EDMS 20:28 20:12 DIFFERENTIAL ordered. EDMS EDMS 21:11 20:12 FREE T4 ordered. EDMS EDMS 22:20 20:01 MAGNESIUM LEVEL ordered. EDMS EDMS 06/18 14:16 08:32 BASIC METABOLIC PROFILE ordered. EDMS EDMS Attachments: 06/17 20:44 [facility] Payment Agreement gjb 06/18 09:34 T-Sheet-- Draft Copy gb Chart Complete MTDD
--- NOTE | 2016-06-20 20:57 | EDDOCDS ---
Physician Documentation [facility] Name: Mily Howell Age: 20 yrs Sex: Female : 1995 Arrival Date: 06/17/2016 Time: 17:48 Bed Admit Hold Private MD: Disposition: 06/17/16 19:23 Hospitalization ordered by Jasson Guthrie for Inpatient Admission. Preliminary diagnosis are Fever, unspecified - rule out endocarditis; heart murmur, Poisoning by unspecified drugs, medicaments and biological substances, accidental (unintentional) - heroine overdose, Hypoxemia. - Bed requested for PCU. - Status is Inpatient Admission. nn1 - Condition is Stable. - Problem is new. - Symptoms are unchanged. Historical: - Allergies: No known drug Allergies; - Home Meds: 1. none - PMHx: Anxiety; back pain; Depression; opiate dependency; - PSHx: none; - Social history: Smoking status: Patient uses tobacco products, light tobacco smoker. No barriers to communication noted, The patient speaks fluent Luxembourgish, Patient uses street drugs, heroin. - Family history: Not pertinent. - : The pt / caregiver states he / she is not on anticoagulants. Home medication list is obtained from family members. - Exposure Risk Screening:: None identified. 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 7 in. (170.18 cm); Pain 10/10; 18:08 BP 107 / 55 (auto/); kc3 18:10 Pulse 112 MON; Pulse Ox 92% ; kc3 18:30 BP 110 / 65 (auto/); kc3 18:30 Pulse 100 MON; Pulse Ox 95% ; kc3 19:07 BP 112 / 63 (auto/); kc3 19:07 Pulse 108 MON; Pulse Ox 94% ; kc3 19:29 Pulse 79 MON; Pulse Ox 98% ; js15 19:30 BP 141 / 71 (auto/); js15 20:00 BP 123 / 84 (auto/); js15 20:00 Pulse 81 MON; Pulse Ox 99% ; js15 21:00 Temp 96.9(O); js15 21:26 Pulse 62 MON; Pulse Ox 99% ; js15 21:27 BP 131 / 58 (auto/); js15 21:30 BP 125 / 63 (auto/); js15 21:30 Pulse 61 MON; Pulse Ox 99% ; js15 21:44 Pulse 55 MON; Pulse Ox 100% ; js15 21:45 BP 132 / 69 (auto/); js15 22:00 Pulse Ox 100% ; cf2 22:00 BP 129 / 80 (auto/); cf2 22:12 Pulse 62 MON; Pulse Ox 100% ; js15 22:15 BP 129 / 66 (auto/); js15 22:29 Pulse 53 MON; Pulse Ox 99% ; js15 22:30 BP 133 / 76 (auto/); js15 22:44 Pulse 53 MON; Pulse Ox 99% ; js15 22:45 BP 125 / 72 (auto/); js15 23:00 BP 132 / 80 (auto/); js15 23:00 Pulse 69 MON; Pulse Ox 97% ; js15 23:15 BP 137 / 80 (auto/); js15 23:15 Pulse 62 MON; Pulse Ox 97% ; js15 23:29 Pulse 62 MON; Pulse Ox 97% ; js15 23:30 BP 144 / 88 (auto/); js15 23:44 Pulse 69 MON; Pulse Ox 97% ; js15 23:45 BP 144 / 90 (auto/); 15 06/18 00:00 Pulse 58 MON; Pulse Ox 100% ; cf2 00:00 BP 170 / 129 (auto/); cf2 00:15 Pulse 58 MON; Pulse Ox 99% ; cf2 00:15 BP 168 / 106 (auto/); cf2 00:24 Pulse 74 MON; Pulse Ox 97% ; cf2 00:28 Pulse 64 MON; Pulse Ox 96% ; cf2 00:30 Pulse 62 MON; Pulse Ox 100% ; cf2 00:33 Pulse 56 MON; Pulse Ox 98% ; cf2 00:37 Pulse 60 MON; Pulse Ox 99% ; cf2 00:44 Pulse 62 MON; Pulse Ox 99% ; cf2 19:51 BP 132 / 82; Pulse 54; Resp 18; Temp 96.6(O); Pulse Ox 95% on R/A; 06/17 17:59 Body Mass Index 20.36 (58.97 kg, 170.18 cm) [facility] MDM: 06/17 18:14 Consult PFS/PSA/Manufacturing Test Technician ordered. ml 18:14 Consult PFS/PSA/Manufacturing Test Technician: Patient's case requires discussion with on-call ml Psychiatrist ordered. 18:14 PSA/PFS to call Nursing Environmental Professional, to enter patient data on [place] Safe Act if patient ml involuntarily admitted or transferred for SI or HI ordered. 18:14 Pipe Coverer/Pulse Ox/q 15 min VS ordered. ml 18:14 Confirm accurate psychiatric medication list and times of last dosage ordered. ml 18:14 Detain Pt Until Medically/PFS Cleared ordered. ml 18:14 IV Saline Lock ordered. ml 18:14 Rhythm Strip to chart ordered. ml 18:14 Oxygen at 4L/Min NC or Home dosage ordered. ml 18:14 Solu-MEDROL 125 mg IVP once ordered. ml 18:14 Albuterol 5 mg Nebulizer once ordered. ml 18:14 Albuterol-Ipratropium 3 ml Inhalation once ordered. ml 18:14 Call Respiratory ordered. ml 18:14 Call Respiratory ordered. ml 18:14 Acetaminophen Tablet 650 mg PO once ordered. ml 18:15 -Blood Culture (Adults Only), peripheral from different site, or from device/port/PICC ml etc. if present ordered. 18:15 -Arterial Blood Gas Ordered. EDMS 18:15 Acetaminophen Level Ordered. EDMS 18:15 Basic Metabolic Profile Ordered. EDMS 18:15 Complete Blood Count Ordered. EDMS 18:15 Drug Eval Toxicology ED Only Ordered. EDMS 18:15 Ethyl Alcohol (ethanol) Ordered. EDMS 18:15 HCG,Serum Qualitative Ordered. EDMS 18:15 Liver Profile Ordered. EDMS 18:15 Salicylate Level Ordered. EDMS 18:15 Thyroid Stimulating Hormone Ordered. EDMS 18:15 Call Respiratory complete. deg 18:16 Call Respiratory complete. deg 18:16 Lactic Acid (Woody tube on ice) Ordered. EDMS 18:16 NS 0.9% 1000 ml IV at bolus once ordered. ml 18:16 -Blood Culture Ordered. EDMS 18:16 Chest, 1 View Ordered. EDMS 18:16 ECG WITH READING ER PHYS+CARDIAG ordered. EDMS 18:22 -Blood Culture (Adults Only), peripheral from different site, or from device/port/PICC deg etc. if present complete. 18:23 BLOOD CULTURES Ordered. EDMS 18:26 UA Ordered. EDMS 18:26 Urine Culture Ordered. EDMS 18:39 NS 0.9% 1000 ml IV at bolus once ordered. [facility] Order ordered. ml 18:43 BED REQUEST+ADM ordered. EDMS 18:45 [facility] [place] Machine Operator Order complete. tmm1 18:46 BLOOD CULTURES Ordered. EDMS 18:46 BLOOD CULTURES Ordered. EDMS 19:12 Obtain sample by nasopharyngeal swab ordered. ml 19:13 -Influenza A&B Rapid Antigen - Nose Ordered. EDMS 19:13 Mis. Nursing Order ordered. ml 19:13 cefTRIAXone 2 grams IVPB once over 30 mins; dilute in 50mL of NS or D5W ordered. ml 19:14 vancomycin (loading dose for pt. wt. 40-49kg) 1000 mg IVPB once ordered. ml 19:14 ESR Ordered. EDMS 19:34 Consult PFS/PSA/Manufacturing Test Technician complete. cl 19:34 Consult PFS/PSA/Manufacturing Test Technician: Patient's case requires discussion with on-call cl Psychiatrist complete. 19:34 PSA/PFS to call Nursing Environmental Professional, to enter patient data on [place] Safe Act if patient cl involuntarily admitted or transferred for SI or HI complete. 19:59 Admission / Observation Status ordered. EDMS 19:59 ECHOCARD,DOPPLER/COLOR FLOW ordered. EDMS 20:00 OTHER CUSTOM DIETS ordered. EDMS 20:00 C REACTIVE PROTEIN QUANTITATIV Ordered. EDMS 20:01 ERYTHROCYTE SEDIMENTATION RATE Ordered. EDMS 20:01 CBC WITH DIFFERENTIAL Ordered. EDMS 20:01 BASIC METABOLIC PROFILE Ordered. EDMS 20:01 HIV 1&2 ANTIBODY SCREEN Ordered. EDMS 20:01 HEPATITIS PROFILE Ordered. EDMS 20:01 RESPIRATORY PANEL Ordered. EDMS 20:13 SPUTUM CULTURE AND GRAM STAIN Ordered. EDMS 20:31 -Arterial Blood Gas Reviewed. ml 20:31 Acetaminophen Level Reviewed. ml 20:31 Basic Metabolic Profile Reviewed. ml 20:31 Complete Blood Count Reviewed. ml 20:31 Drug Eval Toxicology ED Only Reviewed. ml 20:31 Liver Profile Reviewed. ml 20:31 Salicylate Level Reviewed. ml 20:31 Thyroid Stimulating Hormone Reviewed. ml 20:31 UA Reviewed. ml 20:31 ESR Reviewed. ml 20:31 C REACTIVE PROTEIN QUANTITATIV Reviewed. ml 20:31 MAGNESIUM LEVEL Reviewed. ml 20:31 Ethyl Alcohol (ethanol) Reviewed. ml 20:31 HCG,Serum Qualitative Reviewed. ml 20:31 Lactic Acid (Woody tube on ice) Reviewed. ml 20:31 -Influenza A&B Rapid Antigen - Nose Reviewed. ml 20:31 Chest, 1 View Reviewed. ml 20:31 MANUAL DIFFFERENTIAL Ordered. EDMS 20:44 [facility] Payment Agreement was scanned into stylemarks and attached to record. b 20:44 Financial registration complete. gjb 22:21 MAGNESIUM LEVEL Ordered. EDMS 06/18 01:32 VANCOMYCIN LEVEL TROUGH Ordered. EDMS 09:34 T-Sheet-- Draft Copy was scanned into stylemarks and attached to record. gb 12:14 REGULAR DIET ordered. EDMS 14:16 BASIC METABOLIC PROFILE Ordered. EDMS 18:12 RESPIRATORY PANEL Ordered. EDMS 19:32 CBC WITH DIFFERENTIAL Ordered. EDMS 19:32 BASIC METABOLIC PROFILE Ordered. EDMS 19:34 C REACTIVE PROTEIN QUANTITATIV Ordered. EDMS 19:34 ERYTHROCYTE SEDIMENTATION RATE Ordered. EDMS Administered Medications: 06/17 18:41 Drug: Albuterol 5 mg [albuterol sulfate 2.5 mg/0.5 mL solution for nebulization (1 mL)] js11 Route: Nebulizer; 18:41 Drug: Albuterol-Ipratropium 3 ml [ipratropium-albuterol 0.5 mg-3 mg(2.5 mg base)/3 mL js11 nebulization soln (3 mL)] Route: Inhalation; 18:50 Drug: Acetaminophen 650 mg [acetaminophen 325 mg tablet (2 tabs)] Route: PO; kc3 21:00 Follow up: Temp 96.9 Oral; Response: Temperature is decreased js15 19:00 Drug: NS 0.9% 1000 ml [sodium chloride 0.9 % intravenous solution] Route: IV; Rate: js15 bolus; Site: right jugular; 21:30 Follow up: IV Status: Completed infusion; IV Intake: 1000ml js15 19:01 Drug: Solu-MEDROL 125 mg [Solu-Medrol 500 mg intravenous solution (125 mg)] Route: IVP; kc3 Site: right jugular; 21:25 Drug: cefTRIAXone 2 grams [ceftriaxone 1 gram solution for injection] Route: IVPB; js15 Infused Over: 30 mins; Site: right jugular; 21:30 Drug: NS 0.9% 1000 ml [sodium chloride 0.9 % intravenous solution] Route: IV; Rate: js15 bolus; Site: right jugular; 06/18 00:45 Drug: vancomycin (loading dose for pt. wt. 40-49kg) 1000 mg [vancomycin 500 mg cf2 intravenous solution] Route: IVPB; Site: left antecubital; Signatures: Dispatcher [employer] EDMS Ludwin Wiley MD MD ml Grace Rome, RN RN kcs Summer Chung, Ventilating Equipment Installer Unit deg Theodore, Héctor, PSA PSA cl Barnhardt, Edith, Reg Reg gb McLear, Amirah, UTILITY SYSTEM OPERATOR UTILITY SYSTEM OPERATOR tmm1 Michelle Sorensen, RN RN sls2 Yolande HongRN RN nn1 Samantha Costello Christina,RN RN cf2 Baltazar Albarran js11 Kianna Rodriguez RN js15 Amalia Duran RN kc3 The chart was reviewed and I authenticate all verbal orders and agree with the evaluation and treatment provided.Corrections: (The following items were deleted from the chart) 06/17 18:16 18:15 ARTERIAL BLOOD GAS+LAB ordered. EDMS EDMS 19:39 19:14 C REACTIVE PROTEIN QUANTITATIV+LAB ordered. EDMS EDMS 19:42 18:39 Straight cath ordered. ml js15 20:12 20:00 MAGNESIUM LEVEL ordered. EDMS EDMS 20:28 20:12 DIFFERENTIAL ordered. EDMS EDMS 21:11 20:12 FREE T4 ordered. EDMS EDMS 22:20 20:01 MAGNESIUM LEVEL ordered. EDMS EDMS 06/18 14:16 08:32 BASIC METABOLIC PROFILE ordered. EDMS EDMS Attachments: 06/17 20:44 [place] [place] Payment Agreement gjb 06/18 09:34 T-Sheet-- Draft Copy gb Chart Complete MTDD
--- NOTE | 2016-06-20 20:58 | EDDOCDS ---
Nurse's Notes [facility] Name: Mily Pagan Age: 20 yrs Sex: Female : 1995 Arrival Date: 06/17/2016 Time: 17:48 Bed Admit Hold Private MD: Diagnosis: Fever, unspecified-rule out endocarditis; heart murmur;Poisoning by unspecified drugs, medicaments and biological substances, accidental (unintentional)-heroine overdose;Hypoxemia Presentation: 06/17 17:52 Presenting complaint: EMS states: Patient was found unconscious after using 4 bags of kcs heroin - given 2 mg of Narcan IN and then followed with a 2nd 2 mg after unable to get IV access - patient was coming around after that. Initially patient had agonal respirations and respirations were being assisted. Suicide/Homicide risk assessment- the patient denies having any suicidal and/or homicidal ideations and does not present with any other emotional, behavioral or mental health complaints. Status: Patient is not a service delivery consultant or dependent. Transition of care: patient was not received from another setting of care. Care prior to arrival: See EMS report. Medications administered prior to arrival: Narcan Glucose check. 220. 17:52 Method Of Arrival: Ambulance kcs 18:01 Adult Sepsis Screening: Patient has new or worsening altered mentation (1 point). kcs Patient's respiratory rate is less than 22. Systolic blood pressure is greater than 100. Patient has a qSOFA score of 0- Negative Sepsis Screen. 18:01 Acuity: SUZIE Level 3 kcs Triage Assessment: 17:55 General: Appears comfortable, well developed, well nourished, well groomed, Behavior is kcs cooperative, quiet. Pain: Location: head Pain currently is 10 out of 10 on a pain scale. HIV screening NA for this visit Offered previously. The patient is triaged at the bedside. See Assessment in Nurses Notes section of ED record. Neurological: Level of Consciousness is awake, alert. Respiratory: Airway is patent Respiratory effort is even, unlabored, Respiratory pattern is regular, symmetrical. Derm: Skin is intact, is healthy with good turgor, Skin is dry, Skin is normal. DRAWER IN JACQUARD LOOM: 06/18 00:53 Unknown cf2 Historical: - Allergies: No known drug Allergies; - Home Meds: 1. none - PMHx: Anxiety; back pain; Depression; opiate dependency; - PSHx: none; - Social history: Smoking status: Patient uses tobacco products, light tobacco smoker. No barriers to communication noted, The patient speaks fluent Bulgarian, Patient uses street drugs, heroin. - Family history: Not pertinent. - : The pt / caregiver states he / she is not on anticoagulants. Home medication list is obtained from family members. - Exposure Risk Screening:: None identified. Screenin/23 19:28 Screening information is obtained from the patient. Fall risk: At risk due to apparent kc3 chemical impairment, The following interventions are performed due to a positive Fall Risk Screen: Fall Risk is added to Special Handling on the patient Summary Screen. A Fall Risk Bracelet was applied to the patient. Side Rails are placed in the up position. A Call Ponce is given with instruction to call for help when getting out of bed. Fall Alert bracelet is placed on the patient. Assistance ADL's: requires no assistance with activities of daily living. 22:00 Abuse/DV Screen: The patient / caregiver reports he/she is: not in a situation that cf2 causes fear, pain or injury. Nutritional screening: No deficits noted. Advance Directives: Further advance directive information is declined. home support is adequate. Assessment: 18:30 General: Appears uncomfortable, Behavior is appropriate for age, cooperative, fussy. kc3 Pain: Denies pain. Neurological: Level of Consciousness is awake, alert, obeys commands, Oriented to person, place, time. Cardiovascular: Rhythm is regular. Respiratory: Respiratory effort is even, unlabored. Derm: Skin is intact, Skin temperature is hot multiple minor lacerations from previous drug use to multiple body areas. Musculoskeletal: Circulation, motion, and sensation intact. 19:30 General: Appears in no apparent distress, Behavior is appropriate for age, cooperative. js15 Neurological: Level of Consciousness is awake, alert, obeys commands, Oriented to person, place, time. Cardiovascular: Rhythm is sinus tachycardia. Respiratory: Airway is patent Respiratory effort is even, unlabored, Respiratory pattern is regular, symmetrical. Derm: Skin is intact, Skin is moist, Skin temperature is hot. 19:41 General: Patient up to bedside commode to urinate with help of RN. Sample obtained and kas2 sent to lab.. 20:30 Reassessment: Patient appears in no apparent distress at this time. Pt resting on js15 stretcher with eyes open, significant other at bedside, respirations even and unlabored; skin pink, moist, warm, will continue to monitor. 21:30 Reassessment: Patient appears in no apparent distress at this time. Pt resting on js15 stretcher with eyes closed, respirations even and unlabored; skin pink, warm, dry. 22:30 General: Appears in no apparent distress, to be sleeping. Cardiovascular: Rhythm is. js15 Cardiovascular: Rhythm is sinus rhythm. Respiratory: Airway is patent Respiratory effort is even, unlabored, Respiratory pattern is regular, symmetrical. Derm: Skin is intact, Skin is normal. 23:46 General: Patient received from previous shift resting comfortably, offers no complaints cf2 at present time. 06/18 00:49 Adult Sepsis Screening: The patient does not have new or worsening altered mentation. cf2 Patient's respiratory rate is less than 22. Systolic blood pressure is greater than 100. Patient has a qSOFA score of 0- Negative Sepsis Screen. General: Patient resting comfortably. Offers no complaints at present time. . 19:46 Adult Sepsis Screening: The patient does not have new or worsening altered mentation. nn1 Patient's respiratory rate is less than 22. Systolic blood pressure is greater than 100. Patient has a qSOFA score of 0- Negative Sepsis Screen. General: Appears in no apparent distress. Pain: Denies pain. Neurological: Level of Consciousness is awake, alert, obeys commands. Respiratory: Airway is patent Respiratory effort is even, unlabored, Respiratory pattern is regular, symmetrical. Derm: Skin is normal. Vital Signs: 06/17 17:59 BP 116 / 57; Pulse 104; Resp 20; Temp 103.1(O); Pulse Ox 90% on 2 lpm NC; Weight 58.97 jlf kg; Height 5 ft. 7 in. (170.18 cm); Pain 10/10; 18:08 BP 107 / 55 (auto/); kc3 18:10 Pulse 112 MON; Pulse Ox 92% ; kc3 18:30 BP 110 / 65 (auto/); kc3 18:30 Pulse 100 MON; Pulse Ox 95% ; kc3 19:07 BP 112 / 63 (auto/); kc3 19:07 Pulse 108 MON; Pulse Ox 94% ; kc3 19:29 Pulse 79 MON; Pulse Ox 98% ; js15 19:30 BP 141 / 71 (auto/); js15 20:00 BP 123 / 84 (auto/); js15 20:00 Pulse 81 MON; Pulse Ox 99% ; js15 21:00 Temp 96.9(O); js15 21:26 Pulse 62 MON; Pulse Ox 99% ; js15 21:27 BP 131 / 58 (auto/); js15 21:30 BP 125 / 63 (auto/); js15 21:30 Pulse 61 MON; Pulse Ox 99% ; js15 21:44 Pulse 55 MON; Pulse Ox 100% ; js15 21:45 BP 132 / 69 (auto/); js15 22:00 Pulse Ox 100% ; cf2 22:00 BP 129 / 80 (auto/); cf2 22:12 Pulse 62 MON; Pulse Ox 100% ; js15 22:15 BP 129 / 66 (auto/); 15 22:29 Pulse 53 MON; Pulse Ox 99% ; 15 22:30 BP 133 / 76 (auto/); 15 22:44 Pulse 53 MON; Pulse Ox 99% ; 15 22:45 BP 125 / 72 (auto/); js15 23:00 BP 132 / 80 (auto/); 15 23:00 Pulse 69 MON; Pulse Ox 97% ; js15 23:15 BP 137 / 80 (auto/); js15 23:15 Pulse 62 MON; Pulse Ox 97% ; js15 23:29 Pulse 62 MON; Pulse Ox 97% ; 15 23:30 BP 144 / 88 (auto/); js15 23:44 Pulse 69 MON; Pulse Ox 97% ; js15 23:45 BP 144 / 90 (auto/); 15 06/18 00:00 Pulse 58 MON; Pulse Ox 100% ; cf2 00:00 BP 170 / 129 (auto/); cf2 00:15 Pulse 58 MON; Pulse Ox 99% ; cf2 00:15 BP 168 / 106 (auto/); cf2 00:24 Pulse 74 MON; Pulse Ox 97% ; cf2 00:28 Pulse 64 MON; Pulse Ox 96% ; cf2 00:30 Pulse 62 MON; Pulse Ox 100% ; cf2 00:33 Pulse 56 MON; Pulse Ox 98% ; cf2 00:37 Pulse 60 MON; Pulse Ox 99% ; cf2 00:44 Pulse 62 MON; Pulse Ox 99% ; cf2 19:51 BP 132 / 82; Pulse 54; Resp 18; Temp 96.6(O); Pulse Ox 95% on R/A; nn1 06/17 17:59 Body Mass Index 20.36 (58.97 kg, 170.18 cm) [facility] Vitals: 06/17 17:55 Log In Time N/A - ambulance arrival. [facility] ED Course: 17:48 Patient visited by Summer Chung, Outreach Rep. deg 17:48 Patient moved to Waiting deg 17:57 Amalia Duran,RN is Primary Nurse. kcs 17:57 Patient moved to 3 kcs 17:59 Patient visited by Bryce Stoddard PCA. jlf 17:59 Patient visited by Bryce Stoddard PCA. jlf 18:01 Triage Initiated kcs 18:05 Ludwin Wiley MD is Attending Physician. ml 18:06 Patient visited by Ludwin Wiley MD. ml 18:15 Patient visited by Bryce Stoddard PCA. jlf 18:15 Pt greeted and oriented to ED. Patient advised of names of staff involved in care, [facility] location of call ponce, wait times and NPO status. Patient has correct armband on for positive identification. Placed in psych safe attire. Bed in low position. Side rails up X2. youth nutritional monitor on. Pulse ox on. NIBP on. 18:16 Patient visited by Bryce Stoddard PCA. jlf 18:33 -Arterial Blood Gas Sent. js11 18:40 Inserted saline lock: 20 gauge in right and blood collected. The patient tolerated the kc3 procedure well. right EJ placed by Dr. Woody. 18:46 BLOOD CULTURES Sent. kc3 18:46 BLOOD CULTURES Sent. kc3 18:50 Lactic Acid (Woody tube on ice) Sent. kc3 18:50 Acetaminophen Level Sent. kc3 18:50 Basic Metabolic Profile Sent. kc3 18:50 Complete Blood Count Sent. kc3 18:50 Ethyl Alcohol (ethanol) Sent. kc3 18:50 HCG,Serum Qualitative Sent. kc3 18:50 Liver Profile Sent. kc3 18:50 Thyroid Stimulating Hormone Sent. kc3 18:50 Salicylate Level Sent. kc3 19:21 Jasson Guthrie MD is Hospitalizing Provider. ml 19:26 EKG done. (by ED staff). Reviewed by Ludwin Wiley MD. jlm 19:42 Patient visited by Jessica Ramos RN. kas2 19:42 Urine collected. Clean catch specimen. Urine specimen sent to lab. kas2 19:58 Chest, 1 View Returned. EDMS 20:04 -Influenza A&B Rapid Antigen - Nose Sent. js15 20:43 Patient moved to Admit Hold tmm1 20:44 [facility] Payment Agreement was scanned into [employer] and attached to record. gjb 21:45 Primary Nurse role handed off by Amalia Duran RN carol 22:00 The patient / caregiver is instructed regarding the plan of care and ED course. Report cf2 given to ER hold Nurse. 22:00 No procedures done that require assistance. cf2 22:08 EKG-ADULT Returned. EDMS 23:25 Paty Martinez RN is Primary Nurse. cf2 23:25 Patient visited by Paty Martinez RN. cf2 23:40 Patient visited by Paty Martinez RN. cf2 06/18 00:16 Mary Kay Gomes RN is Primary Nurse. carol 00:27 moved to hospital bed. Repositioned patient. Linen changed. youth nutritional monitor on. Pulse jlm ox on. NIBP on. 00:29 Patient visited by Petra Muhammad, Outreach Rep. jlm 00:40 Patient visited by Petra Muhammad, Outreach Rep. jlm 00:40 Assisted to bedside commode. jlm 00:49 Patient visited by Paty Martinez RN. cf2 01:29 Primary Nurse role handed off by Mary Kay Gomes RN carol 09:34 T-Sheet-- Draft Copy was scanned into [employer] and attached to record. gb 19:04 Patient visited by Montez Price PCA. kb5 Administered Medications: 06/17 18:41 Drug: Albuterol 5 mg [albuterol sulfate 2.5 mg/0.5 mL solution for nebulization (1 mL)] js11 Route: Nebulizer; 18:41 Drug: Albuterol-Ipratropium 3 ml [ipratropium-albuterol 0.5 mg-3 mg(2.5 mg base)/3 mL js11 nebulization soln (3 mL)] Route: Inhalation; 18:50 Drug: Acetaminophen 650 mg [acetaminophen 325 mg tablet (2 tabs)] Route: PO; kc3 21:00 Follow up: Temp 96.9 Oral; Response: Temperature is decreased 15 19:00 Drug: NS 0.9% 1000 ml [sodium chloride 0.9 % intravenous solution] Route: IV; Rate: js15 bolus; Site: right jugular; 21:30 Follow up: IV Status: Completed infusion; IV Intake: 1000ml 15 19:01 Drug: Solu-MEDROL 125 mg [Solu-Medrol 500 mg intravenous solution (125 mg)] Route: IVP; kc3 Site: right jugular; 21:25 Drug: cefTRIAXone 2 grams [ceftriaxone 1 gram solution for injection] Route: IVPB; js15 Infused Over: 30 mins; Site: right jugular; 21:30 Drug: NS 0.9% 1000 ml [sodium chloride 0.9 % intravenous solution] Route: IV; Rate: js15 bolus; Site: right jugular; 06/18 00:45 Drug: vancomycin (loading dose for pt. wt. 40-49kg) 1000 mg [vancomycin 500 mg cf2 intravenous solution] Route: IVPB; Site: left antecubital; Intake: 06/17 21:30 IV: 1000.00ml; Total: 1000.00ml. js15 RT: 18:33 ABG's drawn from left radial artery allens test done and positive pressure held for 5 js11 minutes no bleeding noted specimen sent pt. tolerated well. 18:41 Initial Med Neb Given as ordered Patient was instructed and evaluated on procedure js11 Patient tolerated procedure well without adverse effect. Respiratory: Breath sounds are diminished bilaterally. Order Results: Lab Order: -Arterial Blood Gas; SPEC'M 06/17/16 18:27 Test: ABG pH (ARTERIAL); Value: 7.482; Range: 7.350-7.450; Abnormal: Above high normal; Units: UNITS; Status: F Test: ABG PARTIAL PRESSURE CO2; Value: 30.8; Range: 35.0-45.0; Abnormal: Below low normal; Units: mmHg; Status: F Test: ABG PARTIAL PRESSURE O2; Value: 80.4; Range: 75.0-100.0; Units: mmHg; Status: F Test: ABG TOTAL CO2; Value: 23.5; Range: 22.0-29.0; Units: MEQ/L; Status: F Test: ABG HCO3; Value: 22.5; Range: 22.0-26.0; Units: MEQ/L; Status: F Test: ABG BASE EXCESS; Value: -0.2; Range: -2.0-2.0; Status: F Test: ABG STANDARD HCO3; Value: 24.3; Range: 22.0-26.0; Units: MEQ/L; Status: F Test: ABG O2 SATURATION; Value: 96.6; Range: 95.0-99.0; Units: %; Status: F Test: ABG DEVICE; Value: NASAL ANMOL; Status: F Lab Order: Acetaminophen Level; SPEC'M 06/17/16 18:43 Test: ACETAMINOPHEN LEVEL; Value: < 2.0; Range: 10.0-30.0; Abnormal: Below low normal; Units: UG/ML; Status: F Lab Order: Basic Metabolic Profile; SPEC'M 06/17/16 18:43 Test: GLUCOSE, FASTING; Value: 134; Range: 70-105; Abnormal: Above high normal; Units: MG/DL; Status: F Test: BLOOD UREA NITROGEN; Value: 5; Range: 7-18; Abnormal: Below low normal; Units: MG/DL; Status: F Test: CREATININE FOR GFR; Value: 0.97; Range: 0.55-1.02; Units: MG/DL; Status: F Test: SODIUM LEVEL; Range: 136-145; Units: MEQ/L; Status: I Test: POTASSIUM SERUM; Range: 3.5-5.1; Units: MEQ/L; Status: I Test: CHLORIDE LEVEL; Range: 98-107; Units: MEQ/L; Status: I Test: CARBON DIOXIDE LEVEL; Range: 21-32; Units: MEQ/L; Status: I Test: ANION GAP; Range: 8-16; Units: MEQ/L; Status: I Test: CALCIUM LEVEL; Range: 8.5-10.1; Units: MG/DL; Status: I Test: GLOMERULAR FILTRATION RATE; Value: > 60.0; Range: >60; Status: F Test: SODIUM LEVEL; Value: 137; Range: 136-145; Units: MEQ/L; Status: F Test: POTASSIUM SERUM; Value: 3.2; Range: 3.5-5.1; Abnormal: Below low normal; Units: MEQ/L; Status: F Test: CHLORIDE LEVEL; Value: 101; Range: 98-107; Units: MEQ/L; Status: F Test: CARBON DIOXIDE LEVEL; Value: 25; Range: 21-32; Units: MEQ/L; Status: F Test: ANION GAP; Value: 11; Range: 8-16; Units: MEQ/L; Status: F Test: CALCIUM LEVEL; Value: 8.3; Range: 8.5-10.1; Abnormal: Below low normal; Units: MG/DL; Status: F Test Note: ; Units are mL/min/1.73 m2 Chronic Kidney Disease Staging per NKF: Stage I & II GFR >=60 Normal to Mildly Decreased Stage III GFR 30-59 Moderately Decreased Stage IV GFR 15-29 Severely Decreased Stage V GFR <15 Very Little GFR Left ESRD GFR <15 on AUTOMATIC STEEL TIE ADJUSTER Lab Order: Complete Blood Count; [facility] 06/17/16 18:43 Test: WHITE BLOOD COUNT; Value: 29.4; Range: 4.0-10.0; Abnormal: Above high normal; Units: K/mm3; Status: F Test: RED BLOOD COUNT; Value: 4.13; Range: 4.00-5.40; Units: M/mm3; Status: F Test: HEMOGLOBIN; Value: 11.8; Range: 12.0-16.0; Abnormal: Below low normal; Units: g/dl; Status: F Test: HEMATOCRIT; Value: 34.3; Range: 36.0-47.0; Abnormal: Below low normal; Units: %; Status: F Test: MEAN CORPUSCULAR VOLUME; Value: 83.1; Range: 80.0-96.0; Units: fl; Status: F Test: MEAN CORPUSCULAR HEMOGLOBIN; Value: 28.5; Range: 27.0-33.0; Units: pg; Status: F Test: MEAN CORPUSCULAR HGB CONC; Value: 34.3; Range: 32.0-36.5; Units: g/dl; Status: F Test: RED CELL DISTRIBUTION WIDTH; Value: 13.0; Range: 11.5-14.5; Units: %; Status: F Test: PLATELET COUNT, AUTOMATED; Value: 242; Range: 150-450; Units: k/mm3; Status: F Lab Order: Drug Eval Toxicology ED Only; SPEC'M 06/17/16 19:39 Test: AMPHETAMINES LEVEL URINE; Value: NEGATIVE; Range: NEGATIVE; Status: F Test: BARBITURATES URINE; Value: NEGATIVE; Range: NEGATIVE; Status: F Test: BENZODIAZEPINES URINE; Value: NEGATIVE; Range: NEGATIVE; Status: F Test: CANNABINOIDS URINE; Value: POSITIVE; Range: NEGATIVE; Abnormal: Above high normal; Status: F Test: COCAINE METABOLITE URINE; Value: POSITIVE; Range: NEGATIVE; Abnormal: Above high normal; Status: F Test: METHADONE URINE; Value: NEGATIVE; Range: NEGATIVE; Status: F Test: OPIATES URINE; Value: POSITIVE; Range: NEGATIVE; Abnormal: Above high normal; Status: F Test: TRICYCLIC ANTIDEPRESS URINE; Value: NEGATIVE; Range: NEGATIVE; Status: F Test Note: ; FALSE POSITIVE RESULTS CAN BE CAUSED BY THE USE OF PANTOPRAZOLE (PROTONIX). Lab Order: Ethyl Alcohol (ethanol); SPEC'M 06/17/16 18:43 Test: ETHYL ALCOHOL (ETHANOL); Value: 0.003; Range: 0.000-0.010; Units: %; Status: F Lab Order: HCG,Serum Qualitative; SPEC'M 06/17/16 18:43 Test: HCG, SERUM QUALITATIVE; Value: NEGATIVE; Range: NEGATIVE; Status: F Lab Order: Liver Profile; SPEC'M 06/17/16 18:43 Test: AST/SGOT; Value: 29; Range: 15-37; Units: U/L; Status: F Test: ALT/SGPT; Value: 32; Range: 12-78; Units: U/L; Status: F Test: ALKALINE PHOSPHATASE; Value: 78; Range: 45-117; Units: U/L; Status: F Test: BILIRUBIN,TOTAL; Value: 0.7; Range: 0.2-1.0; Units: MG/DL; Status: F Test: BILIRUBIN,DIRECT; Value: 0.3; Range: 0.0-0.2; Abnormal: Above high normal; Units: MG/DL; Status: F Test: TOTAL PROTEIN; Value: 7.0; Range: 6.4-8.2; Units: GM/DL; Status: F Test: ALBUMIN; Value: 3.4; Range: 3.2-5.2; Units: GM/DL; Status: F Test: ALBUMIN/GLOBULIN RATIO; Value: 0.94; Range: 1.00-1.93; Abnormal: Below low normal; Status: F Lab Order: Salicylate Level; [facility] 06/17/16 18:43 Test: SALICYLATE LEVEL; Value: 1.9; Range: 5.0-30.0; Abnormal: Below low normal; Units: MG/DL; Status: F Lab Order: Thyroid Stimulating Hormone; [facility] 06/17/16 18:43 Test: THYROID STIMULATING HORMONE; Value: 0.117; Range: 0.358-3.740; Abnormal: Below low normal; Units: uIU/ML; Status: F Lab Order: Lactic Acid (Woody tube on ice); [facility] 06/17/16 18:43 Test: LACTIC ACID LEVEL, LACTATE; Value: 1.1; Range: 0.4-2.0; Units: MMOL/L; Status: F Lab Order: -Blood Culture; [facility] 06/17/16 18:43 Test: BLOOD CULTURE; Value: No growth after 24 hours . All specimens observed; Status: F Test: BLOOD CULTURE; Value: for 7 days. Results final at that time.; Status: F Lab Order: BLOOD CULTURES; [facility] 06/17/16 18:43 Test: BLOOD CULTURE; Value: No growth after 24 hours . All specimens observed; Status: F Test: BLOOD CULTURE; Value: for 7 days. Results final at that time.; Status: F Lab Order: UA; [facility] 06/17/16 19:39 Test: APPEARANCE, URINE; Value: CLEAR; Range: CLEAR; Status: F Test: COLOR, URINE; Value: STRAW; Range: YELLOW; Status: F Test: PH,URINE; Value: 7.0; Range: 5.0-9.0; Units: UNITS; Status: F Test: SPECIFIC GRAVITY URINE AUTO; Value: 1.001; Range: 1.002-1.035; Abnormal: Below low normal; Status: F Test: PROTEIN, URINE AUTO; Value: NEGATIVE; Range: NEGATIVE; Units: mg/dL; Status: F Test: GLUCOSE, URINE (UA) AUTO; Value: NEGATIVE; Range: NEGATIVE; Units: mg/dL; Status: F Test: KETONE, URINE AUTO; Value: NEGATIVE; Range: NEGATIVE; Units: mg/dL; Status: F Test: UROBILINOGEN, URINE AUTO; Value: 0.2; Range: 0.0-2.0; Units: mg/dL; Status: F Test: BILIRUBIN, URINE AUTO; Value: NEGATIVE; Range: NEGATIVE; Status: F Test: NITRITE, URINE AUTO; Value: NEGATIVE; Range: NEGATIVE; Status: F Test: LEUKOCYTE ESTERASE, URINE AUTO; Value: 1+; Range: NEGATIVE; Abnormal: Above high normal; Status: F Test: BLOOD, URINE BLOOD; Value: 1+; Range: NEGATIVE; Abnormal: Above high normal; Status: F Test: WBC, URINE AUTO; Value: 1; Range: 0-3; Units: /HPF; Status: F Test: RBC, URINE AUTO; Value: 0; Range: 0-3; Units: /HPF; Status: F Test: BACTERIA, URINE AUTO; Value: 1+; Range: NEGATIVE; Abnormal: Above high normal; Status: F Test: SQUAMOUS EPITHELIAL CELL UR AU; Value: 1; Range: 0-6; Units: /HPF; Status: F Test: HYALINE CAST, URINE AUTO; Value: 0; Range: 0-1; Units: /LPF; Status: F Test: AMORPHOUS SEDIMENT; Value: SMALL; Range: NEGATIVE; Abnormal: Above high normal; Status: F Lab Order: Urine Culture; SPEC'M 06/17/16 19:39 Test: URINE CULTURE; Value: <EXTERNAL COMMENT eCWMed> FULL REPORT IN LAB NOTES (eCW and Medent).; Status: F Test: URINE CULTURE; Value: URINE CULTURE RESULT NO GROWTH CLINICAL SIGNIFICANCE 1 ORGANISM; Status: F Lab Order: -Influenza A&B Rapid Antigen - Nose; SPEC'M 06/17/16 19:56 Test: INFLUENZA A RAPID SCR by ICA; Value: INFLUENZA A RESULTS NEGATIVE; Status: F Test: INFLUENZA A RAPID SCR by ICA; Value: Comments:; Status: F Test: INFLUENZA B RAPID SCR by ICA; Value: INFLUENZA B RESULTS NEGATIVE; Status: F Test Note: ; The Influenza test is a direct rapid immunoassay for the qualitative detection of Influenza viral antigen. Cell culture (Viral Culture) testing should be considered to confirm NEGATIVE results and to assist in detecting other viruses that can provide similar clinical symptoms. Please contact the lab within 24 hours ([phone]) if confirmatory testing is desired. Lab Order: ESR; [facility] 06/17/16 18:43 Test: ERYTHROCYTE SEDIMENTATION RATE; Value: 47; Range: 0-20; Abnormal: Above high normal; Units: mm/hr; Status: F Lab Order: C REACTIVE PROTEIN QUANTITATIV; [facility] 06/17/16 18:43 Test: C REACTIVE PROTEIN QUANTITATIV; Value: 10.90; Range: 0.00-0.30; Abnormal: Above high normal; Units: MG/DL; Status: F Lab Order: C REACTIVE PROTEIN QUANTITATIV; [facility] 06/18/16 07:39 Test: C REACTIVE PROTEIN QUANTITATIV; Value: 12.10; Range: 0.00-0.30; Abnormal: Above high normal; Units: MG/DL; Status: F Lab Order: ERYTHROCYTE SEDIMENTATION RATE; [facility] 06/18/16 07:39 Test: ERYTHROCYTE SEDIMENTATION RATE; Value: 48; Range: 0-20; Abnormal: Above high normal; Units: mm/hr; Status: F Lab Order: CBC WITH DIFFERENTIAL; [facility] 06/18/16 07:39 Test: WHITE BLOOD COUNT; Value: 20.1; Range: 4.0-10.0; Abnormal: Above high normal; Units: K/mm3; Status: F Test: RED BLOOD COUNT; Value: 4.22; Range: 4.00-5.40; Units: M/mm3; Status: F Test: HEMOGLOBIN; Value: 11.4; Range: 12.0-16.0; Abnormal: Below low normal; Units: g/dl; Status: F Test: HEMATOCRIT; Value: 35.8; Range: 36.0-47.0; Abnormal: Below low normal; Units: %; Status: F Test: MEAN CORPUSCULAR VOLUME; Value: 84.9; Range: 80.0-96.0; Units: fl; Status: F Test: MEAN CORPUSCULAR HEMOGLOBIN; Value: 27.1; Range: 27.0-33.0; Units: pg; Status: F Test: MEAN CORPUSCULAR HGB CONC; Value: 32.0; Range: 32.0-36.5; Units: g/dl; Status: F Test: RED CELL DISTRIBUTION WIDTH; Value: 14.4; Range: 11.5-14.5; Units: %; Status: F Test: PLATELET COUNT, AUTOMATED; Value: 206; Range: 150-450; Units: k/mm3; Status: F Test: NEUTROPHILS %; Value: 92.4; Range: 36.0-66.0; Abnormal: Above high normal; Units: %; Status: F Test: LYMPH %; Value: 4.6; Range: 24.0-44.0; Abnormal: Below low normal; Units: %; Status: F Test: MONO %; Value: 2.1; Range: 0.0-5.0; Units: %; Status: F Test: EOS %; Value: 0.2; Range: 0.0-3.0; Units: %; Status: F Test: BASO %; Value: 0.4; Range: 0.0-1.0; Units: %; Status: F Test: LARGE UNSTAINED CELL %; Value: 0.3; Range: 0.0-4.0; Units: %; Status: F Test: NEUTROPHILS #; Value: 18.6; Range: 1.8-7.7; Abnormal: Above high normal; Units: K/mm3; Status: F Test: LYMPH #; Value: 1.0; Range: 1.5-6.5; Abnormal: Below low normal; Units: K/mm3; Status: F Test: MONO #; Value: 0.4; Range: 0.0-0.8; Units: K/mm3; Status: F Test: EOS #; Value: 0.0; Range: 0.0-0.50; Units: K/mm3; Status: F Test: BASO #; Value: 0.1; Range: 0.0-0.2; Units: K/mm3; Status: F Test: LARGE UNSTAINED CELL #; Value: 0.1; Range: 0.0-0.4; Units: K/mm3; Status: F Lab Order: BASIC METABOLIC PROFILE; SPEC'M 06/18/16 07:39 Test: GLUCOSE, FASTING; Value: 102; Range: 70-105; Units: MG/DL; Status: F Test: BLOOD UREA NITROGEN; Value: 5; Range: 7-18; Abnormal: Below low normal; Units: MG/DL; Status: F Test: CREATININE FOR GFR; Value: 0.59; Range: 0.55-1.02; Units: MG/DL; Status: F Test: GLOMERULAR FILTRATION RATE; Value: > 60.0; Range: >60; Status: F Test: SODIUM LEVEL; Value: 146; Range: 136-145; Abnormal: High; Units: MEQ/L; Status: F Test: POTASSIUM SERUM; Value: 3.9; Range: 3.5-5.1; Abnormal: Delta; Units: MEQ/L; Status: F Test: CHLORIDE LEVEL; Value: 112; Range: 98-107; Abnormal: Above high normal; Units: MEQ/L; Status: F Test: CARBON DIOXIDE LEVEL; Value: 25; Range: 21-32; Units: MEQ/L; Status: F Test: ANION GAP; Value: 9; Range: 8-16; Units: MEQ/L; Status: F Test: CALCIUM LEVEL; Value: 8.5; Range: 8.5-10.1; Units: MG/DL; Status: F Test Note: ; Units are mL/min/1.73 m2 Chronic Kidney Disease Staging per NKF: Stage I & II GFR >=60 Normal to Mildly Decreased Stage III GFR 30-59 Moderately Decreased Stage IV GFR 15-29 Severely Decreased Stage V GFR <15 Very Little GFR Left ESRD GFR <15 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 The estimated sensitivity of this antigen/antibody combination assay for HIV-1 infection is 99.9%. The overall specificity is 99.6%. Lab Order: HEPATITIS PROFILE; SPEC'M 06/18/16 07:39 Test: HEPATITIS C VIRUS SERGEY INDEX; Range: <0.8; Units: INDEX; Status: I Test: HEPATITIS B SURFACE ANTIGEN; Range: NEGATIVE; Status: I Test: HEPATITIS B CORE ANTIBODY IGM; Range: NEGATIVE; Status: I Test: HEPATITIS A ANTIBODY IGM; Range: NEGATIVE; Status: I Lab Order: MAGNESIUM LEVEL; [facility] 06/17/16 18:43 Test: MAGNESIUM LEVEL; Value: 1.6; Range: 1.8-2.4; Abnormal: Below low normal; Units: MG/DL; Status: F Lab Order: DIFFERENTIAL; [facility] 06/17/16 18:43 Test: PLATELET ESTIMATE; Range: NORMAL; Status: I Test: NEUTROPHILS; Value: 87; Range: 35-75; Abnormal: Above high normal; Units: %; Status: F Test: BANDS; Value: 2; Range: < 11; Units: %; Status: F Test: LYMPHOCYTES; Value: 7; Range: 16-52; Abnormal: Below low normal; Units: %; Status: F Test: MONOCYTES; Value: 3; Range: 0-8; Units: %; Status: F Test: BASOPHILS; Value: 1; Range: 0-4; Units: %; Status: F Test: RBC MORPHOLOGY; Value: NORMAL; Status: F Test: PLATELET ESTIMATE; Value: NORMAL; Range: NORMAL; Status: F Lab Order: FREE T4; [facility] 06/17/16 18:43 Test: FREE T4; Value: 1.51; Range: 0.76-1.46; Abnormal: Above high normal; Units: NG/DL; Status: F Lab Order: MAGNESIUM LEVEL; [facility] 06/18/16 07:39 Test: MAGNESIUM LEVEL; Value: 2.0; Range: 1.8-2.4; Units: MG/DL; Status: F Lab Order: VANCOMYCIN LEVEL TROUGH; [facility] 06/18/16 14:57 Test: VANCOMYCIN LEVEL TROUGH; Value: 11.5; Range: 10.0-20.0; Units: UG/ML; Status: F Lab Order: BASIC METABOLIC PROFILE; [facility] 06/18/16 14:57 Test: GLUCOSE, FASTING; Value: 150; Range: 70-105; Abnormal: Above high normal; Units: MG/DL; Status: F Test: BLOOD UREA NITROGEN; Value: 5; Range: 7-18; Abnormal: Below low normal; Units: MG/DL; Status: F Test: CREATININE FOR GFR; Value: 0.77; Range: 0.55-1.02; Units: MG/DL; Status: F Test: GLOMERULAR FILTRATION RATE; Value: > 60.0; Range: >60; Status: F Test: SODIUM LEVEL; Value: 145; Range: 136-145; Units: MEQ/L; Status: F Test: POTASSIUM SERUM; Value: 3.1; Range: 3.5-5.1; Units: MEQ/L; Status: F Test: CHLORIDE LEVEL; Value: 110; Range: 98-107; Abnormal: Above high normal; Units: MEQ/L; Status: F Test: CARBON DIOXIDE LEVEL; Value: 23; Range: 21-32; Units: MEQ/L; Status: F Test: ANION GAP; Value: 12; Range: 8-16; Units: MEQ/L; Status: F Test: CALCIUM LEVEL; Value: 8.4; Range: 8.5-10.1; Abnormal: Below low normal; Units: MG/DL; Status: F Test Note: ; Units are mL/min/1.73 m2 Chronic Kidney Disease Staging per NKF: Stage I & II GFR >=60 Normal to Mildly Decreased Stage III GFR 30-59 Moderately Decreased Stage IV GFR 15-29 Severely Decreased Stage V GFR <15 Very Little GFR Left ESRD GFR <15 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[employer]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 Radiology Order: EKG-ADULT Test: EKG-ADULT REASON FOR EXAMINATION: fever, sob; Stationary ECG Study; [facility] - ED; ; Test Date: 2016-06-17; Pat Name: MILY PAGAN Department:; Room: -; Gender: F [employer]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 The heart is normal in size. The pulmonary vasculature is; normal in appearance.; ; Impression: No acute disease.; ; ; Signed by; Victor Manuel Ramirez MD 06/17/2016 07:20 P; Outcome: 19:23 Decision to Hospitalize by Provider. ml 22:00 Discharge Assessment: Patient awake, alert and oriented x 3. No cognitive and/or cf2 functional deficits noted. Patient verbalized understanding of disposition instructions. Patient awake and alert. Oriented to person, place and time. Patient verbalized understanding of disposition instructions. patient administered narcotics - no. The following High Risk Discharge criteria are identified: None. Admitted ER hold admission. Condition: stable. Property :Personal belongings accompany Pt. 06/18 00:53 No special radiology studies were completed. cf2 19:45 Discharge Assessment: Patient awake, alert and oriented x 3. No cognitive and/or nn1 functional deficits noted. Patient verbalized understanding of disposition instructions. Admitted to PCU accompanied by nurse, accompanied by tech, via stretcher, on monitor, with chart. Admission hand-off: Report called to Jessica Forrester RN. Property :Personal belongings accompany Pt. 19:56 Patient left the ED. nn1 Signatures: Dispatcher [employer] EDMS Ludwin Wiley MD MD ml Sleeman, Kacey, RN RN kcs Summer Chung, Outreach Rep Unit deg Barnhardt, Edith, Reg Reg gb Dee, Montez, JOINT CUTTER MACHINE JOINT CUTTER MACHINE [id number] Chyna Cooper, JOINT CUTTER MACHINE JOINT CUTTER MACHINE carol Baltazar Albarran js11 Amirah Vizcaino, JOINT CUTTER MACHINE JOINT CUTTER MACHINE tmm1 Bryce Stoddard, JOINT CUTTER MACHINE JOINT CUTTER MACHINE jlf Petra Muhammad, Outreach Rep Unit [facility] Kianna RodriguezRN RN [id number] Yolande Hong,RN RN nn1 Amalia Duran,YNES RN kc3 Samantha Costello Kim, RN RN kas2 Paty Martinez,RN RN cf2 Corrections: (The following items were deleted from the chart) 06/17 18:15 17:59 BP 116 / 57; Pulse 104bpm; Resp 20bpm; Pulse Ox 92%; Temp 103.1F Oral; 58.97 kg; jlf Height 5 ft. 7 in.; BMI: 20.3; Pain 10/10; jlf 19:39 19:36 C REACTIVE PROTEIN QUANTITATIV+LAB sent. js15 EDMS Chart Complete MTDD
[2016-06-21] MEDS: SLF 3 ML SYR IV SCH (05:14)
[2016-06-21 05:50] VITALS: BP 140/80
[2016-06-21] MEDS: KETOROLAC 30 MG/ML VIAL (J1885) IV PRN ×2 (06:04→12:35)
[2016-06-21 06:34] LABS: ANION GAP 11 MEQ/L (8-16); BLOOD UREA NITROGEN 6 MG/DL (7-18); CALCIUM LEVEL 8.7 MG/DL (8.5-10.1); CARBON DIOXIDE LEVEL 27 MEQ/L (21-32); CHLORIDE LEVEL 103 MEQ/L (98-107); CREATININE FOR GFR 0.62 MG/DL (0.55-1.02); GLOMERULAR FILTRATION RATE > 60.0 (>60); GLUCOSE, FASTING 78 MG/DL (70-105); SODIUM LEVEL 141 MEQ/L (136-145)
[2016-06-21] MEDS: IPRATROPIUM 0.5MG/ALBUTEROL 2.5MG INH SOL UD 3ML (DUONEB)(J7620) NEB SCH ×2 (07:19→11:10)
[2016-06-21 07:33] LABS: MEAN CORPUSCULAR VOLUME 86.7 fl (80.0-96.0); WHITE BLOOD COUNT 7.4 K/mm3 (4.0-10.0)
[2016-06-21 07:34] LABS: DIFF SLIDE NUMBER 22; MEAN CORPUSCULAR HEMOGLOBIN 27.3 pg (27.0-33.0); MEAN CORPUSCULAR HGB CONC 31.5 g/dl (32.0-36.5); PLATELET COUNT, AUTOMATED 200 k/mm3 (150-450)
[2016-06-21] MEDS ORDERED: LEVA500T PO (07:44)
[2016-06-21 08:36] LABS: EOSINOPHILS 3 % (0-5); PLATELET CLUMPS SMALL AMT
[2016-06-21] MEDS: ENOXAPARIN 40 MG/0.4 ML SYRINGE (J1650) SC SCH (09:00)
[2016-06-21] MEDS: AZITHROMYCIN 250 MG TAB PO SCH (09:14)
[2016-06-21] MEDS: SENOKOT S TAB PO SCH (09:15)
[2016-06-21] MEDS: METHADONE 10 MG TAB (S0109) PO SCH (09:15)
[2016-06-21] MEDS: NICOTINE 14 MG/24 HR TRANSDERMAL TD SCH (10:05)
[2016-06-21 10:56] VITALS: BP 140/80
[2016-06-21] MEDS ORDERED: METHADONE 10 MG TAB (S0109) PO ONE (13:15)
--- NOTE | 2016-06-21 16:06 | DS.PDOC ---
Discharge Summary General Date of Admission Jun 17, 2016 at 19:52 Date of Discharge Jun 21, 2016 at 13:55 Specialist/Consultants Involve Dr. Valenzuela of Psychiatry Discharge Summary PROCEDURES PERFORMED DURING STAY: None. COMPLICATIONS/CHIEF COMPLAINT: Pneumonia ADMISSION DIAGNOSES: 1. . Left lower lobe pneumonia 2. . Multiple illicit drug use 3. . DISCHARGE DIAGNOSES: 1. . Left lower lobe pneumonia 2. . Multiple illicit drug use 3. . HISTORY OF PRESENT ILLNESS: 20-year-old female with past medical history notable for illicit drug use presented to the ER after she had not been feeling well for a few days. According to the patient, and her boyfriend who was with the patient, the patient has had a fever and a cough without productive sputum over the previous few days before presenting to the ER. The patient states that she has continued to do IV drugs during this time. She reports that she does 4 bags of IV heroin a day for the past several years. On this occasion, the patient states that she took the same amount of IV drugs that she usually uses and started to feel more lethargic and tired. The patient came in to the ER for further evaluation and management of her symptoms. During the patient's hospitalization, a CT scan of the chest was ordered and revealed that the patient had a large dense infiltrate in the left lower lobe consistent with pneumonia. The patient was treated with IV Rocephin and azithromycin initially and then transitioned to by mouth Levaquin. During this time, the patient states that her respiratory status has improved significantly. Of note, the patient's influenza and respiratory panel were negative. Her blood cultures were negative 4. She did have 1 positive blood culture which was notable for gram-positive rods preliminarily, but this was felt to be a dominant. A 2-D echo was done and did not reveal any obvious vegetations. The patient has remained afebrile here. Also, the patient's white blood cell count has trended down appropriately and is now within normal limits. Of note, given the patient's history of IV drug abuse and a question of possible accidental overdose, I did specifically ask the patient if she had any feelings of suicidal or homicidal ideations, or any feelings of depression. The patient denied any of these symptoms. She denied a history of any suicide attempts or any depression. In addition, I did ask the patient's boyfriend who witnessed this event if there appeared to be any intent for the patient to overdose, and he denied the same. I did reach out to our psychiatry Department ( Dr. Valenzuela) and discussed the case with him regarding possible evaluation for inpatient psychiatry commitment and he did not feel that the patient met any criteria to be admitted given the fact that patient did not have any intent to overdose based on the history presented. I did offer the patient multiple options for rehabilitation including outpatient and inpatient. At this time, the patient states that she is going to follow-up with the [facility] methadone rehabilitation program. In addition, I did speak with the patient's mother Sasha about this. We have sent over records to the methadone rehabilitation program so that the patient can get initiated on Friday. DISCHARGE MEDICATIONS: Please see below. ALLERGIES: Please see below. PHYSICAL EXAMINATION ON DISCHARGE: VITAL SIGNS: Please see below. General Exam: Positive: Alert, Cooperative, No Acute Distress ENT Exam: Positive: Atraumatic, Mucous membr. moist/pink Neck Exam: Negative: JVD Chest Exam: Positive: Clear to auscultation, Negative: Rales, Rhonchi, Wheezing Heart Exam: Positive: Normal S1, Normal S2, Rate Normal Abdomen Exam: Positive: Soft, Negative: Tenderness Extremity Exam: Negative: Edema, Tenderness LABORATORY DATA: Please see below. IMAGING: CT pulmonary angiogram: With IV contrast. History: Shortness of breath. Question pulmonary embolism. Comparison studies: Comparison chest x-ray June 17, 2016. Contrast dose: 75 cc's of Isovue [address] technique: Helical scanning is acquired and overlapping 1.5 mm and contiguous 3 mm axial images are reformatted. In addition, a 3-D work station is deployed to generate thick slab maximum intensity projection images in sagittal and coronal imaging projections. CT pulmonary angiographic findings: There is good opacification of the pulmonary arterial tree. There is no CT evidence of pulmonary embolism. Maximum intensity projection images show no filling defect or vessel cutoff. The thoracic aorta is normal in coarse, contour, and homogeneous in contrast enhancement. No evidence of dissection or aneurysm seen. There is no evidence of pericardial effusion. There is a small quantity of left pleural fluid. There is a large infiltrate in the left lower lobe with some partial atelectasis in the basilar segments of the left lower lobe. Discoid atelectasis is seen in the right lower lobe as well. The infiltrate in the left lower lobe extends to the superior segment and is compatible with pneumonia. Visualized upper abdominal structures are unremarkable. No bony destructive lesion is seen. Impression: Large dense infiltrate left lower lobe consistent with pneumonia. Small left pleural effusion. No CT evidence of pulmonary embolism. Otherwise unremarkable. VTE Prophylaxis ordered?: Yes DISCHARGE CONDITION: Medically stable DISPOSITION: 01 Home, Self-Care ACTIVITY: As tolerated DIET: Regular diet ITEMS TO FOLLOWUP ON OUTPATIENT: 1. . Follow with PCP appointment made for her in June at the resident clinic. We did explain to the patient that it is imperative that she follow-up with this clinic as she has had 6 no-shows to the clinic in the past. We have told her that she is in danger of being discharged from the practice if she does not keep her appointments or follow-up with rescheduling. 2. . Follow-up at [facility] rehab program next week 3. . TIME SPENT ON DISCHARGE: Greater than 30 minutes. Vital Signs/I&Os Vital Signs Date Time Temp Pulse Resp B/P Pulse Ox O2 Delivery O2 Flow Rate FiO2 06/21/16 13:15 18 Room Air 06/21/16 10:56 96.6 84 140/80 94 I&O- Last 24 Hours up to 6 AM 06/21/16 06:00 Intake Total 2100 ml Output Total 3850 ml Balance -1750 ml Laboratory Data Labs 24H Laboratory Tests 2 06/21/16 05:40: Anion Gap 11, Blood Urea Nitrogen 6L, Creatinine 0.62, Sodium Level 141, Potassium Level 4.0, Chloride Level 103, Carbon Dioxide Level 27, Calcium Level 8.7, Clumped Platelets SMALL AMT, Eosinophils (Manual) 3, Glomerular Filtration Rate > 60.0, Lymphocytes (Manual) 37, Monocytes (Manual) 6, Neutrophils 54, Platelet Estimate NORMAL, Red Blood Cell Morphology NORMAL CBC/BMP Laboratory Tests 06/21/16 05:40 Calcium Level 8.7, Red Blood Count 4.99, Mean Corpuscular Volume 86.7, Mean Corpuscular Hemoglobin 27.3, Mean Corpuscular Hemoglobin Concent 31.5 L, Red Cell Distribution Width 13.0 Microbiology Microbiology 06/19/16 Blood Culture - Preliminary, Resulted No Growth after 48 hours. All Specime... 06/19/16 Blood Culture - Preliminary, Resulted No Growth after 48 hours. All Specime... 06/17/16 Blood Culture - Preliminary, Resulted 1/23/17 Blood Culture - Preliminary, Resulted No Growth after 72 hours. All specime... 06/17/16 Blood Culture - Preliminary, Resulted No Growth after 72 hours. All specime... 06/19/16 Respiratory Virus Panel (PCR) ([facility]) - Final, Complete 06/17/16 Influenza Virus Type A Antigen - Final, Complete 06/17/16 Influenza Virus Type B Antigen - Final, Complete 06/17/16 Urine Culture - Final, Complete Medications Scheduled Levofloxacin Hemihydrate (Levaquin) 500 Mg Tab 500 MG PO DAILY Allergies Coded Allergies: No Known Allergies (Unverified , 03/31/14) IGNACIO TOBAR MD Jun 21, 2016 16:05
== END 2016-06-21 13:55 | disposition home or self-care (01) | DRG 816 ==
LOC: M ED 17:48 → M ED INP 19:52 → M PCU 06-18 20:02 → M MSPAV 06-19 14:20
PROVIDERS: ADMIT Internal Medicine; ATTEND Hospitalist
DX: T40.1X1A Poisoning by heroin, accidental (unintentional), initial encounter (principal); J18.9 Pneumonia, unspecified organism; F11.20 Opioid dependence, uncomplicated; F17.200 Nicotine dependence, unspecified, uncomplicated; E87.6 Hypokalemia; B19.20 Unspecified viral hepatitis C without hepatic coma

== ENCOUNTER 2016-10-23 18:56 | Emergency (ER) | payer MEDICAID, OTHER, SELFPAY ==
[~2016-10-23 18:56] MED LIST changes: +LEVA500T PO
[2016-10-23] MEDS ORDERED: NALOXONE INJ 2 MG/2 ML SYRINGE (J2310) IV STA (19:13)
[2016-10-23] MEDS ORDERED: MUPIROCIN 2% OINT 22 GM TUBE TOP ONE (20:00)
[2016-10-23 21:22] VITALS: BP 96/56
--- NOTE | 2016-10-24 09:04 | ECGEPIP ---
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
== END 2016-10-23 21:24 | disposition home or self-care (01) ==
LOC: M ED 19:11
DX: T40.1X1A Poisoning by heroin, accidental (unintentional), initial encounter (principal); X58.XXXA Exposure to other specified factors, initial encounter; Y92.89 Other specified places as the place of occurrence of the external cause; Y93.89 Activity, other specified; Y99.9 Unspecified external cause status; F41.9 Anxiety disorder, unspecified; F32.9 Major depressive disorder, single episode, unspecified; F11.10 Opioid abuse, uncomplicated; M54.9 Dorsalgia, unspecified; F17.200 Nicotine dependence, unspecified, uncomplicated
CPT/HCPCS: 93005; 96374; 99285; J2310

== ENCOUNTER 2016-11-09 22:05 | Emergency (ER) | payer MEDICAID, SELFPAY ==
[~2016-11-09] VITALS: Ht 170.2 cm; Wt 57.1 kg
[2016-11-09 22:05] VITALS: BP 123/85
[~2016-11-09 22:05] MED LIST changes: +LEVA1TAB2 PO; -LEVA500T PO
== END 2016-11-10 02:28 | disposition left against medical advice (07) ==
LOC: M ED 23:35
DX: Z53.29 Procedure and treatment not carried out because of patient's decision for other reasons (principal)

== ENCOUNTER 2016-11-19 16:01 | Emergency (ER) | payer MEDICAID ==
[~2016-11-19] VITALS: Ht 172.7 cm; Wt 57.5 kg
[2016-11-19 16:01] VITALS: BP 111/73
[2016-11-19] MEDS ORDERED: BACT800T5 PO (16:34)
[2016-11-19] MEDS ORDERED: BACTRIM 160MG/800MG DS TAB PO ONE (16:45)
== END 2016-11-19 16:46 | disposition home or self-care (01) ==
LOC: M ED 16:01
DX: L03.114 Cellulitis of left upper limb (principal); G43.909 Migraine, unspecified, not intractable, without status migrainosus; F17.210 Nicotine dependence, cigarettes, uncomplicated; F14.10 Cocaine abuse, uncomplicated

== ENCOUNTER 2016-11-24 00:04 | Emergency (ER) | payer MEDICAID, OTHER, SELFPAY ==
[~2016-11-24] VITALS: Ht 172.7 cm; Wt 57.3 kg
[~2016-11-24 00:04] MED LIST changes: +BACT800T5 PO
[2016-11-24 00:05] VITALS: BP 153/92
== END 2016-11-24 02:03 | disposition left against medical advice (07) ==
LOC: M ED 00:04
DX: R21 Rash and other nonspecific skin eruption (principal); Z53.29 Procedure and treatment not carried out because of patient's decision for other reasons

== ENCOUNTER 2017-02-08 02:46 | Emergency (ER) | payer OTHER ==
[2017-02-08] MEDS ORDERED: NALOXONE INJ 2 MG/2 ML SYRINGE (J2310) IV STA (02:54)
[2017-02-08] MEDS ORDERED: NALOXONE INJ 2 MG/2 ML SYRINGE (J2310) ONE (03:00)
[2017-02-08] MEDS ORDERED: NALOXONE INJ 2 MG/2 ML SYRINGE (J2310) IM STA ×2 (03:08→07:32)
[2017-02-08] MEDS ORDERED: NS 1,000 ML IV ONE (03:15)
[2017-02-08 03:31] LABS: CONTROL LINE HCG INT CTR LINE PRESENT
[2017-02-08 03:34] LABS: BASO # 0.1 K/mm3 (0.0-0.2); BASO % 1.1 % (0.0-1.0); EOS # 0.3 K/mm3 (0.0-0.50); EOS % 2.9 % (0.0-3.0); LARGE UNSTAINED CELL # 0.3 K/mm3 (0.0-0.4); LARGE UNSTAINED CELL % 2.7 % (0.0-4.0); LYMPH % 38.5 % (24.0-44.0); MEAN CORPUSCULAR HEMOGLOBIN 28.2 pg (27.0-33.0); MEAN CORPUSCULAR HGB CONC 32.5 g/dl (32.0-36.5); MEAN CORPUSCULAR VOLUME 86.9 fl (80.0-96.0); MONO # 0.7 K/mm3 (0.0-0.8); MONO % 7.4 % (0.0-5.0); NEUTROPHILS # 4.7 K/mm3 (1.8-7.7); NEUTROPHILS % 47.4 % (36.0-66.0); PLATELET COUNT, AUTOMATED 256 k/mm3 (150-450); RED CELL DISTRIBUTION WIDTH 14.1 % (11.5-14.5); WHITE BLOOD COUNT 9.8 K/mm3 (4.0-10.0)
[2017-02-08 03:53] LABS: OSMOLALITY SERUM 286 MOSM/KG (275-295)
[2017-02-08 04:10] LABS: METHADONE URINE NEGATIVE (NEGATIVE)
[2017-02-08 04:14] LABS: ALBUMIN 3.5 GM/DL (3.2-5.2); ALBUMIN/GLOBULIN RATIO 0.85 (1.00-1.93); ALKALINE PHOSPHATASE 68 U/L (45-117); ALT/SGPT 60 U/L (12-78); ANION GAP 9 MEQ/L (8-16); AST/SGOT 46 U/L (15-37); BILIRUBIN,DIRECT < 0.1 MG/DL (0.0-0.2); BILIRUBIN,TOTAL 0.3 MG/DL (0.2-1.0); BLOOD UREA NITROGEN 9 MG/DL (7-18); CARBON DIOXIDE LEVEL 28 MEQ/L (21-32); CHLORIDE LEVEL 104 MEQ/L (98-107); CREATININE FOR GFR 0.77 MG/DL (0.55-1.02); GLOMERULAR FILTRATION RATE > 60.0 (>60); GLUCOSE, FASTING 89 MG/DL (70-105); POTASSIUM SERUM 4.7 MEQ/L (3.5-5.1); SODIUM LEVEL 141 MEQ/L (136-145); TOTAL PROTEIN 7.6 GM/DL (6.4-8.2)
[2017-02-08] MEDS ORDERED: AMMONIA AROMATIC INHALANT (FLOOR STOCK) As Ordered ONE (04:24)
[2017-02-08 04:48] LABS: ABG BASE EXCESS 3.3 (-2.0-2.0); ABG HCO3 28.2 MEQ/L (22.0-26.0); ABG PARTIAL PRESSURE CO2 43.5 mmHg (35.0-45.0); ABG STANDARD HCO3 27.4 MEQ/L (22.0-26.0); ABG TOTAL CO2 29.5 MEQ/L (22.0-29.0); ABG pH (ARTERIAL) 7.429 UNITS (7.350-7.450)
[2017-02-08] MEDS ORDERED: METAL LOCK LOOP XX ONE (06:03)
--- NOTE | 2017-02-08 07:00 | REPUSA ---
CLINICAL HISTORY: AMS. TECHNIQUE: Multiple axial brain CT scan sections were obtained from base to vertex without contrast a dministration. COMMENTS: The study shows normal configuration of sella turcica. There are no intra or extra-axial collections. There is no mass effect or midline shift. There is no evidence of hematoma formation. No hydrocephal us is present. No abnormal calcifications are noted. No significant abnormalities are seen either in the posterior fossa or supratentorial compartment. The sinuses and mastoid air cells are patent. IMPRESSION: No evidence of acute intracranial pathology. Thank you for your kind referral of this patient.
--- NOTE | 2017-02-08 07:47 | REP ---
Clinical: Drug overdose . Comparison: 06/17/2016 . Findings: The mediastinum and cardiac silhouette are stable and within normal limits for portable technique. The lung de la torre are clear without acute consolidation, effusion, or pneumothorax. Skeletal structures are intact. Impression: No acute cardiopulmonary process appreciated. Signed by Bridger Terrazas MD 02/08/2017 07:38 A
[2017-02-08 08:12] VITALS: BP 120/76
--- NOTE | 2017-02-08 17:26 | ECGEPIP ---
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
== END 2017-02-08 10:45 | disposition left against medical advice (07) ==
LOC: M ED 02:46
DX: T40.1X1A Poisoning by heroin, accidental (unintentional), initial encounter (principal)

== ENCOUNTER → 2017-06-20 | Outpatient (CLI) | payer OTHER ==
[2017-06-20 21:12] LABS: BASO % 0.5 % (0.0-1.0); EOS # 0.2 10^3/uL (0.0-0.50); EOS % 2.7 % (0.0-3.0); HEMATOCRIT 38.7 % (36.0-47.0); HEMOGLOBIN 12.6 g/dl (12.0-16.0); IMMATURE GRANULOCYTE % 0.2 % (0-0); LYMPH # 2.7 10^3/uL (1.5-6.5); LYMPH % 31.4 % (24.0-44.0); MEAN CORPUSCULAR HEMOGLOBIN 29.6 pg (27.0-33.0); MEAN CORPUSCULAR HGB CONC 32.6 g/dl (32.0-36.5); MEAN CORPUSCULAR VOLUME 91.1 fl (80.0-96.0); MONO # 0.8 10^3/uL (0.0-0.8); MONO % 9.3 % (0.0-5.0); NEUTROPHILS # 4.9 10^3/uL (1.8-7.7); NEUTROPHILS % 55.9 % (36.0-66.0); PLATELET COUNT, AUTOMATED 225 10^3/uL (150-450); RED BLOOD COUNT 4.25 10^6/uL (4.00-5.40); WHITE BLOOD COUNT 8.7 10^3/uL (4.0-10.0)
[2017-06-20 21:21] LABS: ALBUMIN 3.4 GM/DL (3.2-5.2); ALBUMIN/GLOBULIN RATIO 0.94 (1.00-1.93); ALKALINE PHOSPHATASE 64 U/L (45-117); ALT/SGPT 88 U/L (12-78); ANION GAP 8 MEQ/L (8-16); AST/SGOT 82 U/L (7-37); BILIRUBIN,TOTAL 0.3 MG/DL (0.2-1.0); BLOOD UREA NITROGEN 6 MG/DL (7-18); CALCIUM LEVEL 8.7 MG/DL (8.5-10.1); CARBON DIOXIDE LEVEL 22 MEQ/L (21-32); CHLORIDE LEVEL 109 MEQ/L (98-107); GLOMERULAR FILTRATION RATE > 60.0 (>60); GLUCOSE, FASTING 112 MG/DL (70-100); NT-PRO BNP 204 PG/ML (<125); POTASSIUM SERUM 4.5 MEQ/L (3.5-5.1); SODIUM LEVEL 139 MEQ/L (136-145)
[2017-06-20 21:41] LABS: POS COUNT POS FLAG
== END ==
LOC: M WUC 13:27
DX: R60.1 Generalized edema (principal)
CPT/HCPCS: 80053

== ENCOUNTER → 2017-08-18 | Outpatient (REF) | payer OTHER ==
[2017-08-18 18:15] LABS: CHLAMYDIA DNA AMPLIFICATION POSITIVE (NEGATIVE); GC DNA AMPLIFICATION NEGATIVE (NEGATIVE)
== END ==
LOC: M LAB REF 16:26
DX: N76.0 Acute vaginitis (principal)

== ENCOUNTER → 2017-08-25 | Outpatient (REF) | payer OTHER | LOC: M LAB REF 16:39 | DX: N61.1 Abscess of the breast and nipple (principal) | CPT/HCPCS: 87186; 87205 ==

== ENCOUNTER 2017-10-12 06:10 | Emergency (ER) | payer MEDICAID, SELFPAY, OTHER ==
[2017-10-12] MEDS ORDERED: ONDANSETRON 4MG/2ML VIAL (J2405) IV ×2 (07:00)
[2017-10-12] MEDS ORDERED: NS 1,000 ML IV ×2 (07:00)
[2017-10-12] MEDS: METOCLOPRAMIDE INJ 10MG/2ML VIAL (J2765) IM ×2 (08:00)
[2017-10-13 20:40] LABS: BEDSIDE GLUCOSE 114 MG/DL (70-105)
== END 2017-10-12 10:38 | disposition home or self-care (01) ==
LOC: M ED 06:10
DX: T40.1X2A Poisoning by heroin, intentional self-harm, initial encounter (principal); Y92.9 Unspecified place or not applicable; Y93.9 Activity, unspecified; R00.0 Tachycardia, unspecified; R94.31 Abnormal electrocardiogram [ECG] [EKG]
CPT/HCPCS: J2765

== ENCOUNTER 2017-11-18 23:02 | Emergency (ER) | payer MEDICAID | END 2017-11-19 03:14 | disposition left against medical advice (07) | LOC: M ED 23:02 | DX: R30.0 Dysuria (principal); F10.10 Alcohol abuse, uncomplicated; F19.10 Other psychoactive substance abuse, uncomplicated; G43.909 Migraine, unspecified, not intractable, without status migrainosus; Z86.19 Personal history of other infectious and parasitic diseases; Z72.0 Tobacco use; Z53.21 Procedure and treatment not carried out due to patient leaving prior to being seen by health care provider | CPT/HCPCS: 99281 ==

== ENCOUNTER 2017-11-19 03:25 | Emergency (ER) | payer MEDICAID ==
[2017-11-19 04:34] LABS: KETONE, URINE AUTO RFX TRACE mg/dL (NEGATIVE); MUCUS, URINE RFX LARGE (NEGATIVE); NITRITE, URINE AUTO RFX NEGATIVE (NEGATIVE); RBC, URINE AUTO RFX 10 /HPF (0-3); SPECIFIC GRAVITY UR AUTO RFX 1.021 (1.002-1.035); SQUAM EPITHELIAL CELL UR AURFX 5 /HPF (0-6)
[2017-11-19 04:38] LABS: LEUKOCYTE ESTERASE UR AUTO RFX 1+ (NEGATIVE); WBC, URINE AUTO RFX 31 /HPF (0-3)
[2017-11-19 05:04] LABS: CONTROL LINE UCG INT CTR LINE PRESENT; URINE PREG TEST NEGATIVE (NEGATIVE)
[2017-11-19] MEDS: BACTRIM 160MG/800MG DS TAB PO (06:28)
== END 2017-11-19 06:31 | disposition home or self-care (01) ==
LOC: M ED 03:25
DX: N39.0 Urinary tract infection, site not specified (principal); N61.1 Abscess of the breast and nipple; F10.10 Alcohol abuse, uncomplicated; F19.10 Other psychoactive substance abuse, uncomplicated; G43.909 Migraine, unspecified, not intractable, without status migrainosus; Z86.19 Personal history of other infectious and parasitic diseases; Z72.0 Tobacco use
CPT/HCPCS: 84703

== ENCOUNTER 2017-12-26 22:01 | Emergency (ER) | payer MEDICAID | END 2017-12-27 01:50 | disposition left against medical advice (07) | LOC: M ED 22:01 | DX: R30.9 Painful micturition, unspecified (principal); Z53.21 Procedure and treatment not carried out due to patient leaving prior to being seen by health care provider ==

== ENCOUNTER 2018-02-05 18:41 | Inpatient (IN) | payer MEDICAID ==
[2018-02-05 19:30] LABS: BASO % 0.2 % (0.0-1.0); EOS # 0.1 10^3/uL (0.0-0.50); EOS % 1.1 % (0.0-3.0); HEMATOCRIT 40.4 % (36.0-47.0); IMMATURE GRANULOCYTE % 0.3 % (0-3.0); LYMPH # 4.2 10^3/uL (1.5-6.5); LYMPH % 40.1 % (24.0-44.0); MEAN CORPUSCULAR HEMOGLOBIN 27.5 pg (27.0-33.0); MEAN CORPUSCULAR HGB CONC 32.2 g/dl (32.0-36.5); MEAN CORPUSCULAR VOLUME 85.4 fl (80.0-96.0); MONO # 0.8 10^3/uL (0.0-0.8); MONO % 7.5 % (0.0-5.0); NEUTROPHILS # 5.3 10^3/uL (1.8-7.7); NEUTROPHILS % 50.8 % (36.0-66.0); PLATELET COUNT, AUTOMATED 229 10^3/uL (150-450); RED BLOOD COUNT 4.73 10^6/uL (4.00-5.40); RED CELL DISTRIBUTION WIDTH 14.5 % (11.5-14.5); WHITE BLOOD COUNT 10.4 10^3/uL (4.0-10.0)
[2018-02-05 19:34] LABS: CONTROL LINE HCG INT CTR LINE PRESENT; HCG, SERUM QUALITATIVE NEGATIVE (NEGATIVE)
[2018-02-05 19:41] LABS: OSMOLALITY SERUM 288 MOSM/KG (275-295)
[2018-02-05 19:50] LABS: ACETAMINOPHEN LEVEL < 2.0 UG/ML (10.0-30.0); ALBUMIN/GLOBULIN RATIO 1.05 (1.00-1.93); ALKALINE PHOSPHATASE 59 U/L (45-117); ALT/SGPT 40 U/L (12-78); ANION GAP 7 MEQ/L (8-16); AST/SGOT 45 U/L (7-37); BILIRUBIN,DIRECT 0.1 MG/DL (0.0-0.2); BILIRUBIN,TOTAL 0.3 MG/DL (0.2-1.0); BLOOD UREA NITROGEN 8 MG/DL (7-18); CALCIUM LEVEL 8.9 MG/DL (8.5-10.1); CARBON DIOXIDE LEVEL 26 MEQ/L (21-32); CHLORIDE LEVEL 107 MEQ/L (98-107); CPK CREATINE PHOSPHOKINASE 486 U/L (26-192); CREATININE FOR GFR 0.89 MG/DL (0.55-1.30); GLOMERULAR FILTRATION RATE > 60.0 (>60); GLUCOSE, FASTING 87 MG/DL (70-100); POTASSIUM SERUM 4.3 MEQ/L (3.5-5.1); SALICYLATE LEVEL 2.2 MG/DL (5.0-30.0); SODIUM LEVEL 140 MEQ/L (136-145); THYROID STIMULATING HORMONE 0.582 uIU/ML (0.358-3.740); TOTAL PROTEIN 7.8 GM/DL (6.4-8.2)
[2018-02-05] MEDS ORDERED: NALOXONE INJ 2 MG/2 ML SYRINGE (J2310) As Ordered (22:54)
[2018-02-06] MEDS: cefTRIAXone SOD 250 MG VIAL (J0696) IM (00:15)
[2018-02-06] MEDS: NS 1,000 ML IV (00:15)
[2018-02-06] MEDS: AZITHROMYCIN 250 MG TAB PO (00:15)
[2018-02-06 02:58] LABS: AMPHETAMINES LEVEL URINE POSITIVE (NEGATIVE); BARBITURATES URINE NEGATIVE (NEGATIVE); BENZODIAZEPINES URINE POSITIVE (NEGATIVE); CANNABINOIDS URINE POSITIVE (NEGATIVE); COCAINE METABOLITE URINE POSITIVE (NEGATIVE); METHADONE URINE NEGATIVE (NEGATIVE); OPIATES URINE POSITIVE (NEGATIVE); PHENCYCLIDINE URINE NEGATIVE (NEGATIVE)
[2018-02-06] MEDS ORDERED: ACETAMINOPHEN TAB 650MG DOSE (2X325MG) PO (03:15)
[2018-02-06] MEDS ORDERED: MOM 30ML SUSPENSION UDC PO (03:15)
[2018-02-06] MEDS ORDERED: MAALOX 30 ML SUSP *UDC PO (03:15)
[2018-02-06] MEDS: cloNIDine 0.1 MG TAB PO (12:00)
[2018-02-06] MEDS: LORazepam 1 MG TAB PO (13:43)
[2018-02-06] MEDS ORDERED: cloNIDine 0.1 MG TAB PO (16:45)
[2018-02-06] MEDS: BUPRENORPHINE/NALOXONE 8-2MG SUBLINGUAL TABLET(SUBOXONE) SL (17:00)
[2018-02-07] MEDS: BUPRENORPHINE/NALOXONE 8-2MG SUBLINGUAL TABLET(SUBOXONE) SL ×2 (08:48→08:56)
[2018-02-07] MEDS: GABAPENTIN 400 MG CAP PO ×2 (14:32→20:31)
[2018-02-07] MEDS: traZODone 50 MG TAB PO (21:05)
[2018-02-08] MEDS: GABAPENTIN 400 MG CAP PO ×2 (09:44→20:22)
[2018-02-08] MEDS: BUPRENORPHINE/NALOXONE 8-2MG SUBLINGUAL TABLET(SUBOXONE) SL ×4 (09:44→18:33)
[2018-02-08] MEDS: traZODone 50 MG TAB PO (21:45)
[2018-02-09] MEDS: GABAPENTIN 400 MG CAP PO (09:15)
[2018-02-09] MEDS: BUPRENORPHINE/NALOXONE 8-2MG SUBLINGUAL TABLET(SUBOXONE) SL (10:04)
[2018-02-10 14:16] LABS: ETHYL ALCOHOL (ETHANOL) < 0.003 % (0.000-0.010)
== END 2018-02-09 14:20 | disposition home or self-care (01) | DRG 754 ==
LOC: M PSY 02-07 14:24 → M ED 18:41 → M PSY 02-07 19:55 → M ED INP 02-06 03:13 → M PSY 02-06 04:32
DX: F32.9 Major depressive disorder, single episode, unspecified (principal); B18.2 Chronic viral hepatitis C; F12.90 Cannabis use, unspecified, uncomplicated; F11.90 Opioid use, unspecified, uncomplicated; F14.90 Cocaine use, unspecified, uncomplicated; F15.90 Other stimulant use, unspecified, uncomplicated; Z79.899 Other long term (current) drug therapy; F41.9 Anxiety disorder, unspecified; G43.909 Migraine, unspecified, not intractable, without status migrainosus; J45.909 Unspecified asthma, uncomplicated; F17.200 Nicotine dependence, unspecified, uncomplicated; D72.829 Elevated white blood cell count, unspecified

== ENCOUNTER → 2018-02-17 | Outpatient (REF) | payer MEDICAID ==
[2018-02-18 15:22] LABS: CHLAMYDIA DNA AMPLIFICATION POSITIVE (NEGATIVE); GC DNA AMPLIFICATION NEGATIVE (NEGATIVE)
== END ==
LOC: M SFHCLERA 19:18
DX: N89.8 Other specified noninflammatory disorders of vagina (principal)
CPT/HCPCS: 87591

== ENCOUNTER → 2018-03-05 | Outpatient (REF) | payer MEDICAID ==
[2018-03-05 21:38] LABS: CHLAMYDIA DNA AMPLIFICATION NEGATIVE (NEGATIVE); GC DNA AMPLIFICATION NEGATIVE (NEGATIVE)
== END ==
LOC: M SFHCLERA 17:08
DX: A74.9 Chlamydial infection, unspecified (principal); Z20.9 Contact with and (suspected) exposure to unspecified communicable disease

== ENCOUNTER 2018-05-07 21:38 | Emergency (ER) | payer MEDICAID, OTHER ==
[2018-05-07 22:05] LABS: APPEARANCE, URINE CLOUDY (CLEAR); BACTERIA, URINE AUTO 2+ (NEGATIVE); BILIRUBIN, URINE AUTO NEGATIVE (NEGATIVE); BLOOD, URINE BLOOD NEGATIVE (NEGATIVE); COLOR, URINE YELLOW (YELLOW); GLUCOSE, URINE (UA) AUTO NEGATIVE (NEGATIVE); KETONE, URINE AUTO TRACE mg/dL (NEGATIVE); LEUKOCYTE ESTERASE, URINE AUTO 3+ (NEGATIVE); MUCUS, URINE SMALL (NEGATIVE); NITRITE, URINE AUTO NEGATIVE (NEGATIVE); PROTEIN, URINE AUTO NEGATIVE (NEGATIVE); RBC, URINE AUTO 5 /HPF (0-3); SPECIFIC GRAVITY URINE AUTO 1.021 (1.002-1.035); SQUAMOUS EPITHELIAL CELL UR AU 17 /HPF (0-6); WBC, URINE AUTO 65 /HPF (0-3)
[2018-05-07] MEDS: NITROFURANTOIN (MACROBID) 100 MG CAP PO (22:45)
[2018-05-07] MEDS: PHENAZOPYRIDINE 100 MG TAB PO (22:45)
== END 2018-05-07 22:30 | disposition home or self-care (01) ==
LOC: M ED 22:30
DX: N30.00 Acute cystitis without hematuria (principal); G43.909 Migraine, unspecified, not intractable, without status migrainosus; J45.909 Unspecified asthma, uncomplicated; Z72.0 Tobacco use; Z79.899 Other long term (current) drug therapy
CPT/HCPCS: 81001

== ENCOUNTER 2018-05-08 22:24 | Emergency (ER) | payer OTHER, MEDICAID ==
[2018-05-08] MEDS: AUGMENTIN 875 MG TAB PO (22:55)
== END 2018-05-08 23:07 | disposition home or self-care (01) ==
LOC: M ED 22:24
DX: K02.9 Dental caries, unspecified (principal); Z79.891 Long term (current) use of opiate analgesic; F17.210 Nicotine dependence, cigarettes, uncomplicated
CPT/HCPCS: 99282

== ENCOUNTER 2018-07-28 18:04 | Emergency (ER) | payer OTHER ==
[~2018-07-28] VITALS: Ht 170.2 cm; Wt 67.0 kg
[~2018-07-28 18:04] MED LIST changes: -ACET50TA PO; +ALPR1TAB3 PO; +AUGM875T28 PO; +CIPR-249 PO; +DOXY100C37 PO; +GABA-845 PO; +MACR100C43 PO; +MAPA500T2 PO; +PYRI1TAB5 PO; +SUBO8MIS SL
[2018-07-28 18:05] VITALS: BP 138/69
[2018-07-28] MEDS ORDERED: AMOX500T PO (18:15)
[2018-07-28] MEDS ORDERED: METH10CO PO (18:15)
[2018-07-28] MEDS ORDERED: CLINDAMYCIN 150 MG CAP PO ONE (21:00)
[2018-07-28] MEDS ORDERED: KETOROLAC TROMETHAMINE 10 MG TAB PO ONE (21:00)
[2018-07-28] MEDS ORDERED: ACETAMINOPHEN 325 MG TAB PO ONE (21:00)
[2018-07-28] MEDS ORDERED: CLEO300C2 PO (21:06)
[2018-07-28] MEDS ORDERED: MONI1KIT3 VG (21:06)
[2018-07-28] MEDS ORDERED: KETO10TAB PO (21:06)
== END 2018-07-28 21:09 | disposition home or self-care (01) ==
LOC: M ED 18:04
DX: K04.7 Periapical abscess without sinus (principal); F19.20 Other psychoactive substance dependence, uncomplicated; F10.10 Alcohol abuse, uncomplicated; J45.909 Unspecified asthma, uncomplicated; G43.909 Migraine, unspecified, not intractable, without status migrainosus; Z72.0 Tobacco use; Z79.899 Other long term (current) drug therapy; Z53.21 Procedure and treatment not carried out due to patient leaving prior to being seen by health care provider

== ENCOUNTER 2018-08-15 12:11 | Emergency (ER) | payer OTHER ==
[~2018-08-15] VITALS: Ht 172.7 cm; Wt 63.4 kg
[~2018-08-15 12:11] MED LIST changes: +AMOX500T PO; +CLEO300C2 PO; +KETO10TAB PO; +METH10CO PO; +MONI1KIT3 VG; +NALOXONE INJ 0.4 MG/1 ML VIAL (J2310) As Ordered ONE; +NALOXONE INJ 2 MG/2 ML SYRINGE (J2310) As Ordered ONE
[2018-08-15] MEDS ORDERED: ONDANSETRON 4MG/2ML VIAL (J2405) IV ONE (12:30)
[2018-08-15] MEDS ORDERED: NS 1,000 ML IV ONE (12:30)
[2018-08-15 12:56] LABS: VENOUS HCO3 26.2 MEQ/L (23.0-27.0); VENOUS PARTIAL PRESSURE CO2 43.7 mmHg (38.0-50.0); VENOUS PARTIAL PRESSURE O2 145.4 mmHg (30.0-50.0); VENOUS PH 7.396 UNITS (7.330-7.430); VENOUS STANDARD HCO3 25.4 MEQ/L; VENOUS TOTAL CO2 27.6 MEQ/L (24.0-28.0)
[2018-08-15 12:59] LABS: BASO % 0.1 % (0.0-1.0); HEMATOCRIT 43.2 % (36.0-47.0); HEMOGLOBIN 14.3 g/dl (12.0-15.5); LYMPH # 0.7 10^3/uL (1.5-6.5); LYMPH % 7.4 % (24.0-44.0); MEAN CORPUSCULAR HEMOGLOBIN 28.7 pg (27.0-33.0); MEAN CORPUSCULAR HGB CONC 33.1 g/dl (32.0-36.5); MEAN CORPUSCULAR VOLUME 86.7 fl (80.0-96.0); MONO # 0.1 10^3/uL (0.0-0.8); MONO % 1.3 % (0.0-5.0); NEUTROPHILS % 90.6 % (36.0-66.0); PLATELET COUNT, AUTOMATED 179 10^3/uL (150-450); RED BLOOD COUNT 4.98 10^6/uL (4.00-5.40); WHITE BLOOD COUNT 8.8 10^3/uL (4.0-10.0)
[2018-08-15 13:25] LABS: HCG, SERUM QUALITATIVE NEGATIVE (NEGATIVE)
[2018-08-15 13:28] LABS: OSMOLALITY SERUM 278 MOSM/KG (275-295)
[2018-08-15 13:39] LABS: ACETAMINOPHEN LEVEL < 2.0 UG/ML (10.0-30.0); ALBUMIN 3.7 GM/DL (3.2-5.2); ALT/SGPT 52 U/L (12-78); BILIRUBIN,DIRECT 0.2 MG/DL (0.0-0.2); BILIRUBIN,TOTAL 0.7 MG/DL (0.2-1.0); BLOOD UREA NITROGEN 6 MG/DL (7-18); CALCIUM LEVEL 8.5 MG/DL (8.5-10.1); CARBON DIOXIDE LEVEL 22 MEQ/L (21-32); CHLORIDE LEVEL 106 MEQ/L (98-107); CPK CREATINE PHOSPHOKINASE 140 U/L (26-192); CREATININE FOR GFR 0.82 MG/DL (0.55-1.30); ETHYL ALCOHOL (ETHANOL) < 0.003 % (0.000-0.010); GLOMERULAR FILTRATION RATE > 60.0 (>60); GLUCOSE, FASTING 81 MG/DL (70-100); POTASSIUM SERUM 4.1 MEQ/L (3.5-5.1); SALICYLATE LEVEL 2.3 MG/DL (5.0-30.0); SODIUM LEVEL 138 MEQ/L (136-145); THYROID STIMULATING HORMONE 0.124 uIU/ML (0.358-3.740); TOTAL PROTEIN 7.2 GM/DL (6.4-8.2)
--- NOTE | 2018-08-15 14:39 | REP ---
CHEST, SINGLE VIEW: There is no evidence of acute infiltrate. No pleural effusion is seen. The heart is normal in size. The mediastinal silhouette is unremarkable. The visualized osseous structures are intact. IMPRESSION: No acute pulmonary disease. Electronically Signed by Mendez Woody MD 08/15/2018 07:12 P
[2018-08-15 19:12] VITALS: BP 103/56
--- NOTE | 2018-08-15 19:19 | ECGEPIP ---
Stationary ECG Study 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
== END 2018-08-15 19:13 | disposition home or self-care (01) ==
LOC: EDBD 12:11 → M ED 12:11
DX: F11.129 Opioid abuse with intoxication, unspecified (principal); J45.909 Unspecified asthma, uncomplicated; B19.20 Unspecified viral hepatitis C without hepatic coma; F41.9 Anxiety disorder, unspecified; F33.9 Major depressive disorder, recurrent, unspecified; F17.210 Nicotine dependence, cigarettes, uncomplicated
CPT/HCPCS: 36415; 71045; 80048; 80076; 82550; 82803; 83605; 83930; 84439; 84443; 84703; 85025; 93005; 93041; 96361; 96374; 99285; G0480; J2405

== ENCOUNTER 2018-08-26 14:18 | Inpatient (IN) | payer MEDICAID, OTHER ==
[~2018-08-26] VITALS: Ht 170.2 cm; Wt 61.0 kg
[~2018-08-26 14:18] MED LIST changes: -NALOXONE INJ 0.4 MG/1 ML VIAL (J2310) As Ordered ONE; -NALOXONE INJ 2 MG/2 ML SYRINGE (J2310) As Ordered ONE
[2018-08-26] MEDS ORDERED: cloNIDine 0.2 MG TAB PO ONE (14:30)
[2018-08-26 17:56] LABS: HEMATOCRIT 43.9 % (36.0-47.0); MEAN CORPUSCULAR HEMOGLOBIN 28.5 pg (27.0-33.0); MEAN CORPUSCULAR HGB CONC 34.2 g/dl (32.0-36.5); MEAN CORPUSCULAR VOLUME 83.5 fl (80.0-96.0); PLATELET COUNT, AUTOMATED 264 10^3/uL (150-450); RED BLOOD COUNT 5.26 10^6/uL (4.00-5.40); WHITE BLOOD COUNT 12.4 10^3/uL (4.0-10.0)
[2018-08-26 18:32] LABS: ACETAMINOPHEN LEVEL < 2.0 UG/ML (10.0-30.0); ALBUMIN 4.1 GM/DL (3.2-5.2); ALT/SGPT 50 U/L (12-78); BILIRUBIN,DIRECT 0.1 MG/DL (0.0-0.2); BILIRUBIN,TOTAL 0.7 MG/DL (0.2-1.0); BLOOD UREA NITROGEN 14 MG/DL (7-18); CALCIUM LEVEL 8.9 MG/DL (8.5-10.1); CARBON DIOXIDE LEVEL 22 MEQ/L (21-32); CHLORIDE LEVEL 109 MEQ/L (98-107); CREATININE FOR GFR 0.85 MG/DL (0.55-1.30); ETHYL ALCOHOL (ETHANOL) < 0.003 % (0.000-0.010); GLOMERULAR FILTRATION RATE > 60.0 (>60); GLUCOSE, FASTING 73 MG/DL (70-100); POTASSIUM SERUM 3.8 MEQ/L (3.5-5.1); SALICYLATE LEVEL 2.1 MG/DL (5.0-30.0); SODIUM LEVEL 139 MEQ/L (136-145); TOTAL PROTEIN 7.8 GM/DL (6.4-8.2)
[2018-08-26 18:37] LABS: HCG, SERUM QUALITATIVE POSITIVE (NEGATIVE)
[2018-08-26 19:01] LABS: AMPHETAMINES LEVEL URINE POSITIVE (NEGATIVE); BARBITURATES URINE NEGATIVE (NEGATIVE); BENZODIAZEPINES URINE POSITIVE (NEGATIVE); CANNABINOIDS URINE POSITIVE (NEGATIVE); COCAINE METABOLITE URINE NEGATIVE (NEGATIVE); METHADONE URINE POSITIVE (NEGATIVE); OPIATES URINE NEGATIVE (NEGATIVE); PHENCYCLIDINE URINE NEGATIVE (NEGATIVE)
[2018-08-26] MEDS ORDERED: MAALOX 30 ML SUSP *UDC PO PRN (19:45)
[2018-08-26] MEDS ORDERED: HALOPERIDOL 10 MG TAB PO ONE ×2 (19:45→22:30)
[2018-08-26] MEDS ORDERED: diphenhydrAMINE 25 MG CAP PO ONE (19:45)
[2018-08-26 20:13] LABS: URINE PREG TEST NEGATIVE (NEGATIVE)
[2018-08-26] MEDS ORDERED: diphenhydrAMINE 50 MG CAP PO ONE (22:30)
[2018-08-26] MEDS ORDERED: diphenhydrAMINE INJ 50MG/ML VIAL (J1200) IM ONE (22:45)
[2018-08-26] MEDS ORDERED: HALOPERIDOL 5 MG/ML VIAL (J1630) IM ONE (22:45)
[2018-08-26 23:04] VITALS: BP 98/62
[2018-08-27 06:28] VITALS: BP 105/61
[2018-08-27] MEDS: HALOPERIDOL 5 MG TAB PO SCH ×2 (08:59→16:45)
[2018-08-27] MEDS ORDERED: METHADONE 10 MG TAB (S0109) PO SCH (09:00)
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
[2018-08-27 14:39] LABS: HCG, SERUM QUALITATIVE POSITIVE (NEGATIVE)
[2018-08-27 15:13] LABS: HCG, SERUM QUANTITATIVE 20 MIU/ML
[2018-08-27] MEDS ORDERED: cloNIDine 0.1 MG TAB PO SCH (16:00)
[2018-08-27 18:00] VITALS: BP 112/56
[2018-08-27] MEDS: METHADONE 10 MG TAB (S0109) PO SCH (21:22)
[2018-08-27] MEDS: diphenhydrAMINE 50 MG CAP PO PRN (21:22)
[2018-08-27] MEDS: traZODone 50 MG TAB PO PRN (21:22)
--- NOTE | 2018-08-27 22:32 | HPEPDOC ---
[facility] Medical History & Physical Date of Admission Aug 27, 2018 History and Physical CHIEF COMPLAINT: HISTORY OF PRESENT ILLNESS: Patient is a 22 yo female w/ no medical pmhx but multiple psychiatric illnesses who said she came in for methadone and xanax withdrawal. She said she voluntarily tried quitting but the withdraweal sym,tpoms were too much and sia started having suicidal thoughgts so she came in. She denied any symptoms such as fever, chills, chest pain, sob, weakness. headache, blurry vision , nausea, vomiting or abd pain. Per psych note As per Ed report: "PT was originally seen and then demanded to AMA when she didn't like the treatment options that were discussed. PT was loud in the waiting room demanding a medicaid cab and she was denied due to AMA from treatment. She continued to escalate in the waiting room yelling that she was refused admission even though she was going to kill herself. Staff attempted to calm but PT got louder and more demanding and security called 911. [employer] responded but were no longer needed as PT was readmitted to [facility] for MHE. When PT got into her room attempts to discuss her behavior while she was in the waiting room did not go well "Well you people just throw us back on the street to " "I'll just kill myself upstairs" "I do not want to be admitted because you told me they won't help me" PT appears to have difficulty staying focused and most responses are minimal. When PT does not want to answer a question she would either blame others ot put her head under her blanket and not respond. She states she wants to if she has to k eep feeling like she does and will not CFS at this time. PT plans to overdose on sleeping pills if she continues to suffer with her current withdrawel symptoms. PT's fiance of 4 years is supportive and states it is not uncommon for PT to make depressive statements and just the other night he callled 911 as PT was unresponsive and possibly seizing from drug use. Once MHE was completed another staff approached this sheet writer to say that PT expressed she does not wish to interact with this sheet writer again and made insulting comments about this sheet writer's daughter. Reassured PT that she would not have to continue to interact with this sheet writer". ROS all 14 point ROS is negative except for whats listed in HPI Past Psychiatric History Previous Psychiatric Diagnosis: Polysubstance abuse Previous Psychiatric Admissions: Was admitted to [facility] in January 2018 Suicide Attempts: denies Psychiatric Follow-up: substance abuse outpatient treatment, Dr. Abdullahi Psychiatric medications: Rx for suboxone, xanax, gabapentin from Dr. Abdullahi 02/04/18 Past Medical History Medical Problems migraine HDEZ h/o concussion asthma H/O pneumonia 06/11 chronic Hepatitis C PSHX: Surgeries: No Family Medical/Psychiatric HX Medical Problems She reports her mother had a h/o alcohol abuse maternal grandmother - cancer of unknown source Social History Current Living Situation: she has no family support, she is homeless Education: high school, she didn't like going to school Employment: unemployed Social Support: she says her mother but previously she had said she didn't have a lof of family support and that her mother is an alcoholic Marital: single, 4y/o child she lost custody of due to drg use earlier this year smokes cigarrette 1/2 ppd for 4 yrs used heroin - last 8 mos ago denied etoh use Physical exam GEN: NAD, normal weight HEENT: PERRLA, neck supple, EOMI, trachea midline, normal conjunctiva CVS: no chest wall tenderness, normal S1, S2, regular rate and rhythm, no edema, no JVD RESP: no acute distress, LCTAB, no wheezes, rhonchi, or crackles Abd: soft, nontender, nondistended, normal bowel sound, no guarding : no cva tenderness, no suprapubic tenderness MSK : normal strength 5/5, FROM, joint swelling or tenderness, no muscle tenderness Neuro: no focal deficit, CN 2-12 intact Psych: AOA x3, normal mood, good judgement and insight LABORATORY DATA: See below. ASSESSMENT and Plan medical rec Polysubstance abuse - Patient is medically stable , there is no abnormal findings that requires me dication or further lab /imaging follow up - c/w mgt per psych test positive - in blood - avoid teratogenic meds full code , from home , no svc Vital Signs Vital Signs Date Time Temp Pulse Resp B/P (MAP) Pulse Ox O2 Delivery O2 Flow Rate FiO2 08/27/18 21:22 16 08/27/18 18:00 99.0 50 112/56 (74) 08/26/18 19:44 95 Room Air Laboratory Data Labs 24H Laboratory Tests 2 08/27/18 13:38: Human Chorionic Gonadotropin, Qual POSITIVEA, Human Chorionic Gonadotropin, Quant 20 Microbiology Microbiology 08/27/18 MRSA Screen, Received Pending Home Medications Unable to Obtain Active Prescriptions or Reported Meds Allergies Coded Allergies: No Known Allergies (Unverified , 08/26/18) CHANDRAKANT JOHNSON MD Aug 27, 2018 22:17
[2018-08-28 06:28] VITALS: BP 122/74
[2018-08-28] MEDS: METHADONE 10 MG TAB (S0109) PO SCH ×3 (09:12→20:33)
[2018-08-28] MEDS: diphenhydrAMINE 50 MG CAP PO PRN (12:59)
[2018-08-28] MEDS ORDERED: diphenhydrAMINE 50 MG CAP PO ONE (17:15)
[2018-08-28 18:24] VITALS: BP 112/65
[2018-08-28] MEDS: traZODone 50 MG TAB PO PRN (20:33)
[2018-08-29 06:47] VITALS: BP 110/58
[2018-08-29] MEDS: METHADONE 10 MG TAB (S0109) PO SCH ×3 (08:26→20:15)
[2018-08-29 13:00] VITALS: BP 140/86
[2018-08-29] MEDS: diphenhydrAMINE 50 MG CAP PO PRN (13:05)
[2018-08-29] MEDS: cloNIDine 0.1 MG TAB PO PRN (15:15)
--- NOTE | 2018-08-29 15:44 | MHIPN ---
DATE: 08/29/2018 SUBJECTIVE: "Since I have found out that I'm , I need more of methadone." OBJECTIVE: She is a 22-year-old female with a history of depression, substance abuse, and recently found out who was admitted because of suicidal thoughts, probably due to withdrawal from opioids. Currently she is on methadone. Does not show any withdrawal symptoms; however, patient has some craving. She is also on clonidine. Otherwise, her sleep and appetite are good. MENTAL STATUS EXAMINATION: Casually dressed, cooperative. Made good eye contact. Speech coherent, goal directed. Mood is depressed. Affect is constricted. Thought process linear, goal directed. Thought content: Denied any suicidal or homicidal ideas. No evidence of any paranoia or any delusions. No auditory or visual hallucinations. Insight and judgment are limited. DIAGNOSES: 1. Depressive disorder, not otherwise specified. 2. Rule out substance-induced depression. 3. Polysubstance dependence. 4. Hepatitis C, due probably due to intravenous (IV) drug use. VITAL SIGNS: Temperature 97.5, pulse is 63, respirations 14, blood pressure is 110/58. LABORATORY DATA: Her hCG is positive for . PLAN: Continue current medications and continue individual and group therapy. The coordination of care provided with social work, nursing staff, and treatment team. ESTIMATED LENGTH OF STAY: 4-5 days.
[2018-08-29 18:00] VITALS: BP 136/88
[2018-08-29] MEDS: traZODone 50 MG TAB PO PRN (20:14)
[2018-08-30 06:46] VITALS: BP 121/73
[2018-08-30] MEDS: METHADONE 10 MG TAB (S0109) PO SCH ×3 (08:35→20:04)
[2018-08-30] MEDS ORDERED: METHADONE 10 MG TAB (S0109) PO ONE (12:00)
[2018-08-30 12:07] VITALS: BP 131/90
[2018-08-30] MEDS: cloNIDine 0.1 MG TAB PO PRN (13:25)
[2018-08-30 18:00] VITALS: BP 124/89
--- NOTE | 2018-08-30 18:01 | MHIPN ---
DATE: 08/30/2018 SUBJECTIVE: "I am feeling better, but I have shivering." OBJECTIVE: She is a 22-year-old female with a history of depression. substance use disorder, and recently found out that she is , who was admitted because of suicidal thoughts after her methadone was abruptly weaned off. Currently, she is on small maintenance dose of methadone, as the patient is currently . MENTAL STATUS EXAMINATION: She is dressed in a hospital gown. Cooperative. Made good eye contact. Speech coherent, goal directed. Mood is depressed. Affect is constricted. Thought process linear, goal directed. Thought content: Denied any suicidal or homicidal ideas. No evidence of any paranoia or any delusions. No auditory or visual hallucinations. Insight and judgment are fair. DIAGNOSES: 1. Depressive disorder, not otherwise specified. 2. Rule out substance-induced depression. 3. Polysubstance dependence. 4. Hepatitis C, due probably due to intravenous (IV) drug use. VITAL SIGNS: Temperature 97.3, pulse is 89, respiratory rate 14, blood pressure is 121/73. LABORATORY DATA: Hematology and chemistry within normal limits. Toxicology was positive for methadone, amphetamine, benzodiazepine, cannabis. CURRENT MEDICATIONS: - methadone 10 mg twice a day - Buspar 5 mg three times a day PLAN: Increase her methadone to 20 mg in the morning, 10 mg at noon, and 10 mg at night. Recommendation for inpatient rehabilitation was done. Coordination of care provided with social work, nursing staff, and treatment team. WALLY
[2018-08-30] MEDS: traZODone 50 MG TAB PO PRN (21:01)
[2018-08-31 06:31] VITALS: BP 121/77
[2018-08-31] MEDS: METHADONE 10 MG TAB (S0109) PO SCH ×3 (08:21→20:08)
[2018-08-31 12:10] VITALS: BP 123/86
[2018-08-31] MEDS: cloNIDine 0.1 MG TAB PO PRN ×2 (13:16→21:14)
[2018-08-31 18:00] VITALS: BP 112/78
[2018-08-31] MEDS: traZODone 50 MG TAB PO PRN (21:14)
[2018-09-01 06:31] VITALS: BP 100/59
[2018-09-01] MEDS: METHADONE 10 MG TAB (S0109) PO SCH ×2 (08:22→15:23)
[2018-09-01] MEDS: PRENATAL VITAMINS CHEWABLE TABLET PO SCH (12:21)
[2018-09-01 18:00] VITALS: BP 137/89
--- NOTE | 2018-09-01 18:15 | MHIPNPDOC ---
[facility] Progress Note Progress Note DATE OF SERVICE: 08/31/18 HISTORY: "PT had her fiance call 911 due to feeling SI in regards to withdrawing from drug abuse" HISTORY: As per Ed report: "PT was originally seen and then demanded to AMA when she didn't like the treatment options that were discussed. PT was loud in the waiting room demanding a medicaid cab and she was denied due to AMA from treatment. She continued to escalate in the waiting room yelling that she was refused admission even though she was going to kill herself. Staff attempted to calm but PT got louder and more demanding and security called 911. [employer] responded but were no longer needed as PT was readmitted to [facility] for MHE. When PT got into her room attempts to discuss her behavior while she was in the waiting room did not go well "Well you people just throw us back on the street to " "I'll just kill myself upstairs" "I do not want to be admitted because you told me they won't help me" PT appears to have difficulty staying focused and most responses are minimal. When PT does not want to answer a question she would either blame others ot put her head under her blanket and not respond. She states she wants to if she has to k eep feeling like she does and will not CFS at this time. PT plans to overdose on sleeping pills if she continues to suffer with her current withdrawel symptoms. PT's fiance of 4 years is supportive and states it is not uncommon for PT to make depressive statements and just the other night he callled 911 as PT was unresponsive and possibly seizing from drug use. Once MHE was completed another staff approached this senior copywriter to say that PT expressed she does not wish to interact with this senior copywriter again and made insulting comments about this senior copywriter's daughter. Reassured PT that she would not have to continue to interact with this senior copywriter". VITAL SIGNS: See below. NEW TEST RESULTS: See below CURRENT MEDICATIONS: See below. MENTAL STATUS EXAMINATION: Patient is a 22-year old female, who is alert, cooperative, drssed n personal clothes. Speech: Is normal in rate, tone and volume. Language skills are good. Thought processes including: intact. Thought content: focused on getting methadone. Description of abnormal or psychotic thoughts: denies si, denies hi, denies thought delusions, denies AV hallucinations. Judgment: Poor. Insight: poor. Orientation: x 3. Recent and remote memory: intact. Attention span and concentration: good. Language: normal. Fund of knowledge: average. Mood: anxious. Affect: anxious. DIAGNOSES: 1. Other specified depressive disorder 2. R/O substance induced depression 3. Methadone, benzodiazepines, marihuana, methamphetamines use disorder ASSESSMENT: Patient looks better, reports she feels btter since her methadone was increased, she is still looking forward to go to Rehab. I explain once again that sometimes is not possible to go bed to bed. MANAGEMENT PLAN: Will start tapering methadone TIME SPENT: 20 minutes. Vital Signs Vital Signs Date Time Temp Pulse Resp B/P (MAP) Pulse Ox O2 Delivery O2 Flow Rate FiO2 09/01/18 15:23 66 14 09/01/18 06:31 98.9 100/59 (73) 08/26/18 19:44 95 Room Air Current Medications Current Medications Acetaminophen (Tylenol Tab) 650 mg Q6HP PRN PO HEADACHE or DISCOMFORT; Start 08/26/18 at 19:45 Al Hydrox/Mg Hydrox/Simethicone (Mylanta) 30 ml Q4HP PRN PO HEARTBURN/INDIGESTION; Start 08/26/18 at 19:45 Clonidine HCl (Catapres) 0.1 mg TID PO ; Start 08/27/18 at 16:00; Stop 08/27/18 at 21:12; Status DC Clonidine HCl (Catapres) 0.1 mg TID PRN PO CRAVINGS Last administered on 08/31/18at 21:14; Start 08/27/18 at 21:15 Diphenhydramine HCl (Benadryl) 50 mg BIDP PRN PO EPS Last administered on 08/29/18at 13:05; Start 08/26/18 at 19:45 Haloperidol (Haldol) 5 mg TID PO Last administered on 08/27/18at 16:45; Start 08/27/18 at 09:00; Stop 08/27/18 at 17:28; Status DC Home Med (Med Rec Complete!) ASDIRECTED XX ; Start 08/26/18 at 17:30; Stop 08/26/18 at 17:30; Status DC Magnesium Hydroxide (Milk Of Magnesia) 30 ml DAILYPRN PRN PO CONSTIPATION; Start 08/26/18 at 19:45 Methadone HCl (Dolophine) 10 mg BID PO Last administered on 08/27/18 09:00; Start 08/27/18 at 09:00; Stop 08/27/18 at 17:24; Status DC Methadone HCl (Dolophine) 10 mg BID@1500,2100 PO Last administered on 09/01/18at 15:23; Start 08/31/18 at 15:00 Methadone HCl (Dolophine) 10 mg TID PO Last administered on 08/30/18at 20:04; Start 08/27/18 at 21:00; Stop 08/30/18 at 23:00; Status DC Methadone HCl (Dolophine) 20 mg QAM PO Last administered on 09/01/18at 08:22; Start 08/31/18 at 09:00 Prenat Multivit/ [place]/Iron/Folic Ac ( Vitamins) 1 tab DAILY PO Last administered on 09/01/18at 12:21; Start 09/01/18 at 09:00 Trazodone HCl (Desyrel) 50 mg QHSP PRN PO INSOMNIA Last administered on 08/31/18at 21:14; Start 08/26/18 at 19:45 Allergies Coded Allergies: No Known Allergies (Unverified , 08/26/18) JAYNA BELTRÁN MD Sep 01, 2018 16:50
--- NOTE | 2018-09-01 18:22 | MHIPNPDOC ---
[facility] Progress Note Progress Note DATE OF SERVICE: 09/01/18 HISTORY: "PT had her fiance call 911 due to feeling SI in regards to withdrawing from drug abuse" HISTORY: As per Ed report: "PT was originally seen and then demanded to AMA when she didn't like the treatment options that were discussed. PT was loud in the waiting room demanding a medicaid cab and she was denied due to AMA from treatment. She continued to escalate in the waiting room yelling that she was refused admission even though she was going to kill herself. Staff attempted to calm but PT got louder and more demanding and security called 911. [employer] responded but were no longer needed as PT was readmitted to [facility] for MHE. When PT got into her room attempts to discuss her behavior while she was in the waiting room did not go well "Well you people just throw us back on the street to " "I'll just kill myself upstairs" "I do not want to be admitted because you told me they won't help me" PT appears to have difficulty staying focused and most responses are minimal. When PT does not want to answer a question she would either blame others ot put her head under her blanket and not respond. She states she wants to if she has to k eep feeling like she does and will not CFS at this time. PT plans to overdose on sleeping pills if she continues to suffer with her current withdrawel symptoms. PT's fiance of 4 years is supportive and states it is not uncommon for PT to make depressive statements and just the other night he callled 911 as PT was unresponsive and possibly seizing from drug use. Once MHE was completed another staff approached this program writer to say that PT expressed she does not wish to interact with this program writer again and made insulting comments about this program writer's daughter. Reassured PT that she would not have to continue to interact with this program writer". VITAL SIGNS: See below. NEW TEST RESULTS: See below CURRENT MEDICATIONS: See below. MENTAL STATUS EXAMINATION: Patient is a 22-year old female, who is alert, cooperative, drssed n personal clothes. Speech: Is normal in rate, tone and volume. Language skills are good. Thought processes including: intact. Thought content: focused on getting methadone. Description of abnormal or psychotic thoughts: denies si, denies hi, denies thought delusions, denies AV hallucinations. Judgment: Poor. Insight: poor. Orientation: x 3. Recent and remote memory: intact. Attention span and concentration: good. Language: normal. Fund of knowledge: average. Mood: anxious. Affect: anxious. DIAGNOSES: 1. Other specified depressive disorder 2. R/O substance induced depression 3. Methadone, benzodiazepines, marihuana, methamphetamines use disorder ASSESSMENT: Patient's mental status exam has not changed much from yesterday.P atient is splitting, she went to another provider to ask for methadone increase, even when she had been told i was going to taper her methadone and this program writer told her I had to check with d/c planners if they had a program (for rehab) where she could be transferred but if she didn't she would have to be tapered down. patient says she wants to see her BF and I told her that he will need to show everyone that he is not bringing drugs with him, as apparently that was a problem with a previous hospitalization. I spoke with Dr. Ybarra from [facility], who said that her Urine chorionic gonadotropin increase is so minimal that he won't be able to see anything on the US until the levels are higher, so, tomorrow she will have blood drawn for another serum test and on Friday she will have the next one. He said that she can referred from here to his office or she can Op and be referred by her PCP. MANAGEMENT PLAN: Will start tapering methadone as follows: 20 mgs PO QAM, 5 mgs PO at 3 pm and 5 mgs at 9 pm. TIME SPENT: 20 minutes. Vital Signs Vital Signs Date Time Temp Pulse Resp B/P (MAP) Pulse Ox O2 Delivery O2 Flow Rate FiO2 09/01/18 15:23 66 14 09/01/18 06:31 98.9 100/59 (73) 08/26/18 19:44 95 Room Air Current Medications Current Medications Acetaminophen (Tylenol Tab) 650 mg Q6HP PRN PO HEADACHE or DISCOMFORT; Start 08/26/18 at 19:45 Al Hydrox/Mg Hydrox/Simethicone (Mylanta) 30 ml Q4HP PRN PO HEARTBURN/INDIGESTION; Start 08/26/18 at 19:45 Clonidine HCl (Catapres) 0.1 mg TID PO ; Start 08/27/18 at 16:00; Stop 08/27/18 at 21:12; Status DC Clonidine HCl (Catapres) 0.1 mg TID PRN PO CRAVINGS Last administered on 08/31/18at 21:14; Start 08/27/18 at 21:15 Diphenhydramine HCl (Benadryl) 50 mg BIDP PRN PO EPS Last administered on 08/29/18 13:05; Start 08/26/18 at 19:45 Haloperidol (Haldol) 5 mg TID PO Last administered on 08/27/18at 16:45; Start 08/27/18 at 09:00; Stop 08/27/18 at 17:28; Status DC Home Med (Med Rec Complete!) ASDIRECTED XX ; Start 08/26/18 at 17:30; Stop 08/26/18 at 17:30; Status DC Magnesium Hydroxide (Milk Of Magnesia) 30 ml DAILYPRN PRN PO CONSTIPATION; Start 08/26/18 at 19:45 Methadone HCl (Dolophine) 5 mg BID@1500,2100 PO ; Start 09/01/18 at 21:00 Methadone HCl (Dolophine) 10 mg BID PO Last administered on 08/27/18at 09:00; Start 08/27/18 at 09:00; Stop 08/27/18 at 17:24; Status DC Methadone HCl (Dolophine) 10 mg BID@1500,2100 PO Last administered on 09/01/18at 15:23; Start 08/31/18 at 15:00; Stop 09/01/18 at 16:53; Status DC Methadone HCl (Dolophine) 10 mg TID PO Last administered on 08/30/18at 20:04; Start 08/27/18 at 21:00; Stop 08/30/18 at 23:00; Status DC Methadone HCl (Dolophine) 20 mg QAM PO ; Start 09/02/18 at 09:00 Methadone HCl (Dolophine) 20 mg QAM PO Last administered on 09/01/18at 08:22; Start 08/31/18 at 09:00; Stop 09/01/18 at 16:51; Status DC Prenat Multivit/ [place]ell/Iron/Folic Ac ( Vitamins) 1 tab DAILY PO Last administered on 09/01/18at 12:21; Start 09/01/18 at 09:00 Trazodone HCl (Desyrel) 50 mg QHSP PRN PO INSOMNIA Last administered on 08/31/18at 21:14; Start 08/26/18 at 19:45 Allergies Coded Allergies: No Known Allergies (Unverified , 08/26/18) JAYNA BELTRÁN MD Sep 01, 2018 18:22
[2018-09-01] MEDS: METHADONE 5 MG TAB (S0109) PO SCH (20:09)
[2018-09-01] MEDS: traZODone 50 MG TAB PO PRN (20:55)
[2018-09-01] MEDS: cloNIDine 0.1 MG TAB PO PRN (20:56)
[2018-09-02 06:53] VITALS: BP 102/51
[2018-09-02] MEDS: diphenhydrAMINE 50 MG CAP PO PRN ×2 (06:55→21:33)
[2018-09-02] MEDS: PRENATAL VITAMINS CHEWABLE TABLET PO SCH (08:05)
[2018-09-02] MEDS ORDERED: METHADONE 10 MG TAB (S0109) PO SCH (09:00)
[2018-09-02] MEDS: MOM 30ML SUSPENSION UDC PO PRN (09:05)
--- NOTE | 2018-09-02 12:49 | MHIPNPDOC ---
[facility] Progress Note Progress Note DATE OF SERVICE: 09/02/18 HISTORY: As per Ed report: "PT was originally seen and then demanded to AMA when she didn't like the treatment options that were discussed. PT was loud in the waiting room demanding a medicaid cab and she was denied due to AMA from treatment. She continued to escalate in the waiting room yelling that she was refused admission even though she was going to kill herself. Staff attempted to calm but PT got louder and more demanding and security called 911. [employer] responded but were no longer needed as PT was readmitted to [facility] for MHE. When PT got into her room attempts to discuss her behavior while she was in the waiting room did not go well "Well you people just throw us back on the street to " "I'll just kill myself upstairs" "I do not want to be admitted because you told me they won't help me" PT appears to have difficulty staying focused and most responses are minimal. When PT does not want to answer a question she would either blame others ot put her head under her blanket and not respond. She states she wants to if she has to keep feeling like she does and will not CFS at this time. PT plans to overdose on sleeping pills if she continues to suffer with her current withdrawel symptoms. PT's fiance of 4 years is supportive and states it is not uncommon for PT to make depressive statements and just the other night he callled 911 as PT was unresponsive and possibly seizing from drug use. Once MHE was completed another staff approached this residential mortgage underwriter to say that PT expressed she does not wish to interact with this residential mortgage underwriter again and made insulting comments about this residential mortgage underwriter's daughter. Reassured PT that she would not have to continue to interact with this residential mortgage underwriter". Interval history: Says mood has improved on the unit. She has been social on the milieu and attending groups. Says sleep was poor last night and that she was sweating. Denies SI/HI/AVH/kristie. VITAL SIGNS: See below. NEW TEST RESULTS: See below, hcg trended up from 08/27/18, today's level at 167 CURRENT MEDICATIONS: See below. MENTAL STATUS EXAMINATION: Patient is a 22-year old female, who is alert, cooperative, drssed n personal clothes. Speech: Normal rate, rhythm, volume Language skills are good. Thought processes including: intact. Thought content: focused on getting methadone. Description of abnormal or psychotic thoughts: denies si, denies hi, denies AVH/kristie/paranoia. Judgment: Poor. Insight: Poor Orientation: x 3. Recent and remote memory: intact. Attention span and concentration: good. Language: normal. Fund of knowledge: average. Mood: "good" Affect: mild anxious, more calm today, mildly constricted DIAGNOSES: 1. Other specified depressive disorder 2. R/O substance induced depression 3. Methadone, benzodiazepines, marihuana, methamphetamines use disorder ASSESSMENT: Patient appears more calm and less anxious than yesterday. Tolerating her medications without side effects. Night sweats likely due to opioid withdrawals. Has not been taking medications including trazodone for sleep despite stating she has poor sleep, nor has she been taking 0.1 mg PRN clonidine. MANAGEMENT PLAN: Will continued tapering methadone: today was decreased to 15 mgs PO QAM, 5 mgs PO at 3 pm and 5 mgs at 9 pm. TIME SPENT: 10 minutes. Vital Signs Vital Signs Date Time Temp Pulse Resp B/P (MAP) Pulse Ox O2 Delivery O2 Flow Rate FiO2 09/02/18 08:06 58 16 09/02/18 06:53 98.6 102/51 (68) Laboratory Data [facility] Labs Laboratory Tests 2 09/02/18 06:17: Human Chorionic Gonadotropin, Quant 167 Current Medications Current Medications Acetaminophen (Tylenol Tab) 650 mg Q6HP PRN PO HEADACHE or DISCOMFORT; Start 08/26/18 at 19:45 Al Hydrox/Mg Hydrox/Simethicone (Mylanta) 30 ml Q4HP PRN PO HEART BURN/INDIGESTION Last administered on 09/01/18at 20:07; Start 08/26/18 at 19:45 Clonidine HCl (Catapres) 0.1 mg TID PO ; Start 08/27/18 at 16:00; Stop 08/27/18 at 21:12; Status DC Clonidine HCl (Catapres) 0.1 mg TID PRN PO CRAVINGS Last administered on 09/01/18 at 20:56; Start 08/27/18 at 21:15 Diphenhydramine HCl (Benadryl) 50 mg BIDP PRN PO EPS Last administered on 09/02/18 06:55; Start 08/26/18 at 19:45 Haloperidol (Haldol) 5 mg TID PO Last administered on 08/27/18 16:45; Start 08/27/18 at 09:00; Stop 08/27/18 at 17:28; Status DC Home Med (Med Rec Complete!) ASDIRECTED XX ; Start 08/26/18 at 17:30; Stop 08/26/18 at 17:30; Status DC Magnesium Hydroxide (Milk Of Magnesia) 30 ml DAILYPRN PRN PO CONSTIPATION Last administered on 09/02/18 09:05; Start 08/26/18 at 19:45 Methadone HCl (Dolophine) 5 mg BID@1500,2100 PO Last administered on 09/01/18 20:09; Start 09/01/18 at 21:00 Methadone HCl (Dolophine) 10 mg BID PO Last administered on 08/27/18 09:00; Start 08/27/18 at 09:00; Stop 08/27/18 at 17:24; Status DC Methadone HCl (Dolophine) 10 mg BID@1500,2100 PO Last administered on 09/01/18 15:23; Start 08/31/18 at 15:00; Stop 09/01/18 at 16:53; Status DC Methadone HCl (Dolophine) 10 mg TID PO Last administered on 08/30/18 20:04; Start 08/27/18 at 21:00; Stop 08/30/18 at 23:00; Status DC Methadone HCl (Dolophine) 20 mg QAM PO Last administered on 09/02/18 08:06; Start 09/02/18 at 09:00 Methadone HCl (Dolophine) 20 mg QAM PO Last administered on 09/01/18 08:22; Start 08/31/18 at 09:00; Stop 09/01/18 at 16:51; Status DC Prenat Multivit/ Missile Inspector Preflight/Iron/Folic Ac ( Vitamins) 1 tab DAILY PO Last administered on 09/02/18 08:05; Start 09/01/18 at 09:00 Trazodone HCl (Desyrel) 50 mg QHSP PRN PO INSOMNIA Last administered on 09/01/18 20:55; Start 08/26/18 at 19:45 Allergies Coded Allergies: No Known Allergies (Unverified , 08/26/18) RICCI BOWENS PGY-1 Sep 02, 2018 12:49
[2018-09-02] MEDS: METHADONE 5 MG TAB (S0109) PO SCH ×2 (15:46→20:12)
[2018-09-02 18:00] VITALS: BP 112/70
[2018-09-02] MEDS: ACETAMINOPHEN TAB 650MG DOSE (2X325MG) PO PRN (20:31)
[2018-09-02] MEDS: traZODone 50 MG TAB PO PRN (21:33)
[2018-09-02] MEDS: cloNIDine 0.1 MG TAB PO PRN (21:37)
[2018-09-03 06:56] VITALS: BP 121/68
[2018-09-03] MEDS: PRENATAL VITAMINS CHEWABLE TABLET PO SCH (08:30)
[2018-09-03] MEDS: METHADONE 5 MG TAB (S0109) PO SCH ×3 (08:32→20:26)
[2018-09-03] MEDS: MOM 30ML SUSPENSION UDC PO PRN (09:07)
[2018-09-03] MEDS: ACETAMINOPHEN TAB 650MG DOSE (2X325MG) PO PRN (16:58)
[2018-09-03 18:00] VITALS: BP 139/86
--- NOTE | 2018-09-03 18:22 | MHIPNPDOC ---
[facility] Progress Note Progress Note DATE OF SERVICE: 09/03/18 HISTORY: As per Ed report: "PT was originally seen and then demanded to AMA when she didn't like the treatment options that were discussed. PT was loud in the waiting room demanding a medicaid cab and she was denied due to AMA from treatment. She continued to escalate in the waiting room yelling that she was refused admission even though she was going to kill herself. Staff attempted to calm but PT got louder and more demanding and security called 911. [employer] responded but were no longer needed as PT was readmitted to [facility] for MHE. When PT got into her room attempts to discuss her behavior while she was in the waiting room did not go well "Well you people just throw us back on the street to " "I'll just kill myself upstairs" "I do not want to be admitted because you told me they won't help me" PT appears to have difficulty staying focused and most responses are minimal. When PT does not want to answer a question she would either blame others ot put her head under her blanket and not respond. She states she wants to if she has to keep feeling like she does and will not CFS at this time. PT plans to overdose on sleeping pills if she continues to suffer with her current withdrawel symptoms. PT's fiance of 4 years is supportive and states it is not uncommon for PT to make depressive statements and just the other night he callled 911 as PT was unresponsive and possibly seizing from drug use. Once MHE was completed another staff approached this pattern chart writer to say that PT expressed she does not wish to interact with this pattern chart writer again and made insulting comments about this pattern chart writer's daughter. Reassured PT that she would not have to continue to interact with this pattern chart writer". Interval history: Says mood has improved on the unit. She has been social on the milieu and attending groups. Says sleep was poor last night and that she was sweating. Denies SI/HI/AVH/kristie. VITAL SIGNS: See below. NEW TEST RESULTS: See below, hcg trended up from 08/27/18, today's level at 167 CURRENT MEDICATIONS: See below. MENTAL STATUS EXAMINATION: Patient is a 22-year old female, who is alert, cooperative, dressed in personal clothes. Speech: Normal rate, rhythm, volume Language skills are good. Thought processes including: intact. Thought content: focused on getting methadone Description of abnormal or psychotic thoughts: denies si, denies hi, denies AVH/kristie/paranoia. Judgment: Poor. Insight: Poor Orientation: x 3. Recent and remote memory: intact. Attention span and concentration: good. Language: normal. Fund of knowledge: average. Mood: "good" Affect: mild anxious, more calm today, mildly constricted DIAGNOSES: 1. Other specified depressive disorder 2. R/O substance induced depression 3. Methadone, benzodiazepines, marihuana, methamphetamines use disorder ASSESSMENT: discussed methadone subject with the patient who inisits that she w as feeling better with 40 mgs and not with 25. She says that when she was on 110 mgs., it was too much and now, she thinks is not enough because she is having night sweats. Discussed issues related to her and she said she wants to continue her , she wants to have her baby. She is requesting to be on an SSRI or Xanax at this time but at the same time she says she is not anxious/not depressed at this time because she is on methadone. Then I aske her why does she need to be on an SSRI or a tranquilizer if she is feeling Ok with methadone, and by OK she says she doesn't feel extremely anxious or depressed. When she was admitted she was depressed because she was still under the influence of multiple drugs, she had been hallucinating. she has medication seeking behavior. she has been interacting normally with other patients, has been social, she is not anxious at this time, she is not having panic attacks at this time. This pattern chart writer is trying to avoid giving her more medications because she is . MANAGEMENT PLAN: Will continued tapering methadone: today was decreased to 15 mgs PO QAM, 5 mgs PO at 3 pm and 5 mgs at 9 pm. TIME SPENT: 10 minutes. Vital Signs Vital Signs Date Time Temp Pulse Resp B/P (MAP) Pulse Ox O2 Delivery O2 Flow Rate FiO2 09/03/18 15:03 80 14 09/03/18 06:56 97.6 121/68 (85) Current Medications Current Medications Acetaminophen (Tylenol Tab) 650 mg Q6HP PRN PO HEADACHE or DISCOMFORT Last administered on 09/03/18at 16:58; Start 08/26/18 at 19:45 Al Hydrox/Mg Hydrox/Simethicone (Mylanta) 30 ml Q4HP PRN PO HEARTBURN/INDIGESTION Last administered on 09/01/18 20:07; Start 08/26/18 at 19:45 Clonidine HCl (Catapres) 0.1 mg TID PO ; Start 08/27/18 at 16:00; Stop 08/27/18 at 21:12; Status DC Clonidine HCl (Catapres) 0.1 mg TID PRN PO CRAVINGS Last administered on 09/02/18 21:37; Start 08/27/18 at 21:15 Diphenhydramine HCl (Benadryl) 50 mg BIDP PRN PO EPS Last administered on 21:33; Start 08/26/18 at 19:45 Haloperidol (Haldol) 5 mg TID PO Last administered on 08/27/18 16:45; Start 08/27/18 at 09:00; Stop 08/27/18 at 17:28; Status DC Home Med (Med Rec Complete!) ASDIRECTED XX ; Start 08/26/18 at 17:30; Stop 08/26/18 at 17:30; Status DC Magnesium Hydroxide (Milk Of Magnesia) 30 ml DAILYPRN PRN PO CONSTIPATION Last administered on 09/03/18 09:07; Start 08/26/18 at 19:45 Methadone HCl (Dolophine) 5 mg BID@1500,2100 PO Last administered on 09/03/18 15:03; Start 09/01/18 at 21:00 Methadone HCl (Dolophine) 10 mg BID PO Last administered on 08/27/18 09:00; Start 08/27/18 at 09:00; Stop 08/27/18 at 17:24; Status DC Methadone HCl (Dolophine) 10 mg BID@1500,2100 PO Last administered on 09/01/18 15:23; Start 08/31/18 at 15:00; Stop 09/01/18 at 16:53; Status DC Methadone HCl (Dolophine) 10 mg TID PO Last administered on 08/30/18 20:04; Start 08/27/18 at 21:00; Stop 08/30/18 at 23:00; Status DC Methadone HCl (Dolophine) 15 mg QAM PO Last administered on 09/03/18at 08:32; Start 09/03/18 at 09:00 Methadone HCl (Dolophine) 20 mg QAM PO Last administered on 09/02/18at 08:06; Start 09/02/18 at 09:00; Stop 09/02/18 at 12:33; Status DC Methadone HCl (Dolophine) 20 mg QAM PO Last administered on 09/01/18at 08:22; Start 08/31/18 at 09:00; Stop 09/01/18 at 16:51; Status DC Prenat Multivit/ Calender Runner/Iron/Folic Ac ( Vitamins) 1 tab DAILY PO Last administered on 09/03/18at 08:30; Start 09/01/18 at 09:00 Trazodone HCl (Desyrel) 50 mg QHSP PRN PO INSOMNIA Last administered on 09/02/18at 21:33; Start 08/26/18 at 19:45 Allergies Coded Allergies: No Known Allergies (Unverified , 08/26/18) JAYNA BELTRÁN MD Sep 03, 2018 17:20
[2018-09-03] MEDS: traZODone 50 MG TAB PO PRN (21:51)
[2018-09-03] MEDS: diphenhydrAMINE 50 MG CAP PO PRN (21:52)
[2018-09-03] MEDS: cloNIDine 0.1 MG TAB PO PRN (21:52)
[2018-09-04 06:38] VITALS: BP 119/65
[2018-09-04] MEDS: METHADONE 5 MG TAB (S0109) PO SCH ×3 (08:27→20:18)
[2018-09-04] MEDS: PRENATAL VITAMINS CHEWABLE TABLET PO SCH (08:27)
--- NOTE | 2018-09-04 16:15 | MHIPNPDOC ---
[facility] Progress Note Progress Note DATE OF SERVICE: 09/04/18 HISTORY: As per Ed report: "PT was originally seen and then demanded to AMA when she didn't like the treatment options that were discussed. PT was loud in the waiting room demanding a medicaid cab and she was denied due to AMA from treatment. She continued to escalate in the waiting room yelling that she was refused admission even though she was going to kill herself. Staff attempted to calm but PT got louder and more demanding and security called 911. [employer] responded but were no longer needed as PT was readmitted to [facility] for MHE. When PT got into her room attempts to discuss her behavior while she was in the waiting room did not go well "Well you people just throw us back on the street to " "I'll just kill myself upstairs" "I do not want to be admitted because you told me they won't help me" PT appears to have difficulty staying focused and most responses are minimal. When PT does not want to answer a question she would either blame others ot put her head under her blanket and not respond. She states she wants to if she has to keep feeling like she does and will not CFS at this time. PT plans to overdose on sleeping pills if she continues to suffer with her current withdrawel symptoms. PT's fiance of 4 years is supportive and states it is not uncommon for PT to make depressive statements and just the other night he callled 911 as PT was unresponsive and possibly seizing from drug use. Once MHE was completed another staff approached this check writer salesperson to say that PT expressed she does not wish to interact with this check writer salesperson again and made insulting comments about this check writer salesperson's daughter. Reassured PT that she would not have to continue to interact with this check writer salesperson". Interval history: Says mood has improved on the unit. She has been social on the milieu and attending groups. Says sleep was poor last night and that she was sweating. Denies SI/HI/AVH/kristie. VITAL SIGNS: See below. NEW TEST RESULTS: See below, hcg trended up from 08/27/18, today's level at 584 CURRENT MEDICATIONS: See below. MENTAL STATUS EXAMINATION: Patient is a 22-year old female, who is alert, cooperative, dressed in personal clothes. Speech: Normal rate, rhythm, volume Language skills are good. Thought processes including: intact. Thought content: focused on getting methadone Description of abnormal or psychotic thoughts: denies si, denies hi, denies AVH/kristie/paranoia. Judgment: Poor. Insight: Poor Orientation: x 3. Recent and remote memory: intact. Attention span and concentration: good. Language: normal. Fund of knowledge: average. Mood: "good" Affect: mild anxious, more calm today, mildly constricted DIAGNOSES: 1. Other specified depressive disorder 2. R/O substance induced depression 3. Methadone, benzodiazepines, marihuana, methamphetamines use disorder ASSESSMENT: Patient is complaining that she can't fall asleep with the Trazodone dose she has and I remind her that I can't give her more medications because she is . She agrees to not take more medications. She was warned that she will be discharged on Friday at 600 a.m without methadone that morning and she will go by cab to her Rehab Program. Her urine gonadotropin has been trending up and she is determined that she wants to have her baby but she continues to have drug/medication seeking behavior. SHE SHOULD NOT TAKE METHADONE ON THE DAY OF HER DISCHARGE. MANAGEMENT PLAN: Will continued tapering methadone: today was decreased to 15 mgs PO QAM, 5 mgs PO at 3 pm and 5 mgs at 9 pm. TIME SPENT: 20 minutes. Vital Signs Vital Signs Date Time Temp Pulse Resp B/P (MAP) Pulse Ox O2 Delivery O2 Flow Rate FiO2 09/04/18 08:27 60 12 09/04/18 06:38 97.0 119/65 (83) Laboratory Data 24[facility] Labs Laboratory Tests 2 09/04/18 10:15: Human Chorionic Gonadotropin, Quant 584 Current Medications Current Medications Acetaminophen (Tylenol Tab) 650 mg Q6HP PRN PO HEADACHE or DISCOMFORT Last administered on 09/03/18at 16:58; Start 08/26/18 at 19:45 Al Hydrox/Mg Hydrox/Simethicone (Mylanta) 30 ml Q4HP PRN PO HEARTBURN/INDIGESTION Last administered on 09/01/18at 20:07; Start 08/26/18 at 19:45 Clonidine HCl (Catapres) 0.1 mg TID PO ; Start 08/27/18 at 16:00; Stop 08/27/18 at 21:12; Status DC Clonidine HCl (Catapres) 0.1 mg TID PRN PO CRAVINGS Last administered on 09/03/18 21:52; Start 08/27/18 at 21:15 Diphenhydramine HCl (Benadryl) 50 mg BIDP PRN PO EPS Last administered on 21:52; Start 08/26/18 at 19:45 Haloperidol (Haldol) 5 mg TID PO Last administered on 08/27/18 16:45; Start 08/27/18 at 09:00; Stop 08/27/18 at 17:28; Status DC Home Med (Med Rec Complete!) ASDIRECTED XX ; Start 08/26/18 at 17:30; Stop 08/26/18 at 17:30; Status DC Magnesium Hydroxide (Milk Of Magnesia) 30 ml DAILYPRN PRN PO CONSTIPATION Last administered on 09/03/18 09:07; Start 08/26/18 at 19:45 Methadone HCl (Dolophine) 5 mg BID@1500,2100 PO Last administered on 09/03/18 20:26; Start 09/01/18 at 21:00 Methadone HCl (Dolophine) 10 mg BID PO Last administered on 08/27/18 09:00; Start 08/27/18 at 09:00; Stop 08/27/18 at 17:24; Status DC Methadone HCl (Dolophine) 10 mg BID@1500,2100 PO Last administered on 09/01/18 15:23; Start 08/31/18 at 15:00; Stop 09/01/18 at 16:53; Status DC Methadone HCl (Dolophine) 10 mg TID PO Last administered on 08/30/18at 20:04; Start 08/27/18 at 21:00; Stop 08/30/18 at 23:00; Status DC Methadone HCl (Dolophine) 15 mg QAM PO Last administered on 09/04/18at 08:27; Start 09/03/18 at 09:00 Methadone HCl (Dolophine) 20 mg QAM PO Last administered on 09/02/18 08:06; Start 09/02/18 at 09:00; Stop 09/02/18 at 12:33; Status DC Methadone HCl (Dolophine) 20 mg QAM PO Last administered on 09/01/18at 08:22; Start 08/31/18 at 09:00; Stop 09/01/18 at 16:51; Status DC Prenat Multivit/ [place]/Iron/Folic Ac ( Vitamins) 1 tab DAILY PO Last administered on 09/04/18at 08:27; Start 09/01/18 at 09:00 Trazodone HCl (Desyrel) 50 mg QHSP PRN PO INSOMNIA Last administered on 09/03/18at 21:51; Start 08/26/18 at 19:45 Allergies Coded Allergies: No Known Allergies (Unverified , 08/26/18) JAYNA BELTRÁN MD Sep 04, 2018 13:38
[2018-09-04 18:24] VITALS: BP 138/66
[2018-09-04] MEDS: traZODone 50 MG TAB PO PRN (21:48)
[2018-09-04] MEDS: diphenhydrAMINE 50 MG CAP PO PRN (21:48)
[2018-09-04] MEDS: cloNIDine 0.1 MG TAB PO PRN (21:49)
[2018-09-05 06:50] VITALS: BP 107/62
[2018-09-05] MEDS: PRENATAL VITAMINS CHEWABLE TABLET PO SCH (08:25)
[2018-09-05] MEDS: METHADONE 5 MG TAB (S0109) PO SCH ×3 (08:25→20:27)
[2018-09-05 12:25] VITALS: BP 100/65
[2018-09-05] MEDS: cloNIDine 0.1 MG TAB PO PRN ×2 (12:25→22:47)
[2018-09-05 18:00] VITALS: BP 123/72
[2018-09-05 22:47] VITALS: BP 126/78
[2018-09-05] MEDS: diphenhydrAMINE 50 MG CAP PO PRN (22:47)
[2018-09-05] MEDS: traZODone 50 MG TAB PO PRN (22:47)
[2018-09-06 06:38] VITALS: BP 153/84
[2018-09-06] MEDS: METHADONE 5 MG TAB (S0109) PO SCH ×3 (08:28→20:11)
[2018-09-06] MEDS: PRENATAL VITAMINS CHEWABLE TABLET PO SCH (08:29)
[2018-09-06 18:05] VITALS: BP 130/82
[2018-09-06] MEDS ORDERED: PRENCHW PO (20:42)
[2018-09-06] MEDS: traZODone 50 MG TAB PO PRN (22:02)
--- NOTE | 2018-09-07 20:58 | MHDSPDOC ---
[facility] Discharge Summary Discharge Summary DATE OF ADMISSION: Aug 26, 2018 at 19:37 DATE OF DISCHARGE: Sep 07, 2018 at 06:00 DISCHARGE DIAGNOSES: 1. Other specified mood disorder, r/o bipolar disorder 2. Drug induced depressive episode 3. Methadone, benzodiazepines, marihuana, methamphetamines use disorder 4. Generalized anxiety disorder REASON FOR ADMISSION: As per Ed report: "PT was originally seen and then demanded to AMA when she didn't like the treatment options that were discussed. PT was loud in the waiting room demanding a medicaid cab and she was denied due to AMA from treatment. She continued to escalate in the waiting room yelling that she was refused admission even though she was going to kill herself. Staff attempted to calm but PT got louder and more demanding and security called 911. [employer] responded but were no longer needed as PT was readmitted to [facility] for MHE. When PT got into her room attempts to discuss her behavior while she was in the waiting room did not go well "Well you people just throw us back on the street to " "I'll just kill myself upstairs" "I do not want to be admitted because you told me they won't help me" PT appears to have difficulty staying focused and most responses are minimal. When PT does not want to answer a question she would either blame others ot put her head under her blanket and not respond. She states she wants to if she has to keep feeling like she does and will not CFS at this time. PT plans to overdose on sleeping pills if she continues to suffer with her current withdrawel symptoms. PT's fiance of 4 years is supportive and states it is not uncommon for PT to make depressive statements and just the other night he callled 911 as PT was unresponsive and possibly seizing from drug use. Once MHE was completed another staff approached this insurance underwriter sales to say that PT expressed she does not wish to interact with this insurance underwriter sales again and made insulting comments about this insurance underwriter sales's daughter. Reassured PT that she would not have to continue to interact with this insurance underwriter sales". CONSULTANTS INVOLVED: Dr. Kraft, from [facility], did a consult over the phone. TREATMENT AND PROGRESS ON THE UNIT : Upon initial presentation the patient was extremely anxious, she had been severely agitated at the Ed, prompting staff to call the Police. She was given Haldol 10 mgs and Benadryl at the Ed and then, once again when she came to [facility] because she was still very anxious, agitated although she was able to be re directed according to staff. Her test was positive, therefore this insurance underwriter sales discontinued anti psychotic medications. She was very anxious when she remembered her methadone, she became restless and fidgety. When she didn't remember it, she seemed to be OK although she was distraught, had trouble focusing and paying attention. She exhibited drug seeking behavior and this insurance underwriter sales started her on 10 mgs PO BID, then, 24 hours later increased it to 30 mgs and during the weekend she requested another provider to increase it, so, he increased it to 40 mgs. she had reported that she was taking 110 mgs when she was attending a Rehab 9fairly recently). I spoke several times with her about the consequences that drugs could pose for her baby including the use of methadone and she told me it was safe to use during . This insurance underwriter sales responded it would affect his baby anyway but she said she was planning on taking methadone senior living during her and then quit. The patient questiones whys she had never taken an SSRI and this insurance underwriter sales told her that her mood fluctuations and anxiety were related to substance abuse but then, she said she really suffered from severe anxiety, she was trying to obtain benzodiazepines and SSRI's/SNRI's. The fact is that she was not anxious and when I told her she had not been anxious since she was on Methadone, she agreed to it. Isaías MarreroGyalison recommended to obtain two more serum tests because the among of human gonadotropin were very low and he said that she probably had become within the last two weeks and he would not be able to see anything in the ultrasound at this time and said she could be referred or she could call herself for an apppintment with an OBGYN or with him, once she was discharged. In fact the 2 other HCG measurements were trending up, being the last one of 584. Patient's mood and affect became stable since she was started on Methadone. She was not homicidal, not suicidal and not psychotic. she was maintained on 25 mgs of Methadone because this insurance underwriter sales told her it would be better for her to be on a lowest dose for her and for the baby. She refused to be weaned off it, she said she was going to work on this once she went to [facility] where she was going to f/u for her substance abuse problem. HOSPITAL COURSE: As above DISCHARGE ASSESSMENT: The patient was not homicidal, not suicidal and not psychotic at the time of her discharge. she was goal orientated, looking forward going to Rehab and taking good care of her child once this is born. She was sent via cab to an outpatient Rehab program. MENTAL STATUS EXAMINATION ON DISCHARGE: Patient is a 22-year old female, who is alert, cooperative, dressed in personal clothes. Speech: Normal rate, rhythm, volume Language skills are good. Thought processes including: intact. Thought content: focused on her discharge, her rehab Description of abnormal or psychotic thoughts: denies SI, denies HI, denies AVH/kristie/paranoia. Judgment: Limited Insight: Limited Orientation: x 3. Recent and remote memory: intact. Attention span and concentration: good. Language: normal. Fund of knowledge: average. Mood: "good" Affect: mildly anxious, less depressed, brighter affect MEDICATIONS ON DISCHARGE: Scheduled Pnv No.118/Iron Fumarate/FA ( 19 Chewable Tablet) 1 Each Tab.chew, 1 TAB PO DAILY for , #7 PLAN/FOLLOWUP ARRANGEMENTS: Follow Up Care Education Label * Mental Health Appt 1 * [facility] * Established With This Provider No * Therapist UNIQUE * Date Sep 11, 2018 * Time 08:00 * Address of Clinic or Practice [address] [place] [address] * * Additional information Please remember to bring your insurance card and photo ID. Follow Up Care Education Label * Chemical Dependency Appt1 * Medical Follow Up [facility] * Established With This Provider Yes * Date Sep 07, 2018 * Time 08:00 * Address of Clinic or Practice [address] [place] [address] * Follow Up Care Education Label * Medical * Medical Follow Up [facility] * Established With This Provider No * Date October 08, 2018 * Time 10:00 * Address of Clinic or Practice [address] [address], [facility] [address] * * Additional information Please come with your photo ID and insurance card. Follow Up Care Education Label * Mental Health Appt 2 * [facility] * Established With This Provider No * Therapist JERALD * Date October 06, 2018 * Time 13:00 * Address of Clinic or Practice [address] [place] [address] * The amount of time spent in the coordination of care for this patient was approximately 30 minutes. Vital Signs/I&Os Vital Signs Date Time Temp Pulse Resp B/P (MAP) Pulse Ox O2 Delivery O2 Flow Rate FiO2 09/06/18 20:11 68 14 09/06/18 18:05 99.1 130/82 (98) 09/06/18 09:09 Room Air Medications Scheduled Pnv No.118/Iron Fumarate/FA ( 19 Chewable Tablet) 1 Each Tab.chew, 1 TAB PO DAILY for , #7 Allergies Coded Allergies: No Known Allergies (Unverified , 08/26/18) JAYNA BELTRÁN MD Sep 07, 2018 20:44
== END 2018-09-07 06:00 | disposition home or self-care (01) | DRG 566 ==
LOC: M ED 14:18 → M ED INP 19:37 → M PSY 22:20
PROVIDERS: ADMIT Psychiatry & Neurology Psychiatry; ATTEND Psychiatry & Neurology Psychiatry
DX: O99.341 Other mental disorders complicating pregnancy, first trimester (principal); R45.851 Suicidal ideations; F12.90 Cannabis use, unspecified, uncomplicated; F41.1 Generalized anxiety disorder; F15.90 Other stimulant use, unspecified, uncomplicated; F31.9 Bipolar disorder, unspecified

== ENCOUNTER 2018-09-19 11:21 | Emergency (ER) | payer MEDICAID, OTHER ==
[~2018-09-19] VITALS: Ht 172.7 cm; Wt 62.7 kg
[~2018-09-19 11:21] MED LIST changes: +PRENCHW PO
[2018-09-19] MEDS ORDERED: METH10CO PO (11:30)
[2018-09-19] MEDS ORDERED: METH10TA2 PO (11:30)
[2018-09-19 12:28] VITALS: BP 112/68
== END 2018-09-19 12:38 | disposition home or self-care (01) ==
LOC: M ED 11:21
DX: O21.0 Mild hyperemesis gravidarum (principal); K92.0 Hematemesis; O99.611 Diseases of the digestive system complicating pregnancy, first trimester; O99.341 Other mental disorders complicating pregnancy, first trimester; F33.9 Major depressive disorder, recurrent, unspecified; Z79.891 Long term (current) use of opiate analgesic; Z87.891 Personal history of nicotine dependence; Z3A.01 Less than 8 weeks gestation of pregnancy

== ENCOUNTER → 2018-10-13 | Outpatient (CLI) | payer OTHER ==
[~2018-10-13] MED LIST changes: +METH10TA2 PO
== END ==
LOC: M SMT 10:33
PROVIDERS: ATTEND Advanced Practice Midwife
DX: O20.0 Threatened abortion (principal); Z3A.00 Weeks of gestation of pregnancy not specified

== ENCOUNTER → 2018-10-16 | Outpatient (CLI) | payer OTHER | LOC: M SMT 13:46 | PROVIDERS: ATTEND Advanced Practice Midwife | DX: O20.0 Threatened abortion (principal) ==

== ENCOUNTER 2018-10-28 15:57 | Emergency (ER) | payer OTHER ==
[~2018-10-28] VITALS: Ht 170.2 cm; Wt 59.1 kg
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
[2018-10-28] MEDS ORDERED: METHADONE 10 MG TAB (S0109) PO ONE ×2 (19:00→19:30)
[2018-10-28] MEDS ORDERED: PILL CUTTER 1 EACH XX ONE (19:07)
[2018-10-28 20:55] VITALS: BP 125/82
--- NOTE | 2018-10-28 21:41 | REP ---
Clinical: Trauma. Technique: AP and lateral views of the right knee. Findings: No acute fracture or dislocation. Skeletal structures, joint spaces, and surrounding soft tissues appear normal. No effusion. No subcutaneous emphysema or radiodense foreign body. Impression: No acute fracture or dislocation. Electronically Signed by Bridger Terrazas MD 10/28/2018 09:33 P
== END 2018-10-28 21:05 | disposition home or self-care (01) ==
LOC: M ED 15:57
DX: O03.9 Complete or unspecified spontaneous abortion without complication (principal); O9A.211 Injury, poisoning and certain other consequences of external causes complicating pregnancy, first trimester; S80.01XA Contusion of right knee, initial encounter; Y04.8XXA Assault by other bodily force, initial encounter; Y92.89 Other specified places as the place of occurrence of the external cause; Z3A.11 11 weeks gestation of pregnancy; O99.341 Other mental disorders complicating pregnancy, first trimester; F41.9 Anxiety disorder, unspecified; F33.9 Major depressive disorder, recurrent, unspecified; F10.11 Alcohol abuse, in remission; F11.11 Opioid abuse, in remission; Z79.891 Long term (current) use of opiate analgesic

== ENCOUNTER 2018-12-18 10:46 | Inpatient (IN) | payer MEDICAID, OTHER ==
[~2018-12-18] VITALS: Ht 172.7 cm; Wt 57.1 kg
[~2018-12-18 10:46] MED LIST changes: +NICOTINE 21MG/24HR 1 EA TRANSDERMAL TD SCH
[2018-12-18 11:51] LABS: HEMATOCRIT 42.3 % (36.0-47.0); HEMOGLOBIN 14.2 g/dl (12.0-15.5); MEAN CORPUSCULAR HEMOGLOBIN 29.6 pg (27.0-33.0); MEAN CORPUSCULAR HGB CONC 33.6 g/dl (32.0-36.5); MEAN CORPUSCULAR VOLUME 88.1 fl (80.0-96.0); PLATELET COUNT, AUTOMATED 178 10^3/uL (150-450); WHITE BLOOD COUNT 6.9 10^3/uL (4.0-10.0)
[2018-12-18 12:02] LABS: HCG, SERUM QUALITATIVE NEGATIVE (NEGATIVE)
[2018-12-18 12:21] LABS: ACETAMINOPHEN LEVEL < 2.0 UG/ML (10.0-30.0); ALBUMIN 3.8 GM/DL (3.2-5.2); ALT/SGPT 36 U/L (12-78); AMPHETAMINES LEVEL URINE NEGATIVE (NEGATIVE); BARBITURATES URINE NEGATIVE (NEGATIVE); BENZODIAZEPINES URINE POSITIVE (NEGATIVE); BILIRUBIN,DIRECT 0.2 MG/DL (0.0-0.2); BILIRUBIN,TOTAL 0.5 MG/DL (0.2-1.0); BLOOD UREA NITROGEN 7 MG/DL (7-18); CANNABINOIDS URINE POSITIVE (NEGATIVE); CARBON DIOXIDE LEVEL 27 MEQ/L (21-32); CHLORIDE LEVEL 107 MEQ/L (98-107); COCAINE METABOLITE URINE NEGATIVE (NEGATIVE); CREATININE FOR GFR 0.67 MG/DL (0.55-1.30); ETHYL ALCOHOL (ETHANOL) < 0.003 % (0.000-0.010); GLOMERULAR FILTRATION RATE > 60.0 (>60); GLUCOSE, FASTING 91 MG/DL (70-100); METHADONE URINE NEGATIVE (NEGATIVE); OPIATES URINE POSITIVE (NEGATIVE); PHENCYCLIDINE URINE NEGATIVE (NEGATIVE); SALICYLATE LEVEL < 1.7 MG/DL (5.0-30.0); SODIUM LEVEL 140 MEQ/L (136-145); THYROID STIMULATING HORMONE 0.784 uIU/ML (0.358-3.740); TOTAL PROTEIN 7.3 GM/DL (6.4-8.2)
[2018-12-18] MEDS ORDERED: MOM 30ML SUSPENSION UDC PO PRN (13:00)
[2018-12-18] MEDS ORDERED: MAALOX 30 ML SUSP *UDC PO PRN (13:00)
[2018-12-18] MEDS ORDERED: traZODone 50 MG TAB PO PRN (13:00)
[2018-12-18 15:26] VITALS: BP 133/86
[2018-12-18 16:58] VITALS: BP 133/86
[2018-12-18] MEDS: MULTIVITAMINS/MINERALS THERAP 1 TAB PO SCH (17:40)
[2018-12-18] MEDS: FOLIC ACID 1 MG TAB PO SCH (17:40)
[2018-12-18] MEDS: LORazepam 2 MG TAB PO PRN (19:12)
[2018-12-18] MEDS: THIAMINE 100 MG TAB PO SCH (21:00)
[2018-12-19 06:40] VITALS: BP 131/85
[2018-12-19 06:41] VITALS: BP 131/85
[2018-12-19] MEDS: FOLIC ACID 1 MG TAB PO SCH (09:00)
[2018-12-19] MEDS: MULTIVITAMINS/MINERALS THERAP 1 TAB PO SCH (09:00)
[2018-12-19] MEDS: THIAMINE 100 MG TAB PO SCH ×2 (09:00→20:03)
[2018-12-19 09:47] VITALS: BP 154/96
[2018-12-19 09:48] VITALS: BP 154/96
[2018-12-19] MEDS: LORazepam 2 MG TAB PO PRN (09:50)
[2018-12-19] MEDS: METHADONE 10 MG TAB (S0109) PO SCH ×2 (14:30→20:02)
[2018-12-19] MEDS: NICOTINE POLACRILEX 2 MG GUM PO PRN ×3 (14:30→18:43)
[2018-12-19] MEDS: IBUPROFEN 400 MG TAB PO PRN ×2 (16:42→20:56)
[2018-12-19 18:00] VITALS: BP 139/56
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
[2018-12-20 06:50] VITALS: BP 94/53
[2018-12-20 06:51] VITALS: BP 94/53
[2018-12-20] MEDS: NICOTINE POLACRILEX 2 MG GUM PO PRN ×4 (10:10→20:51)
[2018-12-20] MEDS: METHADONE 10 MG TAB (S0109) PO SCH ×3 (10:10→20:10)
[2018-12-20] MEDS: THIAMINE 100 MG TAB PO SCH ×2 (10:10→20:11)
[2018-12-20] MEDS: MULTIVITAMINS/MINERALS THERAP 1 TAB PO SCH (10:10)
[2018-12-20] MEDS: FOLIC ACID 1 MG TAB PO SCH (10:10)
[2018-12-20 12:11] VITALS: BP 114/84
[2018-12-20] MEDS: IBUPROFEN 400 MG TAB PO PRN (17:30)
[2018-12-20] MEDS: VENLAFAXINE **XR** 75MG CAPSULE PO SCH (17:31)
[2018-12-20 18:00] VITALS: BP 115/79
[2018-12-20 20:11] VITALS: BP 115/79
[2018-12-20] MEDS: traZODone 100 MG TAB PO PRN (21:56)
[2018-12-21 06:43] VITALS: BP 93/52
--- NOTE | 2018-12-21 07:52 | MHHPE ---
DATE OF ADMISSION: 12/19/2018 HISTORY OF PRESENT ILLNESS: This is one of multiple admissions for this 23-year-old white woman with a significant history of substance abuse and depression. She came to the emergency room stating that she did not feel that she as safe. She said she was depressed, she had suicidal thoughts with a plan to cut. She had been to court this morning and stated that she had suicidal ideations with a plan to cut. She had been picked up by the police on a bench warrant for petty wise. She indicated she had used three bags of heroin yesterday and she took five Xanaxs yesterday morning. She says that she felt like she was detoxing and that she was afraid she was going to cut herself because she wanted the pain to go away. The patient tells me today that she had been attending the methadone program in [place] for about 3 months and she got kicked out of the program 3 weeks ago because they found that she had been abusing benzodiazepines. She says that subsequent to that she started to abuse heroin again too. Today she states that she is feeling very depressed and she admits that she had suicidal thoughts of cutting herself, but she is able to contract for safety today. She is complaining that she cannot even get up from bed and she has not been able to eat anything, she is sweating alot, and she says that she is having a lot of pain and wants me to prescribe her something for her withdrawal symptoms. PAST PSYCHIATRIC HISTORY: She was last hospitalized at [facility] on 08/26 until 09/07/2018. She was discharged with the diagnosis of other specified mood disorder, rule out bipolar disorder, drug induced depressive disorder, methadone, benzodiazepines, cannabis, methamphetamine use disorder and generalized anxiety disorder. The patient was not discharged on any medications. She was sent via a cab to outpatient rehabilitation program. Patient had been admitted in January 2018 before that. She has been treated with Suboxone before, but she the Suboxone upsets her stomach and this is why she prefers methadone. According to the patient a history of prior suicidal attempts, but it is always by overdosing on the street drugs. FAMILY HISTORY: She says her mother has had trouble with abusing heroin also. ABUSE HISTORY: She denies any history of any physical or sexual abuse. MEDICAL HISTORY: She denies any medical problems. SUBSTANCE ABUSE HISTORY: This is a noted above. She has been abusing benzodiazepines and cannabis and opioids in the form of heroin. REVIEW OF SYSTEMS: Vital signs: Blood pressure 131/85, pulse 67, respiration 18. Appearance: Patient does not appear to be in any apparent distress. Neuromuscular system: The patient's gait is normal and there is no involuntary movements noted. All other systems were reviewed and found to be negative other than the fact that she is complaining of having no appetite and having some other withdrawal symptoms like sweating a lot and some body aches. MENTAL STATUS EXAMINATION: The patient basically is in bed, covered up with a sheet. Eye contact is very poor. She is quite irritable, became a little more cooperative with questions as we proceeded. There is no formal thought disorder noted. She says her mood is depressed and anxious. Affect is appropriate to mood. She is not psychotic. She admits that she was having suicidal ideations although she says she can contract for safety now. She denies homicidal ideations. Concentration is fair. Insight and judgment is poor. Memory is intact. DIAGNOSIS: Unspecified depressive disorder. Rule out substance induced depressive disorder. Opioid use disorder. Cannabis use disorder. Angiolytic use disorder (Xanax). TREATMENT PLAN: At this point I will go ahead and start her on methadone 10 mg three times a day. We will continue to monitor her for her depressive symptomatology, I suspect this might get better as she starts feeling better from her withdrawal symptoms. The plan is to see whether she needs to have any antidepressant or not. Also we will monitor her for continued resolution of suicidal ideations.
--- NOTE | 2018-12-21 07:53 | MHIPN ---
DATE: 12/20/2018 The patient today states that she is feeling better physically because she is not having as much withdrawal as I started her on the methadone. She does say that she continues to be very depressed. She has been tearful. Her mood is 7 out of 10 with 10 being the most depressed. She feels hopeless, helpless, and worthless. She has been evicted from her apartment and so she has no place to go. She is supposed to go to the [facility] the morning that she was admitted to the hospital. MENTAL STATUS EXAMINATION: She is alert and oriented times three. She is pleasant, cooperative. She responds in simple one or two word answers that are appropriate. She is tearful at times. Mood is depressed. Affect is full range and appropriate. She is not psychotic, suicidal or homicidal. Concentration is fair. Memory intact. Insight and judgment fair. DIAGNOSES: 1. Other specified depressive disorder. 2. Rule out substance induced depression. 3. Opioid use disorder. 4. Cannabis use disorder. 5. Anxiolytic use disorder. TREATMENT PLAN: At this point, we will continue to monitor the patient for continued elevation and stabilization of her mood and continued resolution of any suicidal ideations. WALLY
[2018-12-21] MEDS: METHADONE 10 MG TAB (S0109) PO SCH ×2 (08:07→20:17)
[2018-12-21] MEDS: VENLAFAXINE **XR** 75MG CAPSULE PO SCH (08:07)
[2018-12-21] MEDS: FOLIC ACID 1 MG TAB PO SCH (08:48)
[2018-12-21] MEDS: MULTIVITAMINS/MINERALS THERAP 1 TAB PO SCH (08:48)
[2018-12-21] MEDS: THIAMINE 100 MG TAB PO SCH (08:48)
--- NOTE | 2018-12-21 10:15 | MHIPNPDOC ---
[facility] Progress Note Progress Note DATE OF SERVICE: 12/21/18 HISTORY: Per Dr. Dixon admit note "This is one of multiple admissions for this 23-year-old white woman with a significant history of substance abuse and depression. She came to the emergency room stating that she did not feel that she as safe. She said she was depressed, she had suicidal thoughts with a plan to cut. She had been to court this morning and stated that she had suicidal ideations with a plan to cut. She had been picked up by the police on a bench warrant for petty wise. She indicated she had used three bags of heroin yesterday and she took five Xanaxs yesterday morning. She says that she felt like she was detoxing and that she was afraid she was going to cut herself because she wanted the pain to go away. The patient tells me today that she had been attending the methadone program in [place] for about 3 months and she got kicked out of the program 3 weeks ago because they found that she had been abusing benzodiazepines. She says that subsequent to that she started to abuse heroin again too. Today she states that she is feeling very depressed and she admits that she had suicidal thoughts of cutting herself, but she is able to contract for safety today. She is complaining that she cannot even get up from bed and she has not been able to eat anything, she is sweating alot, and she says that she is having a lot of pain and wants me to prescribe her something for her withdrawal symptoms." VITAL SIGNS: See below. NEW TEST RESULTS: See below. CURRENT MEDICATIONS: See below. MENTAL STATUS EXAMINATION: Seen during treatment team. Eye contact is very poor. She is calm and appears fatigued slightly, cooperative with questions as we proceeded. There is no formal thought disorder noted. She says her mood is ok and denies anxiety. Affect is depressed and constricted. She is not psychotic. She denies SI. She denies homicidal ideations. Concentration is fair. Insight and judgment is poor. Memory is intact. DIAGNOSES: Unspecified depressive disorder. Rule out substance induced depressive disorder. Opioid use disorder. Cannabis use disorder. Angiolytic use disorder (Xanax). ASSESSMENT:Pt seen and states that her mood is "ok" and is tolerating her effexor xr and finding it beneficial for her mood. She appears flat, fatigued, and constricted in affect. She is cooperative. States she tolerating her methadone taper and denies symptoms opiate withdrawal. Denies symptoms of benzodiazepine withdrawal and is no long requiring ativan based on [facility] protocol parameters. States she's being social on the milieu which is beneficial. States she slept well last night. Feels she is tolerating her medications and they're beneficial. She is attending some groups and finding them helpful. She denies SI/HI, hallucinations, delusions. Pt feels safe here. MANAGEMENT PLAN: continue plan. continue methadone taper Methadone 10mg bid trazodone 50mg qhs prn insomnia effexor xr 75mg daily TIME SPENT: 30 minutes. Vital Signs Vital Signs Date Time Temp Pulse Resp B/P (MAP) Pulse Ox O2 Delivery O2 Flow Rate FiO2 12/21/18 06:43 98.9 50 14 93/52 (66) 12/20/18 20:11 98 12/20/18 12:58 Room Air Current Medications Current Medications Medications (Trade) Dose Ordered Sig/Solis Route PRN Reason Start Time Stop Time Status Last Admin Dose Admin Al Hydrox/Mg Hydrox/Simethicone (Mylanta) 30 ml Q4HP PRN PO HEARTBURN/INDIGESTION 12/18/18 13:00 Folic Acid (Folic Acid) 1 mg DAILY PO 12/18/18 09:00 12/20/18 10:10 Home Med (Med Rec Complete!) ASDIRECTED XX 12/18/18 14:00 12/18/18 14:00 DC Ibuprofen (Advil) 600 mg Q4HP PRN PO PAIN 12/18/18 13:00 12/20/18 17:30 Lorazepam (Ativan) 2 mg ASDIRECTED PRN PO SEE PROTOCOL 12/18/18 15:30 12/19/18 13:37 DC 12/19/18 09:50 Magnesium Hydroxide (Milk Of Magnesia) 30 ml DAILYPRN PRN PO CONSTIPATION 12/18/18 13:00 Methadone HCl (Dolophine) 10 mg BID PO 12/21/18 09:00 12/21/18 08:07 Methadone HCl (Dolophine) 10 mg TID PO 12/19/18 14:00 12/21/18 08:00 DC 12/20/18 20:10 Multivitamins (Theragram-M) 1 tab DAILY PO 12/18/18 09:00 12/20/18 10:10 Nicotine (Nicoderm Cq 21mg) 1 patch DAILY TD 12/18/18 09:00 12/18/18 19:17 DC Nicotine (Nicorette) 2 mg Q2HP PRN PO SMOKING CESSATION 12/18/18 19:15 12/20/18 20:51 Thiamine HCl (Thiamine HCl) 100 mg BID PO 12/18/18 21:00 12/21/18 20:59 12/20/18 10:10 Trazodone HCl (Desyrel) 50 mg QHSP PRN PO INSOMNIA 12/18/18 13:00 12/20/18 15:16 DC 12/19/18 20:55 Trazodone HCl (Desyrel) 100 mg QHSP PRN PO INSOMNIA 12/20/18 15:15 12/20/18 21:56 Venlafaxine HCl (Effexor Xr) 75 mg QAM PO 12/20/18 09:00 12/21/18 08:07 Allergies Coded Allergies: No Known Allergies (Unverified , 08/26/18) CELIA TONY DO Dec 21, 2018 9:29 am
[2018-12-21] MEDS: NICOTINE POLACRILEX 2 MG GUM PO PRN (17:02)
[2018-12-21 18:00] VITALS: BP 108/69
[2018-12-21 20:33] VITALS: BP 108/69
[2018-12-21] MEDS: IBUPROFEN 400 MG TAB PO PRN (21:26)
[2018-12-21] MEDS: traZODone 100 MG TAB PO PRN (22:06)
[2018-12-22 06:51] VITALS: BP 94/47
[2018-12-22] MEDS: MULTIVITAMINS/MINERALS THERAP 1 TAB PO SCH (09:00)
[2018-12-22] MEDS: FOLIC ACID 1 MG TAB PO SCH (09:00)
[2018-12-22] MEDS: METHADONE 10 MG TAB (S0109) PO SCH (09:45)
[2018-12-22] MEDS: VENLAFAXINE **XR** 75MG CAPSULE PO SCH (09:45)
--- NOTE | 2018-12-22 09:47 | MHIPNPDOC ---
[facility] Progress Note Progress Note DATE OF SERVICE: 12/22/18 HISTORY: Per Dr. Dixon admit note "This is one of multiple admissions for this 23-year-old white woman with a significant history of substance abuse and depression. She came to the emergency room stating that she did not feel that she as safe. She said she was depressed, she had suicidal thoughts with a plan to cut. She had been to court this morning and stated that she had suicidal ideations with a plan to cut. She had been picked up by the police on a bench warrant for petty wise. She indicated she had used three bags of heroin yesterday and she took five Xanaxs yesterday morning. She says that she felt like she was detoxing and that she was afraid she was going to cut herself because she wanted the pain to go away. The patient tells me today that she had been attending the methadone program in [place] for about 3 months and she got kicked out of the program 3 weeks ago because they found that she had been abusing benzodiazepines. She says that subsequent to that she started to abuse heroin again too. Today she states that she is feeling very depressed and she admits that she had suicidal thoughts of cutting herself, but she is able to contract for safety today. She is complaining that she cannot even get up from bed and she has not been able to eat anything, she is sweating alot, and she says that she is having a lot of pain and wants me to prescribe her something for her withdrawal symptoms." VITAL SIGNS: See below. NEW TEST RESULTS: See below. CURRENT MEDICATIONS: See below. MENTAL STATUS EXAMINATION: Seen in her room in bed. Eye contact is very poor. She is calm and appears fatigued slightly, cooperative with questions as we proceeded. There is no formal thought disorder noted. She says her mood is ok and denies anxiety. Affect is depressed and constricted, states she's just tired as I woke her up this morning to speak with me. She is not psychotic. She denies SI. She denies homicidal ideations. Concentration is fair. Insight and judgment is fair. Memory is intact. DIAGNOSES: Unspecified depressive disorder. Rule out substance induced depressive disorder. Opioid use disorder. Cannabis use disorder. Angiolytic use disorder (Xanax). ASSESSMENT:Pt seen and states that her mood is "ok" and is tolerating her effexor xr and finding it beneficial for her mood. She appears flat and states she just tired and I woke her up to speak with me today. She is cooperative. States she tolerating her methadone taper and denies symptoms opiate withdrawal. Denies symptoms of benzodiazepine withdrawal and is no long requiring ativan based on [facility] protocol parameters. States she's being social on the milieu which is beneficial. States she slept well last night. Feels she is tolerating her medications and they're beneficial. She is attending some groups and finding them helpful. She denies SI/HI, hallucinations, delusions. Pt feels safe here. MANAGEMENT PLAN: continue plan. continue methadone taper Methadone 10mg daily trazodone 50mg qhs prn insomnia effexor xr 75mg daily TIME SPENT: 30 minutes. Vital Signs Vital Signs Date Time Temp Pulse Resp B/P (MAP) Pulse Ox O2 Delivery O2 Flow Rate FiO2 12/22/18 06:51 97.3 50 12 94/47 (63) 12/21/18 11:54 Room Air 12/20/18 20:11 98 Current Medications Current Medications Medications (Trade) Dose Ordered Sig/Solis Route PRN Reason Start Time Stop Time Status Last Admin Dose Admin Al Hydrox/Mg Hydrox/Simethicone (Mylanta) 30 ml Q4HP PRN PO HEARTBURN/INDIGESTION 12/18/18 13:00 Folic Acid (Folic Acid) 1 mg DAILY PO 12/18/18 09:00 12/20/18 10:10 Home Med (Med Rec Complete!) ASDIRECTED XX 12/18/18 14:00 12/18/18 14:00 DC Ibuprofen (Advil) 600 mg Q4HP PRN PO PAIN 12/18/18 13:00 12/21/18 21:26 Lorazepam (Ativan) 2 mg ASDIRECTED PRN PO SEE PROTOCOL 12/18/18 15:30 12/19/18 13:37 DC 12/19/18 09:50 Magnesium Hydroxide (Milk Of Magnesia) 30 ml DAILYPRN PRN PO CONSTIPATION 12/18/18 13:00 Methadone HCl (Dolophine) 10 mg BID PO 12/21/18 09:00 12/21/18 20:17 Methadone HCl (Dolophine) 10 mg TID PO 12/19/18 14:00 12/21/18 08:00 DC 12/20/18 20:10 Multivitamins (Theragram-M) 1 tab DAILY PO 12/18/18 09:00 12/20/18 10:10 Nicotine (Nicoderm Cq 21mg) 1 patch DAILY TD 12/18/18 09:00 12/18/18 19:17 DC Nicotine (Nicorette) 2 mg Q2HP PRN PO SMOKING CESSATION 12/18/18 19:15 12/21/18 17:02 Thiamine HCl (Thiamine HCl) 100 mg BID PO 12/18/18 21:00 12/21/18 20:59 DC 12/20/18 10:10 Trazodone HCl (Desyrel) 50 mg QHSP PRN PO INSOMNIA 12/18/18 13:00 12/20/18 15:16 DC 12/19/18 20:55 Trazodone HCl (Desyrel) 100 mg QHSP PRN PO INSOMNIA 12/20/18 15:15 12/21/18 22:06 Venlafaxine HCl (Effexor Xr) 75 mg QAM PO 12/20/18 09:00 12/21/18 08:07 Allergies Coded Allergies: No Known Allergies (Unverified , 08/26/18) CELIA TONY DO Dec 22, 2018 9:47 am
[2018-12-22] MEDS ORDERED: METHADONE 10 MG TAB (S0109) PO ONE (10:00)
[2018-12-22] MEDS: NICOTINE POLACRILEX 2 MG GUM PO PRN (15:56)
[2018-12-22 18:08] VITALS: BP 107/67
[2018-12-22] MEDS: IBUPROFEN 400 MG TAB PO PRN (19:43)
[2018-12-22] MEDS: traZODone 100 MG TAB PO PRN (21:57)
[2018-12-23 06:29] VITALS: BP 109/56
[2018-12-23] MEDS: FOLIC ACID 1 MG TAB PO SCH (08:36)
[2018-12-23] MEDS: VENLAFAXINE **XR** 75MG CAPSULE PO SCH (08:36)
[2018-12-23] MEDS: MULTIVITAMINS/MINERALS THERAP 1 TAB PO SCH (08:36)
[2018-12-23] MEDS ORDERED: VENL75CA47 PO (08:53)
[2018-12-23] MEDS ORDERED: TRAZ10TA PO (08:53)
--- NOTE | 2018-12-23 08:54 | MHDSPDOC ---
[facility] Discharge Summary Discharge Summary DATE OF ADMISSION: Dec 18, 2018 at 12:57 pm DATE OF DISCHARGE: December 23, 2018 DISCHARGE DIAGNOSES: Unspecified depressive disorder. Rule out substance induced depressive disorder. Opioid use disorder. Cannabis use disorder. Angiolytic use disorder (Xanax). REASON FOR ADMISSION: Per Dr. Dixon admit note "This is one of multiple admissions for this 23-year-old white woman with a significant history of substance abuse and depression. She came to the emergency room stating that she did not feel that she as safe. She said she was depressed, she had suicidal thoughts with a plan to cut. She had been to court this morning and stated that she had suicidal ideations with a plan to cut. She had been picked up by the police on a bench warrant for petty wise. She indicated she had used three bags of heroin yesterday and she took five Xanaxs yesterday morning. She says that she felt like she was detoxing and that she was afraid she was going to cut herself because she wanted the pain to go away. The patient tells me today that she had been attending the methadone program in [place] for about 3 months and she got kicked out of the program 3 weeks ago because they found that she had been abusing benzodiazepines. She says that subsequent to that she started to abuse heroin again too. Today she states that she is feeling very depressed and she admits that she had suicidal thoughts of cutting herself, but she is able to contract for safety today. She is complaining that she cannot even get up from bed and she has not been able to eat anything, she is sweating alot, and she says that she is having a lot of pain and wants me to prescribe her something for her withdrawal symptoms." CONSULTANTS INVOLVED: none TREATMENT AND PROGRESS ON THE UNIT : Pt was admitted to [facility], seen for psychiatric assessment and started on effexor xr 75mg daily for mood and anxiety. She was provided trazodone 100mg qhs prn insomnia. She was place on a [facility] protocol for benzodiazepine withdrawal but did not require any ativan during her stay due to not have withdrawal symptoms. She ws placed on a methadone taper for opiate withdrawal that she tolerated well and denied withdrawal symptoms thru out the taper and completed the taper. Pt found her medications beneficial and tolerated them well. She attended groups daily during her stay. Her symptoms improved with treatment. On day of discharge she denied depression, anxiety, insomnia, SI/HI, hallucinations, delusions. She was discharged home with follow-up at [facility]. She felt safe for discharge. DISCHARGE ASSESSMENT: Pt seen and states that her mood is "good" and she's looking forward to going home today. She is tolerating her effexor xr and finding it beneficial for her mood. She appears euthymic and full range. She is cooperative. States she tolerated her methadone taper and denies symptoms opiate withdrawal. Denies symptoms of benzodiazepine withdrawal and is not requiring ativan based on [facility] protocol parameters. States she's being social on the milieu which is beneficial. States she slept well last night. Feels she is tolerating her medications and they're beneficial. She is attending groups and finding them helpful. She denies depression, anxiety, insomnia, SI/HI, hallucinations, delusions. Pt feels safe to be discharged home today. MENTAL STATUS EXAMINATION ON DISCHARGE: Pt seen and states she feels good. Eye contact is good. She is calm and cooperative. There is no formal thought disorder noted. She says her mood is "good" and denies anxiety. Affect is euthymic, full, congruent. She is not psychotic. She denies SI. She denies homicidal ideations. Concentration is good. Insight and judgment is good. Memory is intact. MEDICATIONS ON DISCHARGE: trazodone 100mg qhs prn insomnia effexor xr 75mg daily PLAN/FOLLOWUP ARRANGEMENTS: D/c home with follow-up at [facility]. The amount of time spent in the coordination of care for this patient was approximately 30 minutes. Vital Signs/I&Os Vital Signs Date Time Temp Pulse Resp B/P (MAP) Pulse Ox O2 Delivery O2 Flow Rate FiO2 12/23/18 06:29 99.4 50 12 109/56 (73) 12/22/18 18:08 97 12/22/18 10:27 Room Air Medications No Active Prescriptions or Reported Meds Allergies Coded Allergies: No Known Allergies (Unverified , 08/26/18) CELIA TONY DO Dec 23, 2018 8:54 am
== END 2018-12-23 10:30 | disposition home or self-care (01) | DRG 754 ==
LOC: M ED 10:46 → M ED INP 12:57 → M PSY 14:40
PROVIDERS: ADMIT Psychiatry & Neurology Psychiatry; ATTEND Psychiatry & Neurology Psychiatry
DX: F32.9 Major depressive disorder, single episode, unspecified (principal); B18.2 Chronic viral hepatitis C; F11.14 Opioid abuse with opioid-induced mood disorder; F12.10 Cannabis abuse, uncomplicated; F19.10 Other psychoactive substance abuse, uncomplicated; F17.210 Nicotine dependence, cigarettes, uncomplicated; Z81.1 Family history of alcohol abuse and dependence

== ENCOUNTER 2019-01-11 01:45 | Emergency (ER) | payer MEDICAID, OTHER ==
[~2019-01-11] VITALS: Ht 167.6 cm; Wt 56.4 kg
[~2019-01-11 01:45] MED LIST changes: -NICOTINE 21MG/24HR 1 EA TRANSDERMAL TD SCH; +TRAZ1TAB12 PO; +VENL75CA47 PO
[2019-01-11] MEDS ORDERED: ACETAMINOPHEN TAB 650MG DOSE (2X325MG) PO ONE (02:45)
[2019-01-11 03:07] LABS: AMPHETAMINES LEVEL URINE NEGATIVE (NEGATIVE); BARBITURATES URINE NEGATIVE (NEGATIVE); BENZODIAZEPINES URINE NEGATIVE (NEGATIVE); CANNABINOIDS URINE POSITIVE (NEGATIVE); COCAINE METABOLITE URINE NEGATIVE (NEGATIVE); METHADONE URINE NEGATIVE (NEGATIVE); OPIATES URINE POSITIVE (NEGATIVE); PHENCYCLIDINE URINE NEGATIVE (NEGATIVE)
[2019-01-11 03:16] LABS: HEMATOCRIT 41.2 % (36.0-47.0); HEMOGLOBIN 13.6 g/dl (12.0-15.5); MEAN CORPUSCULAR HEMOGLOBIN 28.7 pg (27.0-33.0); MEAN CORPUSCULAR VOLUME 86.9 fl (80.0-96.0); PLATELET COUNT, AUTOMATED 197 10^3/uL (150-450); RED BLOOD COUNT 4.74 10^6/uL (4.00-5.40); WHITE BLOOD COUNT 9.7 10^3/uL (4.0-10.0)
[2019-01-11 03:23] LABS: ACETAMINOPHEN LEVEL < 2.0 UG/ML (10.0-30.0); ALBUMIN 4.2 GM/DL (3.2-5.2); ALT/SGPT 34 U/L (12-78); BILIRUBIN,DIRECT < 0.1 MG/DL (0.0-0.2); BILIRUBIN,TOTAL 0.3 MG/DL (0.2-1.0); BLOOD UREA NITROGEN 9 MG/DL (7-18); CALCIUM LEVEL 9.6 MG/DL (8.5-10.1); CARBON DIOXIDE LEVEL 29 MEQ/L (21-32); CHLORIDE LEVEL 107 MEQ/L (98-107); CREATININE FOR GFR 0.75 MG/DL (0.55-1.30); ETHYL ALCOHOL (ETHANOL) < 0.003 % (0.000-0.010); GLOMERULAR FILTRATION RATE > 60.0 (>60); GLUCOSE, FASTING 99 MG/DL (70-100); POTASSIUM SERUM 4.1 MEQ/L (3.5-5.1); SALICYLATE LEVEL 1.8 MG/DL (5.0-30.0); SODIUM LEVEL 142 MEQ/L (136-145); TOTAL PROTEIN 8.3 GM/DL (6.4-8.2)
--- NOTE | 2019-01-11 03:46 | REPVR ---
EXAM: CT Maxillofacial Without Contrast EXAM DATE/TIME: 01/11/2019 3:13 AM CLINICAL HISTORY: 23 years old, female; Other: AMS; Additional info: AMS, trauma, facial pain TECHNIQUE: Imaging protocol: Computed tomography images of the face without contrast. Coronal and sagittal reformatted images were created and reviewed. Radiation optimization: All CT scans at this facility use at least one of these dose optimization techniques: automated exposure control; mA and/or kV adjustment per patient size (includes targeted exams where dose is matched to clinical indication); or iterative reconstruction. COMPARISON: No relevant prior studies available. FINDINGS: Orbits: The globes appear intact. Sinuses: No fluid levels. Bones/joints: No displaced fractures or dislocations. Soft tissues: Right malar and perinasal soft tissue swelling. IMPRESSION: Right malar and perinasal soft tissue swelling. No displaced fractures or dislocations. Electronically signed by: Shabbir Collazo On 01/11/2019 03:46:14 AM
--- NOTE | 2019-01-11 03:51 | REPVR ---
EXAM: CT Head Without Contrast EXAM DATE/TIME: 01/11/2019 3:13 AM CLINICAL HISTORY: 23 years old, female; Altered mental status/memory loss; Additional info: AMS, trauma, facial pain TECHNIQUE: Imaging protocol: Computed tomography images of the head without contrast. Radiation optimization: All CT scans at this facility use at least one of these dose optimization techniques: automated exposure control; mA and/or kV adjustment per patient size (includes targeted exams where dose is matched to clinical indication); or iterative reconstruction. COMPARISON: CT Head without contrast 02/08/2017 6:13 AM FINDINGS: Brain: No acute intracranial hemorrhage or mass effect. No discrete geographic area of hypoattenuation to suggest territorial infarct identified at this time. Ventricles: No ventriculomegaly. Bones/joints: No acute fracture. Sinuses: Visualized sinuses are unremarkable. No fluid levels. Mastoid air cells: Visualized mastoid air cells are well aerated. No mastoid effusion. Soft tissues: Unremarkable. IMPRESSION: No acute intracranial abnormality. Electronically signed by: Shabbir Collazo On 01/11/2019 03:51:17 AM
--- NOTE | 2019-01-11 03:55 | REPVR ---
EXAM: CT Cervical Spine Without Contrast EXAM DATE/TIME: 01/11/2019 3:13 AM CLINICAL HISTORY: 23 years old, female; Other: AMS; Additional info: AMS, trauma, facial pain TECHNIQUE: Imaging protocol: Computed tomography images of the cervical spine without contrast. Coronal and sagittal reformatted images were created and reviewed. Radiation optimization: All CT scans at this facility use at least one of these dose optimization techniques: automated exposure control; mA and/or kV adjustment per patient size (includes targeted exams where dose is matched to clinical indication); or iterative reconstruction. COMPARISON: No relevant prior studies available. FINDINGS: Vertebrae: No acute fracture. Alignment is preserved. Discs/Spinal canal/Neural foramina: The bony spinal canal is grossly patent. Soft tissues: Unremarkable. Lungs: Lung apices are normal. IMPRESSION: No acute bony abnormalities of the cervical spine. Electronically signed by: Shabbir Collazo On 01/11/2019 03:55:08 AM
[2019-01-11 10:35] VITALS: BP 116/76
== END 2019-01-11 10:39 | disposition home or self-care (01) ==
LOC: M ED 01:45
DX: F32.9 Major depressive disorder, single episode, unspecified (principal); F11.20 Opioid dependence, uncomplicated; Z79.899 Other long term (current) drug therapy
CPT/HCPCS: 70450; 70486; 72125; 80048; 80076; 80307; 84443; 85027; 99284; G0480

== ENCOUNTER 2019-03-08 14:37 | Emergency (ER) | payer OTHER ==
[~2019-03-08] VITALS: Ht 172.7 cm; Wt 53.6 kg
[~2019-03-08 14:37] MED LIST changes: +TRAZ10TA PO; -TRAZ1TAB12 PO
[2019-03-08] MEDS ORDERED: SUBO8MIS (15:00)
[2019-03-08 18:22] VITALS: BP 120/66
== END 2019-03-08 18:22 | disposition home or self-care (01) ==
LOC: M ED 14:37
DX: N63.20 Unspecified lump in the left breast, unspecified quadrant (principal); F17.210 Nicotine dependence, cigarettes, uncomplicated

== ENCOUNTER 2019-03-24 16:49 | Emergency (ER) | payer OTHER ==
[~2019-03-24 16:49] MED LIST changes: +SUBO8MIS
[2019-03-24] MEDS ORDERED: NS 1,000 ML IV ONE (17:15)
[2019-03-24 17:54] LABS: BASO % 0.4 % (0.0-1.0); EOS # 0.1 10^3/uL (0.0-0.5); EOS % 1.3 % (0.0-3.0); HEMATOCRIT 43.9 % (36.0-47.0); HEMOGLOBIN 14.1 g/dl (12.0-15.5); LYMPH # 2.9 10^3/uL (1.5-5.0); LYMPH % 26.2 % (24.0-44.0); MEAN CORPUSCULAR HEMOGLOBIN 28.6 pg (27.0-33.0); MEAN CORPUSCULAR HGB CONC 32.1 g/dl (32.0-36.5); MONO # 0.7 10^3/uL (0.0-0.8); MONO % 6.8 % (0.0-5.0); NEUTROPHILS # 7.1 10^3/uL (1.5-8.5); NEUTROPHILS % 64.9 % (36.0-66.0); RED BLOOD COUNT 4.93 10^6/uL (4.00-5.40); WHITE BLOOD COUNT 10.9 10^3/uL (4.0-10.0)
[2019-03-24 18:18] LABS: AMPHETAMINES LEVEL URINE NEGATIVE (NEGATIVE); BARBITURATES URINE NEGATIVE (NEGATIVE); BENZODIAZEPINES URINE NEGATIVE (NEGATIVE); CANNABINOIDS URINE POSITIVE (NEGATIVE); COCAINE METABOLITE URINE NEGATIVE (NEGATIVE); METHADONE URINE POSITIVE (NEGATIVE); OPIATES URINE POSITIVE (NEGATIVE); PHENCYCLIDINE URINE NEGATIVE (NEGATIVE)
[2019-03-24 18:27] LABS: ACETAMINOPHEN LEVEL < 2.0 UG/ML (10.0-30.0); ALBUMIN 3.9 GM/DL (3.2-5.2); ALT/SGPT 79 U/L (12-78); BILIRUBIN,DIRECT < 0.1 MG/DL (0.0-0.2); BILIRUBIN,TOTAL 0.4 MG/DL (0.2-1.0); BLOOD UREA NITROGEN 13 MG/DL (7-18); CALCIUM LEVEL 9.4 MG/DL (8.5-10.1); CARBON DIOXIDE LEVEL 30 MEQ/L (21-32); CHLORIDE LEVEL 101 MEQ/L (98-107); CPK CREATINE PHOSPHOKINASE 413 U/L (26-192); CREATININE FOR GFR 1.12 MG/DL (0.55-1.30); ETHYL ALCOHOL (ETHANOL) < 0.003 % (0.000-0.010); GLOMERULAR FILTRATION RATE > 60.0 (>60); GLUCOSE, FASTING 98 MG/DL (70-100); SALICYLATE LEVEL < 1.7 MG/DL (5.0-30.0); SODIUM LEVEL 139 MEQ/L (136-145); THYROID STIMULATING HORMONE 0.413 uIU/ML (0.358-3.740); TOTAL PROTEIN 8.3 GM/DL (6.4-8.2)
[2019-03-24 18:29] LABS: POTASSIUM SERUM 4.5 MEQ/L (3.5-5.1)
[2019-03-24 21:30] VITALS: BP 93/50
== END 2019-03-24 21:32 | disposition home or self-care (01) ==
LOC: M ED 16:49 → EDBD 16:49 → M ED 21:32
DX: F11.229 Opioid dependence with intoxication, unspecified (principal); M62.82 Rhabdomyolysis; J45.909 Unspecified asthma, uncomplicated; B19.20 Unspecified viral hepatitis C without hepatic coma; F17.210 Nicotine dependence, cigarettes, uncomplicated
CPT/HCPCS: 36415; 80048; 80076; 80307; 82550; 84443; 85025; 93041; 94760; 99285; G0480

== ENCOUNTER → 2019-04-16 | Outpatient (CLI) | payer OTHER ==
[2019-04-16 10:58] LABS: HEMATOCRIT 39.9 % (36.0-47.0); HEMOGLOBIN 12.8 g/dl (12.0-15.5); MEAN CORPUSCULAR HEMOGLOBIN 28.6 pg (27.0-33.0); MEAN CORPUSCULAR HGB CONC 32.1 g/dl (32.0-36.5); MEAN CORPUSCULAR VOLUME 89.3 fl (80.0-96.0); PLATELET COUNT, AUTOMATED 194 10^3/uL (150-450); RED BLOOD COUNT 4.47 10^6/uL (4.00-5.40)
[2019-04-16 11:25] LABS: ALBUMIN 3.8 GM/DL (3.2-5.2); ALT/SGPT 62 U/L (12-78); BILIRUBIN,TOTAL 0.6 MG/DL (0.2-1.0); BLOOD UREA NITROGEN 12 MG/DL (7-18); CALCIUM LEVEL 8.9 MG/DL (8.5-10.1); CARBON DIOXIDE LEVEL 33 MEQ/L (21-32); CHLORIDE LEVEL 100 MEQ/L (98-107); CREATININE FOR GFR 0.82 MG/DL (0.55-1.30); GLOMERULAR FILTRATION RATE > 60.0 (>60); GLUCOSE, FASTING 97 MG/DL (70-100); POTASSIUM SERUM 3.5 MEQ/L (3.5-5.1); SODIUM LEVEL 140 MEQ/L (136-145); TOTAL PROTEIN 8.1 GM/DL (6.4-8.2)
[2019-04-16 12:33] LABS: CHLAMYDIA DNA AMPLIFICATION NEGATIVE (NEGATIVE); GC DNA AMPLIFICATION NEGATIVE (NEGATIVE); HCG, SERUM QUALITATIVE NEGATIVE (NEGATIVE)
[2019-04-16 12:40] LABS: HEPATITIS B SURFACE ANTIGEN NEGATIVE (NEGATIVE)
[2019-04-16 13:09] LABS: HIV 1&2 SCREEN CENTAUR NEGATIVE (NEGATIVE)
[2019-04-16 13:17] LABS: HEPATITIS C VIRUS ABY INDEX > 11.0 INDEX (<0.8)
--- NOTE | 2019-04-17 00:02 | ECGEPIP ---
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
== END ==
LOC: M LAB 09:47
PROVIDERS: ATTEND Family Medicine
DX: F11.20 Opioid dependence, uncomplicated (principal); R94.31 Abnormal electrocardiogram [ECG] [EKG]

== ENCOUNTER → 2019-04-16 | Outpatient (CLI) | payer OTHER ==
--- NOTE | 2019-04-16 13:20 | REP ---
DIAGNOSTIC MAMMOGRAM LEFT BREAST WITH 3-D TOMOSYNTHESIS: No family history of breast cancer. Tyrer-Cuzick lifetime risk of breast cancer 9.5%. MLO, ML and CC views of the left breast are performed with 3-D tomosynthesis. There is heterogeneously dense fibroglandular tissue throughout the left breast. Patient reports a palpable lump inferomedial to the nipple anteriorly. The area is marked in the skin with a triangular marker. At that location there is a nodule of fat which may represent a lipoma or oil cyst. It measures 9 mm in diameter. This is benign. There is no other evidence of mass or clustered microcalcifications in the left breast. IMPRESSION: BIRADS 2: BI-RADS/ACR category 2 mammogram. Benign Findings. At the site of the palpable lump near the left nipple inferomedially there is a round fat density 9 mm in diameter which is well circumscribed and represents either lipoma or oil cyst. This is benign. No other evidence of mass or clustered microcalcifications. This mammogram was interpreted with the aid of an FDA-approved computer-aided detection system. The patient states he/she had a clinical breast exam in 03/2019. The patient letter being requested is M2. Recommend clinical correlation and followup. Electronically Signed by Mendez Woody MD 04/19/2019 09:31 A
== END ==
LOC: M RAD 09:50
PROVIDERS: ATTEND Nurse Practitioner Family
DX: N63.20 Unspecified lump in the left breast, unspecified quadrant (principal)
CPT/HCPCS: 77065; G0279

== ENCOUNTER 2019-06-14 13:01 | Emergency (ER) | payer OTHER ==
[~2019-06-14] VITALS: Ht 170.2 cm; Wt 65.1 kg
[~2019-06-14 13:01] MED LIST changes: -TRAZ10TA PO; +TRAZ1TAB12 PO
[2019-06-14] MEDS ORDERED: PRAZ2CAP (13:11)
[2019-06-14] MEDS ORDERED: BUSP10TA (13:11)
[2019-06-14] MEDS ORDERED: TRAZ-257 (13:11)
[2019-06-14] MEDS ORDERED: ARIP1TAB (13:11)
[2019-06-14] MEDS ORDERED: METH5TA PO (13:11)
[2019-06-14 16:59] LABS: CHLAMYDIA DNA AMPLIFICATION NEGATIVE (NEGATIVE); GC DNA AMPLIFICATION NEGATIVE (NEGATIVE)
[2019-06-14] MEDS ORDERED: FLAG500T PO (17:08)
[2019-06-14 17:14] VITALS: BP 119/71
== END 2019-06-14 17:16 | disposition home or self-care (01) ==
LOC: M ED 13:01
DX: N76.0 Acute vaginitis (principal); F17.218 Nicotine dependence, cigarettes, with other nicotine-induced disorders; F10.10 Alcohol abuse, uncomplicated; F11.10 Opioid abuse, uncomplicated

== ENCOUNTER → 2019-06-22 | Outpatient (REF) | payer OTHER, MEDICAID ==
[~2019-06-22] MED LIST changes: +ARIP1TAB; +BUSP10TA; +FLAG500T PO; +METH5TA PO; +PRAZ2CAP; +TRAZ-257
== END ==
LOC: M LAB REF 13:27
PROVIDERS: ATTEND Physician Assistant
DX: Z12.4 Encounter for screening for malignant neoplasm of cervix (principal)

== ENCOUNTER → 2019-10-19 | Outpatient (CLI) | payer OTHER ==
--- NOTE | 2019-10-20 02:36 | REP ---
Clinical: Anatomical evaluation. Comparison: None . Findings: Examination demonstrates a single live intrauterine in cephalic presentation. motion is identified by technologist. Placenta is noted fundal and grade I without evidence for placenta previa or abruption. Amniotic fluid volume is normal. Cervix measures 3.5 cm in length and appears closed. No evidence for nuchal cord. Gestational age by current measurements 18 weeks 4 days with KENY 03/17/2020 . FHR equals 140 beats per minute. BPD 4.3 cm 19 weeks 0 days HC 15.8 cm 18 weeks 5 days AC 12.8 cm 18 weeks 3 days FL 2.8 cm 18 weeks 4 days HL 2.9 cm 19 weeks 4 days HC/AC ratio 1.23 Estimated weight 245 grams ( 45th percentile). Anatomical assessment demonstrates normal structures including cranium, choroid plexus, cavum, cerebellum/posterior fossa, facial features, lungs, four-chamber heart/ventricular outflow tracts, diaphragm, stomach, cord insertion/three-vessel cord, kidneys/bladder, and extremities. Impression: Single live intrauterine in cephalic presentation demonstrating appropriate interval growth. Limited evaluation of the spine. Remainder of the anatomical assessment is complete and normal.
== END ==
LOC: M WHC 12:39
PROVIDERS: ATTEND Advanced Practice Midwife
DX: O99.335 Smoking (tobacco) complicating the puerperium (principal); F17.200 Nicotine dependence, unspecified, uncomplicated; Z3A.18 18 weeks gestation of pregnancy

== ENCOUNTER 2019-11-18 14:10 | Emergency (ER) | payer MEDICAID, OTHER ==
[~2019-11-18] VITALS: Ht 170.2 cm; Wt 65.9 kg
[2019-11-18 16:42] LABS: APPEARANCE, URINE HAZY (CLEAR); BACTERIA, URINE AUTO NEGATIVE (NEGATIVE); BILIRUBIN, URINE AUTO NEGATIVE (NEGATIVE); BLOOD, URINE BLOOD NEGATIVE (NEGATIVE); COLOR, URINE YELLOW (YELLOW); GLUCOSE, URINE (UA) AUTO NEGATIVE (NEGATIVE); KETONE, URINE AUTO 2+ mg/dL (NEGATIVE); LEUKOCYTE ESTERASE, URINE AUTO 1+ (NEGATIVE); MUCUS, URINE MODERATE (NEGATIVE); NITRITE, URINE AUTO NEGATIVE (NEGATIVE); PROTEIN, URINE AUTO 1+ mg/dL (NEGATIVE); RBC, URINE AUTO 3 /HPF (0-3); SQUAMOUS EPITHELIAL CELL UR AU 15 /HPF (0-6); UROBILINOGEN, URINE AUTO 0.2 mg/dL (0.0-2.0); WBC, URINE AUTO 2 /HPF (0-3)
--- NOTE | 2019-11-18 17:20 | REP ---
OB ULTRASOUND: Real-time sonographic evaluation of the gravid uterus performed. There is a single living intrauterine gestation with an estimated gestational age 22 weeks 6 days, EDC 03/17/2020. Today's measurements indicate appropriate growth. Biometry and Growth: BPD 55 mm = 22 weeks 5 days, 40th percentile HC 208 mm = 22 weeks 6 days, 51st percentile AC 177 mm = 22 weeks 4 days, 45th percentile FL 40 mm = 22 weeks 6 days, 51st percentile HC/AC ratio 1.17 within normal range 1.04 to 1.23 Estimated weight 532 grams, 42nd percentile. SEEN/GROSSLY UNREMARKABLE Lateral ventricles Yes Posterior fossa Yes Upper lip Yes Four-chamber heart Yes LVOT Yes RVOT Yes Stomach Yes Cord insertion Yes Three vessel cord Yes Kidneys Yes Bladder Yes Spine Yes Cervical length: Closed and measures 4.9 cm in length. heart rate: 144 beats per minute. position: Vertex. Placenta: Posterior and grade 0 with no previa or abruption. Amniotic fluid: Within normal limits. Electronically Signed by Mendez Woody MD 11/19/2019 01:16 P
[2019-11-18 18:37] LABS: BASO % 0.1 % (0.0-1.0); HEMATOCRIT 36.5 % (36.0-47.0); HEMOGLOBIN 12.3 g/dl (12.0-15.5); LYMPH # 2.5 10^3/uL (1.5-5.0); LYMPH % 17.8 % (24.0-44.0); MEAN CORPUSCULAR HEMOGLOBIN 29.6 pg (27.0-33.0); MEAN CORPUSCULAR HGB CONC 33.7 g/dl (32.0-36.5); MEAN CORPUSCULAR VOLUME 87.7 fl (80.0-96.0); MONO # 0.8 10^3/uL (0.0-0.8); MONO % 5.6 % (0.0-5.0); NEUTROPHILS # 10.6 10^3/uL (1.5-8.5); NEUTROPHILS % 75.6 % (36.0-66.0); PLATELET COUNT, AUTOMATED 206 10^3/uL (150-450); RED BLOOD COUNT 4.16 10^6/uL (4.00-5.40); WHITE BLOOD COUNT 13.9 10^3/uL (4.0-10.0)
[2019-11-18 19:05] LABS: ALT/SGPT 20 U/L (12-78); BILIRUBIN,DIRECT 0.2 MG/DL (0.0-0.2); BILIRUBIN,TOTAL 0.4 MG/DL (0.2-1.0); BLOOD UREA NITROGEN 5 MG/DL (7-18); CALCIUM LEVEL 8.8 MG/DL (8.5-10.1); CARBON DIOXIDE LEVEL 21 MEQ/L (21-32); CHLORIDE LEVEL 106 MEQ/L (98-107); GLOMERULAR FILTRATION RATE > 60.0 (>60); GLUCOSE, FASTING 72 MG/DL (70-100); LIPASE 44 U/L (73-393); POTASSIUM SERUM 3.5 MEQ/L (3.5-5.1); SODIUM LEVEL 137 MEQ/L (136-145); TOTAL PROTEIN 7.1 GM/DL (6.4-8.2)
[2019-11-18] MEDS ORDERED: METHADONE 10 MG TAB (S0109) PO ONE (19:15)
[2019-11-18] MEDS ORDERED: ONDANSETRON 4 MG ORAL DISINTEGRATING TAB PO ONE (19:30)
[2019-11-18 20:34] VITALS: BP 111/61
== END 2019-11-18 20:45 | disposition home or self-care (01) ==
LOC: M ED 14:10
DX: O99.322 Drug use complicating pregnancy, second trimester (principal); F11.23 Opioid dependence with withdrawal; Z3A.22 22 weeks gestation of pregnancy
CPT/HCPCS: 36415; 76816; 80048; 80076; 81001; 83690; 85025; 87086; 99284; Q0162

== ENCOUNTER 2019-11-20 10:21 | Emergency (ER) | payer MEDICAID ==
[~2019-11-20] VITALS: Ht 172.7 cm; Wt 70.5 kg
[2019-11-20] MEDS ORDERED: ONDANSETRON 4 MG ORAL DISINTEGRATING TAB PO ONE (11:00)
[2019-11-20 11:45] LABS: BASO % 0.1 % (0.0-1.0); HEMATOCRIT 35.3 % (36.0-47.0); HEMOGLOBIN 11.9 g/dl (12.0-15.5); LYMPH # 1.5 10^3/uL (1.5-5.0); LYMPH % 15.4 % (24.0-44.0); MEAN CORPUSCULAR HEMOGLOBIN 29.6 pg (27.0-33.0); MEAN CORPUSCULAR HGB CONC 33.7 g/dl (32.0-36.5); MEAN CORPUSCULAR VOLUME 87.8 fl (80.0-96.0); MONO # 0.4 10^3/uL (0.0-0.8); MONO % 4.1 % (0.0-5.0); NEUTROPHILS # 7.6 10^3/uL (1.5-8.5); NEUTROPHILS % 79.6 % (36.0-66.0); PLATELET COUNT, AUTOMATED 199 10^3/uL (150-450); RED BLOOD COUNT 4.02 10^6/uL (4.00-5.40); WHITE BLOOD COUNT 9.5 10^3/uL (4.0-10.0)
[2019-11-20 12:04] LABS: ALT/SGPT 27 U/L (12-78); BILIRUBIN,DIRECT < 0.1 MG/DL (0.0-0.2); BILIRUBIN,TOTAL 0.4 MG/DL (0.2-1.0); BLOOD UREA NITROGEN 5 MG/DL (7-18); CALCIUM LEVEL 8.2 MG/DL (8.5-10.1); CARBON DIOXIDE LEVEL 24 MEQ/L (21-32); CHLORIDE LEVEL 104 MEQ/L (98-107); CREATININE FOR GFR 0.59 MG/DL (0.55-1.30); GLOMERULAR FILTRATION RATE > 60.0 (>60); GLUCOSE, FASTING 72 MG/DL (70-100); POTASSIUM SERUM 3.7 MEQ/L (3.5-5.1); SODIUM LEVEL 136 MEQ/L (136-145)
[2019-11-20] MEDS ORDERED: ONDA4TAB6 PO (12:13)
[2019-11-20 12:34] VITALS: BP 113/65
[2019-11-21] MEDS ORDERED: FLAG500T PO (19:35)
== END 2019-11-20 12:40 | disposition home or self-care (01) ==
LOC: M ED 10:21
DX: O21.9 Vomiting of pregnancy, unspecified (principal); O99.322 Drug use complicating pregnancy, second trimester; F11.20 Opioid dependence, uncomplicated; Z3A.24 24 weeks gestation of pregnancy
CPT/HCPCS: 80048; 80076; 81001; 85025; 87086; 99283; Q0162

== ENCOUNTER 2019-11-21 17:55 | Outpatient (CLI) | payer MEDICAID ==
[~2019-11-21] VITALS: Ht 172.7 cm; Wt 66.1 kg
[~2019-11-21 17:55] MED LIST changes: +ONDA4TAB6 PO
[2019-11-21 18:18] VITALS: BP 128/64
--- NOTE | 2019-11-21 19:33 | IPNPDOC ---
Obstetrical Progress Note Date of Service Nov 21, 2019 Subjective 23-year-old 5, para 2 who presents at 23 weeks with complaints of leakage of fluid. She reports a gush of fluid. She denies any other further leakage. Denies any vaginal bleeding or contractions. O: vss AF Reassuring tracing Gen: well appearing abd: gravid, ttp SSE: neg Nitrazine,pooling. Fern neg. Wet prep + clue cells TAUS: active fetus, adequate fluid A: 23-year-old 5, para 2 at 23 weeks with bacterial vaginosis. No signs of ruptured membranes. Reassuring status P: Home with labor precautions. Follow-up at OB appointment. Metronidazole twice a day for 7 days Tamie Ybarra MD Objective Vital Signs Date Time Temp Pulse Resp B/P (MAP) Pulse Ox O2 Delivery O2 Flow Rate FiO2 11/21/19 18:18 98.4 74 18 128/64 (85) Tocometer Contractions: No Sterile Vaginal Examination Dilation: None Assessment and Plan Age: 23 : 5 Livin Status: Reassuring Additional Comments Bacterial vaginosis. Prescription for metronidazole twice a day for 7 days TAMIE YBARRA MD. Nov 21, 2019 19:33
[2019-11-21] MEDS ORDERED: FLAG500T PO (19:35)
== END 2019-11-21 19:25 ==
LOC: M LDO 17:55
PROVIDERS: ATTEND Obstetrics & Gynecology
DX: O23.592 Infection of other part of genital tract in pregnancy, second trimester (principal); N76.0 Acute vaginitis; Z3A.23 23 weeks gestation of pregnancy

== ENCOUNTER → 2019-12-08 | Outpatient (CLI) | payer MEDICAID, OTHER ==
--- NOTE | 2019-12-08 23:16 | REP ---
REASON FOR EXAM: Assess growth. The prior exam of 11/18/2019 showed normal anatomy. Multiple ultrasonographic images of the gravid uterus show a single living intrauterine gestation in the breech presentation. Doppler interrogation of the heart shows a heart rate of 143 beats per minute. The placenta is posterior and not low lying. The subjective amniotic fluid volume is within normal limits. The cervix measures 3 cm in length and is closed. CHART: BPD 5.9 cm = 24 weeks 1 day HC 23.3 cm = 25 weeks 2 days AC 21.7 cm = 26 weeks 1 day FL 4.7 cm = 25 weeks 3 days The estimated weight is 855 grams, which is at the 46th percentile for a 25-week 5-day gestational age. IMPRESSION: Single living intrauterine gestation, as described above, with an estimated gestational age of 25 weeks 1 day via composite criteria and an estimated date of delivery of 03/21/2020 by today's exam.
== END ==
LOC: M WHC 13:10
PROVIDERS: ATTEND Advanced Practice Midwife
DX: Z34.82 Encounter for supervision of other normal pregnancy, second trimester (principal); Z3A.23 23 weeks gestation of pregnancy

== ENCOUNTER → 2020-01-11 | Outpatient (REF) | payer MEDICAID, OTHER ==
[2020-02-11 14:51] LABS: CHLAMYDIA DNA AMPLIFICATION NEGATIVE (NEGATIVE); GC DNA AMPLIFICATION NEGATIVE (NEGATIVE)
== END ==
LOC: M SFHCWAGY 13:17
PROVIDERS: ATTEND Advanced Practice Midwife
DX: Z34.82 Encounter for supervision of other normal pregnancy, second trimester (principal)

== ENCOUNTER → 2020-02-09 | Outpatient (REF) | payer MEDICAID, OTHER | LOC: M LAB REF 15:53 | PROVIDERS: ATTEND Surgery | DX: Z20.828 Contact with and (suspected) exposure to other viral communicable diseases (principal) ==

== ENCOUNTER → 2020-02-17 | Outpatient (CLI) | payer MEDICAID, OTHER ==
[2020-02-17 13:47] LABS: HEPATITIS B SURFACE ANTIGEN NEGATIVE (NEGATIVE)
[2020-02-17 14:15] LABS: HEPATITIS B CORE ANTIBODY IGM NEGATIVE (NEGATIVE); HIV 1&2 SCREEN CENTAUR NEGATIVE (NEGATIVE)
[2020-02-17 14:16] LABS: HEPATITIS A ANTIBODY IGM NEGATIVE (NEGATIVE)
[2020-02-17 14:31] LABS: HEPATITIS C VIRUS ABY INDEX > 11.0 INDEX (<0.8)
== END ==
LOC: M PLALAB 10:32
PROVIDERS: ATTEND Advanced Practice Midwife
DX: Z34.83 Encounter for supervision of other normal pregnancy, third trimester (principal); Z3A.00 Weeks of gestation of pregnancy not specified

== ENCOUNTER 2021-10-13 13:57 | Emergency (ER) | payer OTHER ==
[~2021-10-13] VITALS: Ht 172.7 cm; Wt 63.6 kg
[~2021-10-13 13:57] MED LIST changes: +ARIP10TA32; -ARIP1TAB; +DOXY-443 PO; -DOXY100C37 PO; +GABA-283 PO; -GABA-845 PO; +METH-1177 PO; -METH10TA2 PO
[2021-10-13] MEDS ORDERED: ACETAMINOPHEN 500 MG TAB PO ONE (14:40)
[2021-10-13 20:15] VITALS: BP 100/62
== END 2021-10-13 21:50 | disposition home or self-care (01) ==
LOC: EDBD 13:57 → M ED 13:57
DX: O26.91 Pregnancy related conditions, unspecified, first trimester (principal); S30.0XXA Contusion of lower back and pelvis, initial encounter; Y04.8XXA Assault by other bodily force, initial encounter; M54.50 Low back pain, unspecified; G43.909 Migraine, unspecified, not intractable, without status migrainosus; B19.20 Unspecified viral hepatitis C without hepatic coma; Z3A.13 13 weeks gestation of pregnancy; Y92.009 Unspecified place in unspecified non-institutional (private) residence as the place of occurrence of the external cause; Y93.9 Activity, unspecified; Y99.9 Unspecified external cause status

== ENCOUNTER → 2021-10-30 | Outpatient (REF) | payer OTHER ==
[2021-10-30 20:25] LABS: GC DNA AMPLIFICATION NEGATIVE (NEGATIVE)
== END ==
LOC: M SFHCWAGY 16:38
PROVIDERS: ATTEND Obstetrics & Gynecology
DX: Z36.89 Encounter for other specified antenatal screening (principal); Z3A.00 Weeks of gestation of pregnancy not specified

== ENCOUNTER → 2021-12-11 | Outpatient (CLI) | payer OTHER ==
[2021-12-11 18:00] LABS: GC DNA AMPLIFICATION NEGATIVE (NEGATIVE)
== END ==
LOC: M WUC 12:51
PROVIDERS: ATTEND Family Medicine
DX: F11.20 Opioid dependence, uncomplicated (principal)

== ENCOUNTER → 2021-12-14 | Outpatient (CLI) | payer OTHER ==
[2021-12-14 11:24] LABS: HEMATOCRIT 36.9 % (36.0-47.0); HEMOGLOBIN 12.1 g/dl (12.0-15.5); MEAN CORPUSCULAR HEMOGLOBIN 29.9 pg (27.0-33.0); MEAN CORPUSCULAR HGB CONC 32.8 g/dl (32.0-36.5); MEAN CORPUSCULAR VOLUME 91.1 fl (80.0-96.0); PLATELET COUNT, AUTOMATED 169 10^3/uL (150-450); RED BLOOD COUNT 4.05 10^6/uL (4.00-5.40); WHITE BLOOD COUNT 11.2 10^3/uL (4.0-10.0)
[2021-12-14 12:02] LABS: HCG, SERUM QUALITATIVE POSITIVE (NEGATIVE)
[2021-12-14 13:02] LABS: ALBUMIN 2.9 GM/DL (3.2-5.2); ALT/SGPT 17 U/L (12-78); BILIRUBIN,TOTAL 0.2 MG/DL (0.2-1.0); BLOOD UREA NITROGEN 10 MG/DL (7-18); CALCIUM LEVEL 8.8 MG/DL (8.5-10.1); CARBON DIOXIDE LEVEL 29 MEQ/L (21-32); CHLORIDE LEVEL 106 MEQ/L (98-107); CREATININE FOR GFR 0.59 MG/DL (0.55-1.30); GLOMERULAR FILTRATION RATE > 60.0 (>60); GLUCOSE, FASTING 65 MG/DL (70-100); POTASSIUM SERUM 4.7 MEQ/L (3.5-5.1); SODIUM LEVEL 138 MEQ/L (136-145); TOTAL PROTEIN 6.4 GM/DL (6.4-8.2)
[2021-12-14 13:20] LABS: HEPATITIS B SURFACE ANTIGEN NEGATIVE (NEGATIVE)
[2021-12-14 13:48] LABS: HIV 1&2 SCREEN CENTAUR NEGATIVE (NEGATIVE)
[2021-12-14 14:00] LABS: HEPATITIS C VIRUS ABY INDEX > 11.0 INDEX (<0.8)
== END ==
LOC: M LAB 10:34
PROVIDERS: ATTEND Family Medicine
DX: F11.20 Opioid dependence, uncomplicated (principal)

== ENCOUNTER → 2022-01-01 | Outpatient (REF) | payer OTHER ==
[2022-01-01 14:51] LABS: GC DNA AMPLIFICATION NEGATIVE (NEGATIVE)
== END ==
LOC: M SFHCWAGY 12:50
PROVIDERS: ATTEND Obstetrics & Gynecology
DX: O23.592 Infection of other part of genital tract in pregnancy, second trimester (principal); Z3A.00 Weeks of gestation of pregnancy not specified

== ENCOUNTER → 2022-01-14 | Outpatient (CLI) | payer OTHER | LOC: M WHC 11:40 | PROVIDERS: ATTEND Obstetrics & Gynecology | DX: Z34.92 Encounter for supervision of normal pregnancy, unspecified, second trimester (principal); Z3A.27 27 weeks gestation of pregnancy ==

== ENCOUNTER → 2022-01-15 | Outpatient (CLI) | payer OTHER | LOC: M LAB 06:25 | PROVIDERS: ATTEND Obstetrics & Gynecology | DX: O23.592 Infection of other part of genital tract in pregnancy, second trimester (principal) ==

== ENCOUNTER 2022-10-12 09:36 | Emergency (ER) | payer MEDICAID, OTHER ==
[~2022-10-12] VITALS: Ht 172.7 cm; Wt 79.7 kg
[2022-10-12] MEDS ORDERED: BUSP5TA PO (10:18)
[2022-10-12] MEDS ORDERED: ARIP1TAB6 (10:18)
[2022-10-12 11:16] LABS: BASO % 0.3 % (0.0-1.0); EOS # 0.1 10^3/uL (0.0-0.5); EOS % 0.7 % (0.0-3.0); HEMATOCRIT 44.7 % (36.0-47.0); HEMOGLOBIN 14.8 g/dl (12.0-15.5); LYMPH % 20.2 % (24.0-44.0); MEAN CORPUSCULAR HEMOGLOBIN 28.5 pg (27.0-33.0); MEAN CORPUSCULAR HGB CONC 33.1 g/dl (32.0-36.5); MEAN CORPUSCULAR VOLUME 86.1 fl (80.0-96.0); MONO # 0.6 10^3/uL (0.0-0.8); MONO % 6.5 % (2.0-8.0); NEUTROPHILS % 71.8 % (36.0-66.0); PLATELET COUNT, AUTOMATED 225 10^3/uL (150-450); RED BLOOD COUNT 5.19 10^6/uL (4.00-5.40); WHITE BLOOD COUNT 9.8 10^3/uL (4.0-10.0)
[2022-10-12 11:50] LABS: BARBITURATES URINE NEGATIVE (NEGATIVE); BENZODIAZEPINES URINE NEGATIVE (NEGATIVE); COCAINE METABOLITE URINE NEGATIVE (NEGATIVE); OPIATES URINE NEGATIVE (NEGATIVE); PHENCYCLIDINE URINE NEGATIVE (NEGATIVE)
[2022-10-12 11:52] LABS: AMPHETAMINES LEVEL URINE POSITIVE (NEGATIVE); CANNABINOIDS URINE POSITIVE (NEGATIVE); METHADONE URINE POSITIVE (NEGATIVE)
[2022-10-12 11:53] LABS: ETHYL ALCOHOL (ETHANOL) 0.003 % (0.000-0.010); HCG, SERUM QUALITATIVE NEGATIVE (NEGATIVE)
[2022-10-12 11:54] LABS: ACETAMINOPHEN LEVEL < 2.0 UG/ML (10.0-20.0); ALBUMIN 3.4 G/DL (3.2-5.2); ALKALINE PHOSPHATASE 68 U/L (46-116); ALT/SGPT 72 U/L (7.0-40); AST/SGOT 82 U/L (<34); BILIRUBIN,DIRECT 0.1 MG/DL (<0.4); BILIRUBIN,TOTAL 0.3 MG/DL (0.3-1.2); BLOOD UREA NITROGEN 15 MG/DL (9-23); CARBON DIOXIDE LEVEL 26 MMOL/L (20-31); CHLORIDE LEVEL 106 MMOL/L (98-107); CREATININE FOR GFR 1.27 MG/DL (0.55-1.30); GLOMERULAR FILTRATION RATE 53.7 (>60); GLUCOSE, FASTING 90 MG/DL (60-100); POTASSIUM SERUM 3.5 MMOL/L (3.5-5.1); SALICYLATE LEVEL 4.1 MG/DL (<30); SODIUM LEVEL 142 MMOL/L (136-145); TOTAL PROTEIN 6.7 G/DL (5.7-8.2)
[2022-10-12 11:56] LABS: THYROID STIMULATING HORMONE 1.849 uIU/ML (0.55-4.78)
[2022-10-12 11:57] LABS: CPK CREATINE PHOSPHOKINASE 160 U/L (34-145)
[2022-10-12] MEDS ORDERED: METHADONE 10MG TAB PO ONE (12:45)
[2022-10-12 13:04] VITALS: BP 96/63
[2022-10-13] MEDS ORDERED: ARIP1TAB6 PO (19:39)
== END 2022-10-12 13:07 | disposition home or self-care (01) ==
LOC: M ED 09:36 → EDBD 09:36 → M ED 13:07
DX: T88.7XXA Unspecified adverse effect of drug or medicament, initial encounter (principal); R56.9 Unspecified convulsions; F19.10 Other psychoactive substance abuse, uncomplicated; R00.1 Bradycardia, unspecified; I49.8 Other specified cardiac arrhythmias; F31.9 Bipolar disorder, unspecified; F17.200 Nicotine dependence, unspecified, uncomplicated; G43.909 Migraine, unspecified, not intractable, without status migrainosus; Z79.899 Other long term (current) drug therapy
CPT/HCPCS: 36415; 70450; 71045; 80048; 80076; 80143; 80307; 82077; 82550; 83605; 84443; 84703; 85025; 93005; 93041; 94760; 99284; S0109

== ENCOUNTER 2022-10-13 12:09 | Inpatient (IN) | payer MEDICAID ==
[~2022-10-13 12:09] MED LIST changes: +ARIP1TAB6; +BUSP5TA PO
[2022-10-13] MEDS ORDERED: levETIRAcetam INJection 1,000 MG in D5W 100 ML IV ONE (12:30)
[2022-10-13 12:42] LABS: HEMATOCRIT 48.9 % (36.0-47.0); HEMOGLOBIN 15.8 g/dl (12.0-15.5); MEAN CORPUSCULAR HEMOGLOBIN 28.3 pg (27.0-33.0); MEAN CORPUSCULAR HGB CONC 32.3 g/dl (32.0-36.5); MEAN CORPUSCULAR VOLUME 87.5 fl (80.0-96.0); PLATELET COUNT, AUTOMATED 293 10^3/uL (150-450); RED BLOOD COUNT 5.59 10^6/uL (4.00-5.40); WHITE BLOOD COUNT 11.7 10^3/uL (4.0-10.0)
[2022-10-13 13:04] LABS: BARBITURATES URINE NEGATIVE (NEGATIVE); BENZODIAZEPINES URINE NEGATIVE (NEGATIVE); COCAINE METABOLITE URINE NEGATIVE (NEGATIVE); OPIATES URINE NEGATIVE (NEGATIVE); PHENCYCLIDINE URINE NEGATIVE (NEGATIVE)
[2022-10-13 13:05] LABS: AMPHETAMINES LEVEL URINE POSITIVE (NEGATIVE); CANNABINOIDS URINE POSITIVE (NEGATIVE); METHADONE URINE POSITIVE (NEGATIVE)
[2022-10-13 13:34] LABS: BLOOD UREA NITROGEN 13 MG/DL (9-23); CALCIUM LEVEL 8.9 MG/DL (8.5-10.1); CARBON DIOXIDE LEVEL 22 MMOL/L (20-31); CHLORIDE LEVEL 105 MMOL/L (98-107); CREATININE FOR GFR 0.84 MG/DL (0.55-1.30); GLOMERULAR FILTRATION RATE > 60.0 (>60); GLUCOSE, FASTING 213 MG/DL (60-100); POTASSIUM SERUM 3.3 MMOL/L (3.5-5.1); SODIUM LEVEL 137 MMOL/L (136-145)
[2022-10-13 13:42] LABS: CPK CREATINE PHOSPHOKINASE 799 U/L (34-145)
[2022-10-13 14:39] LABS: MAGNESIUM LEVEL 1.5 MG/DL (1.8-2.4)
[2022-10-13] MEDS ORDERED: MAG SULF 1GM/100ML (MAG RUN) 1 GM in IV 1 EA IV ONE (17:00)
[2022-10-13] MEDS ORDERED: NS 1,000 ML IV ONE (17:20)
[2022-10-13] MEDS ORDERED: NS 1,000 ML IV SCH (17:40)
[2022-10-13] MEDS ORDERED: POTASSIUM CHLORIDE 10MEQ SR TABLET PO ONE (17:40)
[2022-10-13] MEDS ORDERED: MAGNESIUM SULFATE IN WATER 2 GM in IV 1 EA IV STA ×2 (17:44)
[2022-10-13 18:01] LABS: HEMOGLOBIN A1c 5.3 % (4.0-6.0)
[2022-10-13 18:07] LABS: ALBUMIN 3.4 G/DL (3.2-5.2); BILIRUBIN,DIRECT 0.1 MG/DL (<0.4); BILIRUBIN,TOTAL 0.3 MG/DL (0.3-1.2); TOTAL PROTEIN 6.6 G/DL (5.7-8.2)
[2022-10-13 18:43] LABS: HEPATITIS B SURFACE ANTIGEN NEGATIVE (NEGATIVE)
[2022-10-13 19:01] LABS: PARTIAL THROMBOPLASTIN TIME 25.7 SECONDS (24.8-34.2); PROTHROMBIN TIME 13.4 SECONDS (12.5-14.5)
[2022-10-13 19:04] LABS: HEPATITIS B CORE ANTIBODY IGM NEGATIVE (NEGATIVE)
[2022-10-13 19:07] LABS: HEPATITIS C VIRUS ABY INDEX > 11.0 INDEX (<0.8)
[2022-10-13] MEDS ORDERED: ARIP1TAB6 PO (19:39)
[2022-10-13] MEDS ORDERED: HOME MED LIST COMPLETE! XX SCH (19:40)
[2022-10-13] MEDS: NS 1,000 ML IV SCH (19:52)
[2022-10-13 21:00] VITALS: BP 102/69
[2022-10-13] MEDS ORDERED: ISOVUE-370 76% 100ML VIAL As Ordered ONE (21:04)
[2022-10-13 21:20] LABS: FREE T4 1.05 NG/DL (0.89-1.76); MAGNESIUM LEVEL 2.4 MG/DL (1.8-2.4); POTASSIUM SERUM 3.7 MMOL/L (3.5-5.1); THYROID STIMULATING HORMONE 0.741 uIU/ML (0.55-4.78)
[2022-10-13 21:38] VITALS: BP 106/70
[2022-10-13] MEDS: levETIRAcetam 250MG TABLET (KEPPRA) PO SCH (22:05)
[2022-10-13 23:03] LABS: CK-MB VALUE MASS 12.1 NG/ML (<3.6)
[2022-10-13 23:21] LABS: MB/CK RELATIVE INDEX 0.07 (< OR =4)
[2022-10-14] VITALS (11 sets, daily range): BP systolic 99–118; BP diastolic 61–73
[2022-10-14] MEDS: NS 1,000 ML IV SCH ×3 (03:05→17:56)
[2022-10-14 04:57] LABS: HEMATOCRIT 40.4 % (36.0-47.0); MEAN CORPUSCULAR HEMOGLOBIN 28.7 pg (27.0-33.0); MEAN CORPUSCULAR HGB CONC 33.4 g/dl (32.0-36.5); PLATELET COUNT, AUTOMATED 224 10^3/uL (150-450); WHITE BLOOD COUNT 9.2 10^3/uL (4.0-10.0)
[2022-10-14 04:58] LABS: HEMOGLOBIN 13.5 g/dl (12.0-15.5)
[2022-10-14] MEDS: HEPARIN SOD (PORCINE) 5000UNITS/ML 1ML VIAL/SYRINGE SQ SCH ×3 (05:18→21:17)
[2022-10-14 05:21] LABS: CK-MB VALUE MASS 7.3 NG/ML (<3.6)
[2022-10-14 05:36] LABS: ALBUMIN 2.9 G/DL (3.2-5.2); ALKALINE PHOSPHATASE 65 U/L (46-116); ALT/SGPT 89 U/L (7.0-40); AST/SGOT 228 U/L (<34); BILIRUBIN,TOTAL 0.3 MG/DL (0.3-1.2); BLOOD UREA NITROGEN 8 MG/DL (9-23); CALCIUM LEVEL 7.9 MG/DL (8.5-10.1); CARBON DIOXIDE LEVEL 27 MMOL/L (20-31); CHLORIDE LEVEL 107 MMOL/L (98-107); CPK CREATINE PHOSPHOKINASE 15644 U/L (34-145); CREATININE FOR GFR 0.69 MG/DL (0.55-1.30); GLOMERULAR FILTRATION RATE > 60.0 (>60); GLUCOSE, FASTING 84 MG/DL (60-100); MAGNESIUM LEVEL 2.1 MG/DL (1.8-2.4); MB/CK RELATIVE INDEX 0.04 (< OR =4); POTASSIUM SERUM 3.6 MMOL/L (3.5-5.1); SODIUM LEVEL 141 MMOL/L (136-145); TOTAL PROTEIN 5.7 G/DL (5.7-8.2)
[2022-10-14] MEDS: ASPIRIN 81MG CHEW TABLET PO SCH (08:44)
[2022-10-14] MEDS: levETIRAcetam 250MG TABLET (KEPPRA) PO SCH ×2 (08:44→21:21)
[2022-10-14] MEDS ORDERED: POTASSIUM CHLORIDE 10MEQ SR TABLET PO ONE (09:00)
[2022-10-14 10:39] LABS: PHOSPHORUS LEVEL 3.2 MG/DL (2.5-4.9)
[2022-10-14] MEDS ORDERED: METH10SO PO (12:25)
[2022-10-15] VITALS (9 sets, daily range): BP systolic 110–135; BP diastolic 60–73
[2022-10-15] MEDS: NS 1,000 ML IV SCH ×3 (01:40→19:39)
[2022-10-15 05:07] LABS: HEMOGLOBIN 12.8 g/dl (12.0-15.5); MEAN CORPUSCULAR HEMOGLOBIN 28.9 pg (27.0-33.0); MEAN CORPUSCULAR HGB CONC 33.7 g/dl (32.0-36.5); MEAN CORPUSCULAR VOLUME 85.8 fl (80.0-96.0); PLATELET COUNT, AUTOMATED 206 10^3/uL (150-450); RED BLOOD COUNT 4.43 10^6/uL (4.00-5.40); WHITE BLOOD COUNT 6.3 10^3/uL (4.0-10.0)
[2022-10-15] MEDS: HEPARIN SOD (PORCINE) 5000UNITS/ML 1ML VIAL/SYRINGE SQ SCH ×3 (05:27→21:11)
[2022-10-15 05:41] LABS: ALBUMIN 2.8 G/DL (3.2-5.2); ALKALINE PHOSPHATASE 59 U/L (46-116); ALT/SGPT 85 U/L (7.0-40); AST/SGOT 193 U/L (<34); BILIRUBIN,TOTAL 0.3 MG/DL (0.3-1.2); BLOOD UREA NITROGEN < 5 MG/DL (9-23); CALCIUM LEVEL 8.1 MG/DL (8.5-10.1); CARBON DIOXIDE LEVEL 27 MMOL/L (20-31); CHLORIDE LEVEL 108 MMOL/L (98-107); CREATININE FOR GFR 0.65 MG/DL (0.55-1.30); GLOMERULAR FILTRATION RATE > 60.0 (>60); GLUCOSE, FASTING 84 MG/DL (60-100); MAGNESIUM LEVEL 1.6 MG/DL (1.8-2.4); PHOSPHORUS LEVEL 2.7 MG/DL (2.5-4.9); SODIUM LEVEL 140 MMOL/L (136-145); TOTAL PROTEIN 5.5 G/DL (5.7-8.2)
[2022-10-15] MEDS ORDERED: MAG SULF 1GM/100ML (MAG RUN) 1 GM in IV 1 EA IV ONE (06:00)
[2022-10-15] MEDS: ASPIRIN 81MG CHEW TABLET PO SCH (08:28)
[2022-10-15] MEDS: levETIRAcetam 250MG TABLET (KEPPRA) PO SCH ×2 (08:28→21:10)
[2022-10-15] MEDS: MAG SULF 1GM/100ML (MAG RUN) 1 GM in IV 1 EA IV SCH ×2 (08:30→09:37)
[2022-10-15] MEDS ORDERED: LIDOCAINE 1% MDV 20ML VIAL As Ordered ONE (09:42)
[2022-10-15 12:43] LABS: MAGNESIUM LEVEL 2.5 MG/DL (1.8-2.4); POTASSIUM SERUM 3.8 MMOL/L (3.5-5.1)
[2022-10-15] MEDS ORDERED: SODIUM CHLORIDE 0.9% INJ 10 ML SYR IV PRN (15:20)
[2022-10-15] MEDS: SODIUM CHLORIDE 0.9% INJ 10 ML SYR IV SCH (17:37)
[2022-10-16] MEDS: NS 1,000 ML IV SCH ×3 (03:10→20:05)
[2022-10-16 03:27] VITALS: BP 104/64
[2022-10-16] MEDS: HEPARIN SOD (PORCINE) 5000UNITS/ML 1ML VIAL/SYRINGE SQ SCH ×3 (05:15→20:07)
[2022-10-16] MEDS: SODIUM CHLORIDE 0.9% INJ 10 ML SYR IV SCH ×2 (05:15→17:11)
[2022-10-16 07:54] VITALS: BP 116/74
[2022-10-16] MEDS: levETIRAcetam 250MG TABLET (KEPPRA) PO SCH ×2 (09:15→20:06)
[2022-10-16] MEDS: ASPIRIN 81MG CHEW TABLET PO SCH (09:15)
[2022-10-16] MEDS: ACETAMINOPHEN TAB 650MG DOSE (2X325MG) PO PRN (09:16)
[2022-10-16 11:55] VITALS: BP 123/73
[2022-10-16 12:44] LABS: MAGNESIUM LEVEL 1.7 MG/DL (1.8-2.4)
[2022-10-16 15:54] VITALS: BP 112/61
[2022-10-16] MEDS ORDERED: MAG SULF 1GM/100ML (MAG RUN) 1 GM in IV 1 EA IV ONE ×2 (17:00→19:00)
[2022-10-16 19:40] VITALS: BP 111/67
[2022-10-16] MEDS ORDERED: CALCIUM GLUCONATE 1,000 MG in D5W MINI-BAG PLUS 100 ML IV ONE (20:00)
[2022-10-17] VITALS (7 sets, daily range): BP systolic 106–133; BP diastolic 56–77
[2022-10-17] MEDS: NS 1,000 ML IV SCH ×3 (05:10→20:43)
[2022-10-17] MEDS: SODIUM CHLORIDE 0.9% INJ 10 ML SYR IV SCH ×2 (05:13→17:40)
[2022-10-17] MEDS: HEPARIN SOD (PORCINE) 5000UNITS/ML 1ML VIAL/SYRINGE SQ SCH ×3 (05:14→22:00)
[2022-10-17] MEDS: ASPIRIN 81MG CHEW TABLET PO SCH (09:03)
[2022-10-17] MEDS: ACETAMINOPHEN TAB 650MG DOSE (2X325MG) PO PRN (09:03)
[2022-10-17] MEDS: levETIRAcetam 250MG TABLET (KEPPRA) PO SCH ×2 (09:03→20:43)
[2022-10-17 09:05] LABS: MAGNESIUM LEVEL 1.8 MG/DL (1.8-2.4); POTASSIUM SERUM 3.8 MMOL/L (3.5-5.1)
[2022-10-17] MEDS ORDERED: MAGNESIUM OXIDE 400MG TAB (MAG-OX) PO SCH (21:00)
[2022-10-18 03:41] VITALS: BP 127/67
[2022-10-18] MEDS: NS 1,000 ML IV SCH ×3 (04:03→21:06)
[2022-10-18] MEDS: SODIUM CHLORIDE 0.9% INJ 10 ML SYR IV SCH ×2 (05:07→18:20)
[2022-10-18] MEDS: HEPARIN SOD (PORCINE) 5000UNITS/ML 1ML VIAL/SYRINGE SQ SCH ×3 (05:08→21:06)
[2022-10-18 07:17] VITALS: BP 127/70
[2022-10-18 07:56] LABS: MAGNESIUM LEVEL 1.7 MG/DL (1.8-2.4); POTASSIUM SERUM 3.8 MMOL/L (3.5-5.1)
[2022-10-18] MEDS ORDERED: POTASSIUM CHLORIDE 10MEQ SR TABLET PO SCH (09:00)
[2022-10-18] MEDS ORDERED: MAG SULF 1GM/100ML (MAG RUN) 1 GM in IV 1 EA IV ONE (09:00)
[2022-10-18] MEDS ORDERED: LOPERAMIDE 2 MG CAPLET PO PRN (09:10)
[2022-10-18] MEDS ORDERED: LOPERAMIDE 2 MG CAPLET PO ONE (09:10)
[2022-10-18] MEDS: MAGNESIUM OXIDE 400MG TAB (MAG-OX) PO SCH ×3 (09:29→21:05)
[2022-10-18] MEDS: levETIRAcetam 250MG TABLET (KEPPRA) PO SCH ×2 (09:29→21:05)
[2022-10-18] MEDS: CALCIUM CARBONATE 500 MG CHEW U/D PO SCH ×3 (09:30→18:19)
[2022-10-18] MEDS: POTASSIUM CHLORIDE 10MEQ SR TABLET PO SCH ×2 (09:30→21:05)
[2022-10-18] MEDS: ASPIRIN 81MG CHEW TABLET PO SCH (09:31)
[2022-10-18 12:31] LABS: POTASSIUM SERUM 3.9 MMOL/L (3.5-5.1)
[2022-10-18 15:50] VITALS: BP 116/57
[2022-10-18 19:49] VITALS: BP 128/68
[2022-10-18 20:13] LABS: MAGNESIUM LEVEL 1.7 MG/DL (1.8-2.4); POTASSIUM SERUM 3.6 MMOL/L (3.5-5.1)
[2022-10-18 23:47] VITALS: BP 128/78
[2022-10-19 02:01] LABS: MAGNESIUM LEVEL 1.8 MG/DL (1.8-2.4); POTASSIUM SERUM 3.8 MMOL/L (3.5-5.1)
[2022-10-19 04:06] VITALS: BP 134/83
[2022-10-19] MEDS: NS 1,000 ML IV SCH (04:59)
[2022-10-19] MEDS: SODIUM CHLORIDE 0.9% INJ 10 ML SYR IV SCH (05:45)
[2022-10-19] MEDS: HEPARIN SOD (PORCINE) 5000UNITS/ML 1ML VIAL/SYRINGE SQ SCH (05:49)
[2022-10-19 07:26] VITALS: BP 125/84
[2022-10-19] MEDS ORDERED: MUPIROCIN 2% OINT 22 GM TUBE TOP ONE (08:35)
[2022-10-19] MEDS ORDERED: MAGN400T35 PO (10:48)
[2022-10-19] MEDS ORDERED: ASPI81CH33 PO (10:48)
[2022-10-19] MEDS ORDERED: KEPP1TAB2 PO (10:48)
[2022-10-19] MEDS ORDERED: POTA-298 PO (10:48)
== END 2022-10-19 08:40 | disposition left against medical advice (07) | DRG 201 ==
LOC: M ED 12:09 → EEVIPCON 17:38 → M ED INP 17:38 → ENRESERV 19:31 → M ICU 21:30 → M PCU 10-15 16:12
PROVIDERS: ADMIT Internal Medicine; ATTEND Internal Medicine
PROC: 02HV33Z Insertion of Infusion Device into Superior Vena Cava, Percutaneous Approach (ICD-10-PCS; principal; 2022-10-15 09:00)
DX: I47.21 Torsades de pointes (principal); I21.A1 Myocardial infarction type 2; E87.20 Acidosis, unspecified; F05 Delirium due to known physiological condition; M62.82 Rhabdomyolysis; R56.9 Unspecified convulsions; E83.42 Hypomagnesemia; I45.81 Long QT syndrome; E86.0 Dehydration; E87.6 Hypokalemia; F11.10 Opioid abuse, uncomplicated; F13.239 Sedative, hypnotic or anxiolytic dependence with withdrawal, unspecified; F19.10 Other psychoactive substance abuse, uncomplicated; I35.1 Nonrheumatic aortic (valve) insufficiency; J98.11 Atelectasis; R33.9 Retention of urine, unspecified; R74.01 Elevation of levels of liver transaminase levels; R94.5 Abnormal results of liver function studies; Z79.891 Long term (current) use of opiate analgesic; I49.8 Other specified cardiac arrhythmias; R00.1 Bradycardia, unspecified

== ENCOUNTER 2023-03-03 13:31 | Emergency (ER) | payer MEDICAID, OTHER ==
[~2023-03-03] VITALS: Ht 172.7 cm; Wt 67.6 kg
[~2023-03-03 13:31] MED LIST changes: +ARIP1TAB6 PO; +ASPI81CH33 PO; -GABA-283 PO; +GABA-284 PO; +KEPP1TAB2 PO; +MAGN400T35 PO; +METH10SO PO; +POTA-298 PO
[2023-03-03 15:42] VITALS: BP 137/87; TEMP 98.4; O2SAT 95
== END 2023-03-03 15:44 | disposition home or self-care (01) ==
LOC: M ED 13:31
DX: S09.90XA Unspecified injury of head, initial encounter (principal); R22.31 Localized swelling, mass and lump, right upper limb; G40.909 Epilepsy, unspecified, not intractable, without status epilepticus; F17.200 Nicotine dependence, unspecified, uncomplicated; F10.10 Alcohol abuse, uncomplicated; Y04.0XXA Assault by unarmed brawl or fight, initial encounter; Z79.82 Long term (current) use of aspirin; Z79.899 Other long term (current) drug therapy

== ENCOUNTER 2023-04-23 14:37 | Inpatient (IN) | payer OTHER ==
[~2023-04-23] VITALS: Ht 172.7 cm; Wt 75.0 kg
[~2023-04-23 14:37] MED LIST changes: +ADDE30TA PO; +BUPR8SUB SL; +MAGN400T2 PO; +PREG150C2 PO; +QUET50TA4 PO
[2023-04-23] MEDS ORDERED: ACETAMINOPHEN TAB 650MG DOSE (2X325MG) PO PRN (16:10)
[2023-04-23] MEDS ORDERED: traZODone 50 MG TAB PO PRN (16:10)
[2023-04-23] MEDS ORDERED: MOM 30ML SUSPENSION UDC PO PRN (16:10)
[2023-04-23] MEDS ORDERED: IBUPROFEN 400MG TAB PO PRN (16:10)
[2023-04-23] MEDS ORDERED: diphenhydrAMINE 25MG CAP PO PRN (16:10)
[2023-04-23] MEDS ORDERED: MAALOX 30 ML SUSP *UDC PO PRN (16:10)
[2023-04-23 18:45] VITALS: BP 149/92; TEMP 97.1; O2SAT 100
[2023-04-24 06:47] VITALS: BP 125/66; TEMP 98.6; O2SAT 97
[2023-04-24] MEDS ORDERED: MAGN400T35 PO (08:42)
[2023-04-24] MEDS ORDERED: HOME MED LIST COMPLETE! XX SCH (08:45)
[2023-04-24] MEDS: BUPRENORPHINE HCL 8MG SUBINGUAL TABLET SL SCH ×3 (09:10→20:06)
[2023-04-24] MEDS: MAGNESIUM OXIDE 400MG TAB (MAG-OX) PO SCH ×2 (09:10→20:06)
[2023-04-24 13:54] LABS: CHLAMYDIA DNA AMPLIFICATION NEGATIVE (NEGATIVE); GC DNA AMPLIFICATION POSITIVE (NEGATIVE)
[2023-04-24 16:14] VITALS: BP 121/78; TEMP 98.7; O2SAT 100
[2023-04-24] MEDS ORDERED: QUEtiapine FUMARATE 50MG TAB PO SCH (21:00)
[2023-04-25 06:57] VITALS: BP 103/60; TEMP 98.6; O2SAT 99
[2023-04-25] MEDS: BUPRENORPHINE HCL 8MG SUBINGUAL TABLET SL SCH ×2 (08:28→15:36)
[2023-04-25] MEDS: MAGNESIUM OXIDE 400MG TAB (MAG-OX) PO SCH (08:28)
[2023-04-25] MEDS ORDERED: DOXYCYCLINE HYCLATE 100MG TABLET PO SCH (09:00)
[2023-04-25] MEDS ORDERED: LIDOCAINE 1% SDV 5ML VIAL DILUENT ONE (14:00)
[2023-04-25] MEDS ORDERED: cefTRIAXone SOD 2GM VIAL IM ONE (14:00)
== END 2023-04-25 15:51 | disposition home or self-care (01) | DRG 754 ==
LOC: M PSY 16:07
PROVIDERS: ADMIT Psychiatry & Neurology Psychiatry; ATTEND Student in an Organized Health Care Education/Training Program
DX: F32.A Depression, unspecified (principal); A54.9 Gonococcal infection, unspecified; Z91.119 Patient's noncompliance with dietary regimen due to unspecified reason; F41.9 Anxiety disorder, unspecified; F12.90 Cannabis use, unspecified, uncomplicated

== ENCOUNTER 2023-06-04 01:02 | Emergency (ER) | payer OTHER, MEDICAID ==
[~2023-06-04] VITALS: Ht 172.7 cm; Wt 65.9 kg
[2023-06-04 01:03] VITALS: BP 124/84; TEMP 96.7; O2SAT 97
== END 2023-06-04 04:12 | disposition left against medical advice (07) ==
LOC: M ED 01:02
DX: Z53.21 Procedure and treatment not carried out due to patient leaving prior to being seen by health care provider (principal)